=== PATIENT | male | born 1990 | race Two or more races ===

== ENCOUNTER 2024-01-31 12:02 | Inpatient (IN) | payer MEDICAID, SELFPAY ==
[2024-01-31 12:02] VITALS: PULSE 78; RESP 16; O2SAT 98
[2024-01-31 12:05] VITALS: BP 116/83; PULSE 99; RESP 23; TEMP 36.9
--- NOTE | 2024-01-31 15:02 | PC.NURSE ---
Admitted a 33 y/o male, mechanically ventilated from Tele via bed under the care of Dr Velasquez. Alert and responsive. Denies any pain or discomfort. Noted to have scattered redness /rashes to back, shoulder blades and lower back, c/o itching. Resident admitted with diagnosis of Pneumonia and will be on Augmentin and Doxycycline po. As per from the Tele nurse, resident completed the Oseltamivir for the Influenza. Seen by Dr Velasquez today, made aware of the admission and orders, with order received to discontinue the melatonin. Kept comfortably in bed. Call light within reach.
--- NOTE | 2024-01-31 15:08 | PC.SS ---
Resident admitted to subacute care on ventilator with trach in place, he eats by mouth. Resident does not have muslim preference and does not wish to have spiritual care visits from payment analyst. Resident mother Olive Galdamez, at bedside and is his decision maker. Resident has clear speech able to make needs known, he is alert and oriented. Resident was seen by Food Tester Dr. Padmaja Ureña with no recommendations, he will be seen by professor of communication and writing and DDS. He is not a registered voter or has any background. Resident mother will do his laundry, resident refuses to have his inventory labeled, this SSD informed him all items should be labeled in the event they are misplaced. He declined, no items will be labeled and family will remain responsible for all items. Resident is FULL CODE, with full treatment, he will remain in current care for unknown length of time.
--- NOTE | 2024-01-31 15:15 | PC.SS ---
This SSD completed admission packet with resident MARILEE Galdamez at resident bedside. No POA in place service has been offered, resident said he will think about it. This SSD will follow up with resident regarding POA service.
--- NOTE | 2024-01-31 15:42 | PC.IP ---
IP note: At 1400 placed TST to RUE and resident tolerated well. Discussed with him and offered after completion of antibiotic therapy, the current Influenza vaccine and also at an appropriate time receive the Pneumococcal vaccine. Resident was receptive to the idea of the vaccines and I will follow up after antibiotic therapy is complete and no indication of fever or infection are present.
[2024-01-31 16:00] VITALS: BP 109/77; PULSE 89; RESP 26; TEMP 36.8; O2SAT 98
--- NOTE | 2024-01-31 16:29 | PC.SS ---
Resident seen by Spanish Lecturer Dr. Ureña for annual optometry consultation. Resident tolerated treatment well, no new orders or recommendations, resident will continue current care.
[2024-01-31 18:26] VITALS: PULSE 81; PULSE 89; RESP 28; O2SAT 99
--- NOTE | 2024-01-31 20:05 | PD.SAHP ---
Physical exam Physical Exam Vital signs: Temp Pulse Resp BP Pulse Ox O2 Del Method FiO2 98.9 F 110 H 14 116/81 99 Mechanical Ventilation 30 02/01/24 17:13 02/01/24 17:13 02/01/24 17:13 02/01/24 17:13 02/01/24 17:13 02/01/24 17:13 02/01/24 12:40 Narrative: awake , alert, VSS Constitutional Constitutional: no acute distress and cooperative Comments: VSS HEENT Exam Head: Present normocephalic and atraumatic Eye: Present EOMI and PERRL ENT: Present mucous membranes moist, external ear normal and TM's clear bilaterally Neck Exam Neck: Present supple Chest/Breast/Axilla Exam Comments: NAD Respiratory Exam Respiratory: Present chest non-tender, lungs clear, normal breath sounds and patient mechanically ventilated Cardiovascular Exam Cardiovascular: Present RRR, S1 and S2 Abdominal Exam Abdominal: Present soft and normoactive bowel sounds Rectal Exam Comments: deferred Exam Comments: Incontinent. No anatomical deficit Extremities Exam Comments: General muscular atrophy more so of the proximal muscles of the upper and lower extremities Back/Spine/Pelvis Exam Comments: NAD Skin Exam Comments: NAD Neurological Exam Neurological: Present alert and oriented X3 Comments: Bed bound because of severe muscular atrophy as in LIMB GIRDLE MUSCULAR ATROPHY and depencent for all care but normal mentation, voice and swallowing Psychiatric Exam Comments: NAD Rehabilitation potential Diagnosis (1) Pneumonia and influenza: Status: Acute (2) Ventilator dependence: Status: Chronic (3) Limb-girdle muscular dystrophy, type 2B: Status: Chronic (4) Tracheostomy in place: Status: Chronic (5) Chronic respiratory failure with hypoxia and hypercapnia: Status: Chronic (6) G tube feedings: Status: Chronic Assessment & Plan Assessment: Pt very cooperative and adjusting to his new environment. All questions answered. Weaning of ventilator was explained. ongoing treatment for Pneumonia. Bladder training to evaluate if pt can be taken off the Avendaño catheter. Plan: treatment and ventilator settings reviewed and continued. Prognosis Prognosis: Very guarded because of the chronic and progressive nature of LGMD If patient not informed of condion, describe why: Pt is very understanding of his diagnosis and prognostic outlook Goals Full, medical, nutritional and Psychological support HPI History of Present Illness HPI: Pt is a 33 years of age with Dx of Limb Girdle muscular dystrophy reportedly type 2B now in . respiratory failure/hypoxia with Trach and Ventilator dependence; Peg tube feeding though pt able to have some PO pureed food for taste in the past, on continued treatment for pneumonia/UTI and responding well to antibiotics; Urinary retention with an indwelling Avendaño catheter being readmitted from acute care after recent discharge home
[2024-01-31] MEDS: AMOXICILLIN/POTASSIUM CLAV 1 EACH TABLET PO (20:25)
[2024-01-31] MEDS: CARBAMIDE PEROXIDE OTIC SOL 15 ML BTL 5 DROP BOTH EARS (20:27)
[2024-01-31] MEDS: FERROUS SULFATE 220 MG/5 ML ELIXIR 300 MG PO (20:28)
[2024-01-31] MEDS: DOXYCYCLINE 100 MG TABLET PO (20:28)
[2024-02-01] VITALS (8 sets, daily range): BP systolic 106–127; BP diastolic 74–84; PULSE 65–127; RESP 14–34; TEMP 36.3–37.2; O2SAT 94–99
[2024-02-01] MEDS: AMOXICILLIN/POTASSIUM CLAV 1 EACH TABLET PO ×2 (09:48→20:20)
[2024-02-01] MEDS: DOXYCYCLINE 100 MG TABLET PO ×2 (09:48→20:20)
--- NOTE | 2024-02-01 12:28 | PC.SS ---
This SSD met with resident and MARILEE Schaefer at resident bedside, went over DC planning and discussed other topics resident wanted to talk about. resident is here for LT subacute care, hes on ventilator with trach in place he requires total care. Resident will remain in current care and will have all subacute care needs shola by staff as his mother is unable to provide care for him at home due to it being a heavy care regimen for her. Resident stated he his mother tried to care for him at home but it was too much for her to handle on her own, he stated he is happy to be back and it feels like home resident is in good spirits he is seen smiling and stated he is happy and relieved to be back in facility. This SSD will continue to make contact with resident monitor for any changes in mood and behavior, and will be offered emotional support as needed. Mother will be in daily for visits.
--- NOTE | 2024-02-01 12:34 | PC.SS ---
Resident and mother Olive Galdamez stated they would like a visitor restriction for resident father Osei Galdamez. Both stated they do not want him being provided any updates or information and would not like him to be allowed in for any visits. This SSD informed EMILIO CASTILLO, charge nurse and front lobby check in and security of the restriction per request of resident and RP Olive Galdamez.
[2024-02-02] VITALS (8 sets, daily range): BP systolic 94–114; BP diastolic 68–84; PULSE 71–105; RESP 16–32; TEMP 36.3–36.8; O2SAT 95–99
[2024-02-02] MEDS: AMOXICILLIN/POTASSIUM CLAV 1 EACH TABLET PO ×2 (09:07→21:31)
[2024-02-02] MEDS: DOXYCYCLINE 100 MG TABLET PO ×2 (09:07→21:29)
[2024-02-02] MEDS: IPRATROPIUM/ALBUTEROL 3 ML AMPUL.NEB INH (18:31)
[2024-02-02] MEDS: FERROUS SULFATE 220 MG/5 ML ELIXIR 300 MG PO (21:29)
[2024-02-03] VITALS (8 sets, daily range): BP systolic 100–115; BP diastolic 67–79; PULSE 78–103; RESP 15–32; TEMP 36.2–37; O2SAT 95–99
[2024-02-03] MEDS: AMOXICILLIN/POTASSIUM CLAV 1 EACH TABLET PO ×2 (08:35→21:21)
[2024-02-03] MEDS: DOXYCYCLINE 100 MG TABLET PO ×2 (08:35→21:21)
--- NOTE | 2024-02-03 18:20 | PD.SAPROG ---
Progress Note - SubAcute DIAGNOSIS (1) Pneumonia and influenza: Status: Acute (2) Ventilator dependence: Status: Chronic (3) Limb-girdle muscular dystrophy, type 2B: Status: Chronic (4) Tracheostomy in place: Status: Chronic (5) Chronic respiratory failure with hypoxia and hypercapnia: Status: Chronic (6) G tube feedings: Status: Chronic SUBJECTIVE Fever:: none Shortness of Breath:: none Pain:: none OBJECTIVE Most recent vital signs: Last Vital Signs Temp 98.2 F 02/03/24 17:42 Pulse 92 02/03/24 17:42 Resp 27 H 02/03/24 17:42 BP 101/74 02/03/24 17:42 Pulse Ox 97 02/03/24 17:42 O2 Del Method Mechanical Ventilation 02/03/24 17:42 FiO2 30 02/03/24 12:30 Neurological:: alert Answers questions:: yes Respiratory:: rhonchi Cardiovascular: RRR Abdomen: soft and nontender Extremities:: deformities (Limb girdle muscle weakness severe due to dystrophy and pt thus bed bound) Tracheostomy:: to ventilator Feeding per:: po Complaints:: none ASSESSMENT & PLAN Assessment: Pt very cooperative and adjusting to his new environment. All questions answered. Weaning off ventilator as per protocol. Plan: treatment and ventilator settings reviewed and continued.
[2024-02-04] VITALS (9 sets, daily range): BP systolic 107–112; BP diastolic 60–81; PULSE 79–104; RESP 14–37; TEMP 36.1–37; O2SAT 97–100
[2024-02-04] MEDS: AMOXICILLIN/POTASSIUM CLAV 1 EACH TABLET PO ×2 (09:39→21:02)
[2024-02-04] MEDS: DOXYCYCLINE 100 MG TABLET PO ×2 (09:39→21:05)
--- NOTE | 2024-02-04 13:27 | PC.PT ---
PT eval completed. Patient is referred to [facility] for PROM on BUE/BLE.
[2024-02-04] MEDS: FERROUS SULFATE 220 MG/5 ML ELIXIR 300 MG PO (21:05)
[2024-02-05 00:46] VITALS: PULSE 87; RESP 24; O2SAT 98
[2024-02-05 05:18] VITALS: PULSE 76; RESP 17; O2SAT 95
[2024-02-05] MEDS: AMOXICILLIN/POTASSIUM CLAV 1 EACH TABLET PO ×2 (09:23→20:48)
[2024-02-05] MEDS: DOXYCYCLINE 100 MG TABLET PO ×2 (09:24→20:48)
[2024-02-05 12:00] VITALS: BP 130/92; PULSE 83; RESP 18; TEMP 37.2; O2SAT 100
[2024-02-05 13:00] VITALS: PULSE 79; PULSE 82; RESP 30; RESP 39; O2SAT 100; O2SAT 96
[2024-02-05] MEDS: IPRATROPIUM/ALBUTEROL 3 ML AMPUL.NEB INH (13:00)
[2024-02-05 17:59] VITALS: BP 121/75; PULSE 97; RESP 18; TEMP 36.6; O2SAT 100
[2024-02-05 18:55] VITALS: PULSE 79; RESP 36; O2SAT 97; O2SAT 98
[2024-02-06] VITALS (8 sets, daily range): BP systolic 96–102; BP diastolic 61–66; PULSE 81–97; RESP 14–35; TEMP 36.4–36.9; O2SAT 92–100
[2024-02-06] MEDS: AMOXICILLIN/POTASSIUM CLAV 1 EACH TABLET PO ×2 (09:43→21:06)
[2024-02-06] MEDS: DOXYCYCLINE 100 MG TABLET PO ×2 (09:43→21:06)
[2024-02-06] MEDS: IPRATROPIUM/ALBUTEROL 3 ML AMPUL.NEB INH (13:00)
[2024-02-06] MEDS: FERROUS SULFATE 220 MG/5 ML ELIXIR 300 MG PO (21:08)
[2024-02-07] VITALS (8 sets, daily range): BP systolic 94–110; BP diastolic 59–73; PULSE 68–96; RESP 14–34; TEMP 36.3–37.1; O2SAT 97–99
[2024-02-07] MEDS: DOXYCYCLINE 100 MG TABLET PO ×2 (09:10→20:21)
[2024-02-07] MEDS: AMOXICILLIN/POTASSIUM CLAV 1 EACH TABLET PO ×2 (09:10→20:21)
--- NOTE | 2024-02-07 18:37 | PC.NURSE ---
Scot remains on PO antibiotic therapy for PNA, tolerating it well no adverse reactions noted. Will continue to monitor.
--- NOTE | 2024-02-07 21:55 | PD.SAPROG ---
Progress Note - SubAcute DIAGNOSIS (1) Pneumonia and influenza: Status: Acute (2) Ventilator dependence: Status: Chronic (3) Limb-girdle muscular dystrophy, type 2B: Status: Chronic (4) Tracheostomy in place: Status: Chronic (5) Chronic respiratory failure with hypoxia and hypercapnia: Status: Chronic (6) G tube feedings: Status: Chronic SUBJECTIVE Fever:: none Shortness of Breath:: none Pain:: none OBJECTIVE Most recent vital signs: Last Vital Signs Temp 98.8 F 02/07/24 18:00 Pulse 96 02/07/24 18:00 Resp 34 H 02/07/24 18:00 BP 100/65 02/07/24 18:00 Pulse Ox 98 02/07/24 18:00 O2 Del Method Mechanical Ventilation 02/07/24 18:00 FiO2 30 02/07/24 11:30 Neurological:: alert Answers questions:: yes Respiratory:: rhonchi Cardiovascular: RRR Abdomen: soft and nontender Extremities:: deformities (Limb girdle muscle weakness severe due to dystrophy and pt thus bed bound) Tracheostomy:: to ventilator Feeding per:: po Complaints:: none ASSESSMENT & PLAN Assessment: Pt very cooperative and adjusting to his new environment. All questions answered. Weaning off ventilator as per protocol. Plan: treatment and ventilator settings reviewed and continued.
[2024-02-08] VITALS (9 sets, daily range): BP systolic 96–107; BP diastolic 63–74; PULSE 64–102; RESP 25–35; TEMP 36.2–36.9; O2SAT 95–99
[2024-02-08] MEDS: AMOXICILLIN/POTASSIUM CLAV 1 EACH TABLET PO ×2 (09:16→20:43)
[2024-02-08] MEDS: DOXYCYCLINE 100 MG TABLET PO ×2 (09:17→20:43)
[2024-02-08] MEDS: IPRATROPIUM/ALBUTEROL 3 ML AMPUL.NEB INH (16:11)
[2024-02-08] MEDS: FERROUS SULFATE 220 MG/5 ML ELIXIR 300 MG PO (20:43)
[2024-02-09] VITALS (8 sets, daily range): BP systolic 99–105; BP diastolic 66–77; PULSE 70–97; RESP 19–37; TEMP 36.3–36.8; O2SAT 96–99
[2024-02-09] MEDS: DOXYCYCLINE 100 MG TABLET PO (09:20)
[2024-02-09] MEDS: AMOXICILLIN/POTASSIUM CLAV 1 EACH TABLET PO (09:20)
--- NOTE | 2024-02-09 14:55 | PD.SAPROG ---
Progress Note - SubAcute DIAGNOSIS (1) Pneumonia and influenza: Status: Acute (2) Ventilator dependence: Status: Chronic (3) Limb-girdle muscular dystrophy, type 2B: Status: Chronic (4) Tracheostomy in place: Status: Chronic (5) Chronic respiratory failure with hypoxia and hypercapnia: Status: Chronic (6) G tube feedings: Status: Chronic SUBJECTIVE Fever:: none Shortness of Breath:: none Pain:: none OBJECTIVE Most recent vital signs: Last Vital Signs Temp 97.8 F 02/13/24 12:00 Pulse 68 02/13/24 13:02 Resp 17 02/13/24 07:11 BP 106/74 02/13/24 12:00 Pulse Ox 98 02/13/24 13:02 O2 Del Method Mechanical Ventilation 02/13/24 05:56 FiO2 30 02/13/24 13:02 Neurological:: alert Answers questions:: yes Respiratory:: rhonchi Cardiovascular: RRR Abdomen: soft and nontender Extremities:: deformities (Limb girdle muscle weakness severe due to dystrophy and pt thus bed bound) Tracheostomy:: to ventilator Feeding per:: po Complaints:: none ASSESSMENT & PLAN Assessment: Pt very cooperative and adjusting to his new environment. All questions answered. Weaning off ventilator as per protocol. Plan: treatment and ventilator settings reviewed and continued.
[2024-02-10] VITALS (8 sets, daily range): BP systolic 94–108; BP diastolic 63–74; PULSE 60–91; RESP 19–34; TEMP 36.3–36.7; O2SAT 97–99
--- NOTE | 2024-02-10 10:48 | PC.SS ---
Resident is in activities room via bed, he is well groomed seen eating candy and getting ready to carve a pumpkin. Resident is seen smiling and socializing with staff. Resident is adjusting well to supervisor intermediates subacute placement.
[2024-02-10] MEDS: FERROUS SULFATE 220 MG/5 ML ELIXIR 300 MG PO (20:40)
--- NOTE | 2024-02-10 22:10 | PC.NURSE ---
I Visited Scot, ask how he feels and stated he feel much better that we switch SHIPFITTER, . made aware that resident is being anxious under the care previous SHIPFITTER.
[2024-02-11] VITALS (8 sets, daily range): BP systolic 104–119; BP diastolic 60–79; PULSE 71–90; RESP 18–37; TEMP 36.4–36.6; O2SAT 96–99
[2024-02-11] MEDS: ACETAMINOPHEN 325 MG TABLET 650 MG GT (06:10)
[2024-02-11 08:45] LABS: Basophils # (Auto) 0.1 Thou/mm3 (0.0-0.2); Basophils % (Auto) 1 % (0-2.5); Eosinophils # (Auto) 0.1 Thou/mm3 (0.0-0.5); Eosinophils % (Auto) 1 % (0-10); Hematocrit 34.7 % (41.0-53.0); Hemoglobin 11.4 g/dL (13.5-16.0); Immature Granulocytes % (Auto) 0 % (0-0); Immature Granulocytes Auto 0.04 Thou/mm3 (0.00-0.00); Lymphocytes # (Auto) 1.1 Thou/mm3 (1.0-4.8); Lymphocytes % (Auto) 12 % (10-50); Mean Corpuscular HGB Conc 32.9 g/dl (31.0-37.0); Mean Corpuscular Hemoglobin 30.5 pg (25.0-35.0); Mean Corpuscular Volume 93 fL (80-100); Monocytes # (Auto) 0.5 Thou/mm3 (0.0-0.8); Monocytes % (Auto) 6 % (0-12); Neutrophils # (Auto) 7.2 Thou/mm3 (1.8-7.7); Neutrophils % (Auto) 80 % (37-80); Nucleated Red Blood Cell % 0 /100 WBC (0); Platelet Count 363 Thou/mm3 (140-440); RDW Standard Deviation 48.6 fL (35.1-43.9); Red Blood Count 3.74 Miln/mm3 (4.50-5.90); White Blood Count 9.1 Thou/mm3 (3.8-10.6)
[2024-02-11 09:03] LABS: Alanine Aminotransferase 65 U/L (10-49); Albumin/Globulin Ratio 1.5 (1.2-2.2); Alkaline Phosphatase 80 U/L (46-116); Anion Gap 5 (7-16); Aspartate Amino Transferase 41 U/L (0-34); BUN/Creatinine Ratio 40 Ratio (12-20); Bilirubin,Total 0.2 mg/dL (0.3-1.2); Blood Urea Nitrogen 8 mg/dL (9-23); Calcium 10.2 mg/dL (8.3-10.6); Calcium (Corrected) 10.2 mg/dL (8.5-10.1); Carbon Dioxide 28.3 mMol/L (20.0-31.0); Chloride 103 mMol/L (98-107); Creatinine (Component) 0.2 mg/dL (0.6-1.3); Estimated Creatinine Clearance 261.3 mL/min (>60); Globulin 2.6 gm/dL (2.3-3.5); Glucose 109 mg/dL (74-106); Osmolality,Calculated 271 (275-295); Potassium 3.8 mMol/L (3.4-5.1); Sodium 136 mMol/L (136-145); Total Protein 6.6 gm/dL (5.7-8.2); eGFR > 60 See Note
--- NOTE | 2024-02-11 16:22 | PC.SS ---
This SSD was informed by charge nurse of resident complaint regarding staff member who he no longer wants on his service. This SSD spoke with resident regarding his concenrs, resident gave detailed report on his reasoning for not wanting this staff member on his services. Resident stated yesterdays day shift charge nurse was able to remove this staff member from his services. This SSD asked resident how he felt with new staff member on his service, he stated better with a smile. Resident is alert and oriented X3. This SSD informed resident his complaint will be addressed and discussed with DON and DSD. This SSD reminded resident he will be treated with dignity and respect and if he feels uncomfortable about anything it is important he mentions it immediately. This SSD will continue to follow up with resident and monitor for changes in mood and behavior.
--- NOTE | 2024-02-11 18:37 | PC.NURSE ---
Patient is stable at this time. No concerns from patient when asked if his day was going good. The patient has been laughing and smiling during the shift. The patient's call light has been answered appropriately and timely during the shift. All needs and concerns addressed. Call light and personal phone are within reach at all times. will continue to monitor patient. no distress noted and states feeling fine today.
[2024-02-12] VITALS (8 sets, daily range): BP systolic 102–131; BP diastolic 71–75; PULSE 70–80; RESP 18–74; TEMP 36.3–36.6; O2SAT 98–99
--- NOTE | 2024-02-12 06:44 | PC.NURSE ---
Scot slept most of the night. No discomfort noted. The patient's call light has been answered appropriately and timely during the shift. All needs and concerns addressed. Call light and personal phone are within reach at all times. will continue to monitor patient.
--- NOTE | 2024-02-12 10:14 | PC.NURSE ---
Scot was smiling during the rounds, he stated he fells better now than the previous days, he also stated no worries at this time, they answer his call light in timely, and he only wants to have a private room so that he can bring his video games.
[2024-02-12] MEDS: FERROUS SULFATE 220 MG/5 ML ELIXIR 300 MG PO (21:15)
[2024-02-13] VITALS (8 sets, daily range): BP systolic 94–108; BP diastolic 61–74; PULSE 66–79; RESP 17–31; TEMP 36.1–36.6; O2SAT 98–99
--- NOTE | 2024-02-13 19:15 | PC.NURSE ---
patient on monitoring, psychosocially stable no apparent distress noted, patient interacting and smiling, shared his pictures on his phone about his collection.
[2024-02-14 01:58] VITALS: PULSE 63; RESP 14; O2SAT 98
[2024-02-14 05:48] VITALS: BP 94/58; PULSE 61; RESP 26; TEMP 36.2
[2024-02-14 07:05] VITALS: PULSE 0; PULSE 60; RESP 34; O2SAT 99
--- NOTE | 2024-02-14 07:06 | PC.NURSE ---
Psychosocial monitoring ongoing. Alert and able to make needs known. Pleasant and cooperative with care, laughing and joking with staff.
--- NOTE | 2024-02-14 09:23 | PC.IP ---
IP note: Morning visit to Scot while rounding. States he feels 'pretty good', smiling. Talked about the time change and stated he had a good weekend.
--- NOTE | 2024-02-14 11:20 | PC.SS ---
Room visit: Resident reports feeling supported by staff and continues to engage in conversation. He denies any anxiety, depression says he is is feeling good and is happy in facility. Resident remains in current care in same room with increased monitoring with support.Resident states he is good and feels happy to be here while his mother is no linger able to care for him at home. This SSD asked resident emotionally how he feels with progress of events, he says he is fine and happy with his care. This SSD informed resident ongoing support visits will continue he is encouraged to maintain open communication to be able to express his feelings. This SSD will continue to follow up offer emotional support and monitor for changes in mood and behavior.
[2024-02-14 12:00] VITALS: BP 111/72; PULSE 63; PULSE 71; RESP 33; TEMP 36.8; O2SAT 98
--- NOTE | 2024-02-14 14:30 | PD.SAPROG ---
Progress Note - SubAcute DIAGNOSIS (1) Pneumonia and influenza: Status: Acute (2) Ventilator dependence: Status: Chronic (3) Limb-girdle muscular dystrophy, type 2B: Status: Chronic (4) Tracheostomy in place: Status: Chronic (5) Chronic respiratory failure with hypoxia and hypercapnia: Status: Chronic (6) G tube feedings: Status: Chronic SUBJECTIVE Fever:: none Shortness of Breath:: none Pain:: none OBJECTIVE Most recent vital signs: Last Vital Signs Temp 99.3 F 02/18/24 18:00 Pulse 28 L 02/18/24 18:00 Resp 28 H 02/18/24 18:00 BP 96/63 02/18/24 18:00 Pulse Ox 98 02/18/24 12:40 O2 Del Method Nasal Cannula 02/18/24 12:00 FiO2 30 02/18/24 12:40 Neurological:: alert Answers questions:: yes Respiratory:: rhonchi Cardiovascular: RRR Abdomen: soft and nontender Extremities:: deformities (Limb girdle muscle weakness severe due to dystrophy and pt thus bed bound) Tracheostomy:: to ventilator Feeding per:: po Complaints:: none ASSESSMENT & PLAN Assessment: Pt very cooperative and adjusting to his new environment. All questions answered. Weaning off ventilator as per protocol. Plan: treatment and ventilator settings reviewed and continued.
[2024-02-14 18:00] VITALS: BP 133/86; PULSE 81; RESP 33; TEMP 36.6; O2SAT 97
[2024-02-14 18:48] VITALS: PULSE 66; RESP 32; O2SAT 99
[2024-02-14] MEDS: FERROUS SULFATE 220 MG/5 ML ELIXIR 300 MG PO (20:32)
[2024-02-15] VITALS (9 sets, daily range): BP systolic 96–112; BP diastolic 59–77; PULSE 60–92; RESP 16–37; TEMP 36.4–36.8; O2SAT 96–99
--- NOTE | 2024-02-15 10:32 | PC.SS ---
Resident is laying in bed with head of the bed elevated with call light properly placed with no signs of distress. Resident is in good spirits he is social and continues to enjoy room visits from staff. Resident is not showing any changes in mood and behavior he remains positive and is seen smiling and engaging. Resident stated he will be going to activities tomorrow as he enjoyed going on Halloween for the first time. Resident states he is receiving good care and is pleased with his care team. Resident stated he spoke with his mother about incident. This SSD informed resident mother will be called to follow up, he stated that would be nice This SSD called and spoke with resident mother Olive Galdamez who stated she is aware of incident and is pleased resident is good and in good spirits. No other questions or concerns from resident of Olive. This SSD will continue to follow up with resident and monitor for changes, he will continue to receive support visits.
[2024-02-16] VITALS (8 sets, daily range): BP systolic 112–136; BP diastolic 73–81; PULSE 59–85; RESP 18–37; TEMP 36.1–36.8; O2SAT 98–99
--- NOTE | 2024-02-16 14:50 | PC.SS ---
This SSD followed up with resident, he was in activities room via bed seen participating in activities. Resident is social and enjoys being around staff, resident is not showing any changes in mood and behavior. Resident said his mother came in for a visit this morning, he said he was happy to see her. Resident stated he is doing good and denies any anxiety or depression, no sings of trauma. This SSD will continue to make daily contact with resident and monitor for changes, he will have support visits.
[2024-02-16] MEDS: FERROUS SULFATE 220 MG/5 ML ELIXIR 300 MG PO (20:17)
[2024-02-17] VITALS (7 sets, daily range): BP systolic 99–110; BP diastolic 61–66; PULSE 68–92; RESP 17–34; TEMP 36.2–36.4; O2SAT 96–99
--- NOTE | 2024-02-17 16:14 | PC.SS ---
Room visit: Resident is laying in bed with head of the bed elevated with call light properly placed, He is seen smiling and engaging with staff, his mother is at bedside. Resident says he continues to have good days and nights. He said he has no complaints on the care says he is happy. resident is not showing any changes in mood and behavior. This SSD will continue to follow up with resident and offer support as needed. No questions or concerns from mother.
[2024-02-18] VITALS (8 sets, daily range): BP systolic 96–106; BP diastolic 61–70; PULSE 28–99; RESP 15–35; TEMP 36.6–37.4; O2SAT 97–99
--- NOTE | 2024-02-18 12:38 | PC.SS ---
Resident is laying in bed with head of the bed elevated with call light properly placed with no signs of distress. Resident states he is happy and is doing well, he states he is receiving good care, he is having his call light answered appropriately and enjoys the care team on his service. Resident spoke about mom said she id doing better as she has been ill. Resident continues to ask for private room, this SSD informed him currently there is no private rooms available, resident says he understands. Resident currently has no changes in mood or behavior, he continues to attend activities says he enjoys being there. This SSD will continue to make daily contact with resident and offer emotional support as he may needs.
--- NOTE | 2024-02-18 17:46 | PC.NURSE ---
Report received from resident's nurse that resident refused his dinner and stated that he loss his appetite after staffs had changed his roommate when he had a bowel movement . And resident is requesting for a single room but no single room available at this time. Explanation given to the resident. Report given to JONATHAN and sent email to SS
[2024-02-18] MEDS: FERROUS SULFATE 220 MG/5 ML ELIXIR 300 MG PO (21:04)
--- NOTE | 2024-02-18 21:54 | PC.NURSE ---
During ore charger round, resident verbalized to this nurse feeling sad about his current situation, he stated he really wants a room by himself, resident also said, I been thinking I do not want to resuscitated. Resident also mentioned if he doesn't get a room by himself by Thanksgiving he will refused Thanksgiving dinner, resident also talked about his struggles when he was younger, resident was mentioned he might want to be transferred to another facility if he doesn't get a room by himself, emotional support provided, concerns will be informed to social worker school.
[2024-02-19] VITALS (8 sets, daily range): BP systolic 95–107; BP diastolic 59–70; PULSE 64–79; RESP 15–38; TEMP 36.3–36.4; O2SAT 98–99
[2024-02-20] VITALS (9 sets, daily range): BP systolic 96–109; BP diastolic 59–73; PULSE 67–98; RESP 17–40; TEMP 36.2–36.9; O2SAT 98–99
--- NOTE | 2024-02-20 17:26 | PC.NURSE ---
Received a call from security , resident's dad and aunt are in the front lobby to visit. Resident and his mom doesn't want them to come and see him.
[2024-02-20] MEDS: FERROUS SULFATE 220 MG/5 ML ELIXIR 300 MG PO (20:20)
[2024-02-21 00:30] VITALS: PULSE 91; RESP 21; O2SAT 99
[2024-02-21 05:42] VITALS: BP 97/62; PULSE 88; RESP 28; TEMP 36.4; O2SAT 99
[2024-02-21 06:29] VITALS: PULSE 67; RESP 27; O2SAT 100
[2024-02-21 13:33] VITALS: PULSE 82; RESP 32; O2SAT 99
[2024-02-21 17:57] VITALS: BP 120/68; PULSE 92; RESP 35; TEMP 36.6; O2SAT 99
[2024-02-21 19:25] VITALS: PULSE 71; RESP 25; O2SAT 99
[2024-02-22] VITALS (9 sets, daily range): BP systolic 100–126; BP diastolic 60–81; PULSE 62–97; RESP 14–36; TEMP 36.1–36.6; O2SAT 97–99
--- NOTE | 2024-02-22 11:56 | PC.SS ---
Room visit: Resident is laying in bed with head of the bed elevated with call light properly placed with no sign of distress. Resident mother was at bedside. Resident stated he had a long weekend resident said it was not the best as he had some complaints and has asked to be moved to a private room. This SSD informed him there was no private rooms available at this time. Resident spoke about his father attempting to come see him, resident became emotional and spoke further of his troubles with his father. This SSD offered him emotional support and reassurance, resident was provided with a safe space to express himself openly and freely. Resident was able to process his feelings and was no longer tearful. This SSD stayed with resident until he said he felt better. This SSD will continue to follow up with resident and offer emotional support as he will accept.
--- NOTE | 2024-02-22 13:26 | PC.SS ---
This SSD notified via email by weekend charge nurse resident asked to be moved to private room. Resident stated if he was not moved to a private room he would consider moving to another facility and would refuse to eat thanksgiving dinner. This SSD spoke with resident about these statements, resident said he was having a bad weekend when he said this. This SSD informed him both facilities he was asking to be moved to do not have private rooms in facility, this SSD did inform him referral to other facilities will be sent if this is what he and his mother would like done. Resident stated no private room is a deal breaker. Resident stated he would wait until a private room becomes available for him in current place. This SSD spoke with resident regarding his comments he has made if he does not get a private room, resident asked if another resident can be moved from a private room to give to him, this SSD informed him we cannot move resident from rooms without consent from resident and family. Resident stated he understood. Reporting charge nurse and DON made aware of conversation with resident. This SSD will continue to follow up with resident and monitor for changes in mood and behavior related to adjusting to environment.
--- NOTE | 2024-02-22 14:55 | PC.SS ---
Ganesh came to do bedside follow up with resident regarding his complaint against a staff member. Ganesh stated resident said he is pleased with outcome of events and is doing good. Ganesh said she is pleased with action taken, Ganesh aware this SSD continues follow up visits with resident. Resident will continue to receive support visits.
[2024-02-22] MEDS: FERROUS SULFATE 220 MG/5 ML ELIXIR 300 MG PO (20:40)
--- NOTE | 2024-02-22 21:38 | PD.SAPROG ---
Progress Note - SubAcute DIAGNOSIS (1) Pneumonia and influenza: Status: Acute (2) Ventilator dependence: Status: Chronic (3) Limb-girdle muscular dystrophy, type 2B: Status: Chronic (4) Tracheostomy in place: Status: Chronic (5) Chronic respiratory failure with hypoxia and hypercapnia: Status: Chronic (6) G tube feedings: Status: Chronic SUBJECTIVE Fever:: none Shortness of Breath:: none Pain:: none OBJECTIVE Most recent vital signs: Last Vital Signs Temp 97.0 F 02/22/24 18:00 Pulse 97 02/22/24 18:00 Resp 14 02/22/24 18:00 BP 126/81 02/22/24 18:00 Pulse Ox 98 02/22/24 18:00 O2 Del Method Mechanical Ventilation 02/21/24 17:57 FiO2 30 02/22/24 12:20 Neurological:: alert Answers questions:: yes Respiratory:: rhonchi Cardiovascular: RRR Abdomen: soft and nontender Extremities:: deformities (Limb girdle muscle weakness severe due to dystrophy and pt thus bed bound) Tracheostomy:: to ventilator Feeding per:: po Complaints:: none ASSESSMENT & PLAN Assessment: Pt very cooperative and adjusting to his new environment. All questions answered. Weaning off ventilator as per protocol. Plan: treatment and ventilator settings reviewed and continued.
[2024-02-23] VITALS (9 sets, daily range): BP systolic 102–114; BP diastolic 64–74; PULSE 64–87; RESP 14–34; TEMP 36.2–36.5; O2SAT 97–100
--- NOTE | 2024-02-23 10:05 | PC.SS ---
Room visit: Resident is laying in bed he is well groomed with call light properly placed with no signs of distress. Resident enjoys room visit and enjoys engaging in conversation with staff. This SSD followed with resident, he states he is having a better day than yesterday. Today resident is seen smiling, he said he is having a good day and appreciates the visits and check ins. This SSD spoke with resident regarding yesterdays visit with Ganesh, this SSD explained to him what the purpose of the visit is. Spoke with resident of the services Ganesh provides and where to contact [facility] if needed. Resident stated she did come in and provided him with a pamphlet. Resident had no questions or concerns. Resident states he remains happy and is receiving good care and is happy with his care team. When asked if his call light is answered in a timely manner, resident said yes This SSD continues to follow up with resident and continues to monitor him for changes in mood and behavior.
--- NOTE | 2024-02-23 13:16 | PC.NURSE ---
Seen by Dr Velasquez,no new orders made
[2024-02-23] MEDS: IPRATROPIUM/ALBUTEROL 3 ML AMPUL.NEB INH (18:53)
[2024-02-24] VITALS (8 sets, daily range): BP systolic 99–108; BP diastolic 59–69; PULSE 66–86; RESP 16–39; TEMP 36.3–36.9; O2SAT 97–99
--- NOTE | 2024-02-24 16:18 | PC.SS ---
Room visit: Resident is laying in bed with head of the bed elevated with call light properly placed with no signs of distress. Resident mother Olive is at bedside, both said they are doing well. Resident is seen smiling and in good spirits. Resident stated he had a visit from [facility] said she had some questions for him, resident did not have any questions or concerns regarding the visit. Resident remains in current care and will continue to have daily room visit to monitor changes in mood and behavior.
[2024-02-24] MEDS: FERROUS SULFATE 220 MG/5 ML ELIXIR 300 MG PO (21:31)
[2024-02-25] VITALS (9 sets, daily range): BP systolic 102–114; BP diastolic 65–76; PULSE 69–96; RESP 24–34; TEMP 36.2–37.2; O2SAT 95–99
--- NOTE | 2024-02-25 16:22 | PC.SS ---
Room visit: This SSD met with resident at bedside to discuss request for private room, charge nurse stated she re eived call from resident mother requesting private room. This SSD informed resident there was not an available room at this time. Resident asked to move a patient who does not speak out of a private room, this SSD informed him that is not a practice done here and will not be done unless the room is needed for observation/isolation. Resident is upset and said he will speak to his mother about moving him to a facility where he can have a private room. This SSD will follow up with resident to monitor for changes in mood and behavior.
[2024-02-26] VITALS (8 sets, daily range): BP systolic 95–101; BP diastolic 59–69; PULSE 67–92; RESP 15–32; TEMP 36.3–36.7; O2SAT 97–988
[2024-02-26] MEDS: FERROUS SULFATE 220 MG/5 ML ELIXIR 300 MG PO (20:46)
[2024-02-27] VITALS (8 sets, daily range): BP systolic 94–115; BP diastolic 58–78; PULSE 62–84; RESP 11–31; TEMP 36.2–36.8; O2SAT 98–100
--- NOTE | 2024-02-27 12:01 | PD.SAPROG ---
Progress Note - SubAcute DIAGNOSIS (1) Ventilator dependence: Status: Chronic (2) Limb-girdle muscular dystrophy, type 2B: Status: Chronic (3) Tracheostomy in place: Status: Chronic (4) Chronic respiratory failure with hypoxia and hypercapnia: Status: Chronic (5) G tube feedings: Status: Chronic SUBJECTIVE Fever:: none Shortness of Breath:: none Pain:: none OBJECTIVE Most recent vital signs: Last Vital Signs Temp 97.7 F 02/27/24 11:50 Pulse 80 02/27/24 11:50 Resp 27 H 02/27/24 11:50 BP 101/65 02/27/24 11:50 Pulse Ox 100 02/27/24 05:46 O2 Del Method Mechanical Ventilation 02/27/24 05:46 FiO2 30 02/27/24 10:00 Neurological:: alert Answers questions:: yes Respiratory:: rhonchi Cardiovascular: RRR Abdomen: soft and nontender Extremities:: deformities (Limb girdle muscle weakness severe due to dystrophy and pt thus bed bound) Tracheostomy:: to ventilator Feeding per:: po Complaints:: none ASSESSMENT & PLAN Assessment: Pt very cooperative and adjusting to his new environment. All questions answered. Weaning off ventilator as per protocol. Plan: treatment and ventilator settings reviewed and continued.
[2024-02-28] VITALS (7 sets, daily range): BP systolic 98–108; BP diastolic 64–69; PULSE 61–83; RESP 14–34; TEMP 36.2–36.6; O2SAT 98–100
--- NOTE | 2024-02-28 13:58 | PC.SS ---
Room visit: This SSD followed up with resident, his mother was at bedside. Resident appears to be upset not willing to engage in [id number]
--- NOTE | 2024-02-28 14:04 | PC.SS ---
Room visit: This SSD followed up with resident, his mother was at bedside. Resident appears to be upset not willing to engage in conversation, this SD informed him DON would go in to speak with him to follow up on his request to move a patient out of their private room to give to him. This SSD will follow up with resident and monitor for changes in mood and behavior.
--- NOTE | 2024-02-28 16:08 | PC.SS ---
Resident seen by Bank Consultant/ Dr. Ellison for routine podiatry services. Resident tolerated treatment well with no new orders or recommendations. Resident to continue current care.
--- NOTE | 2024-02-28 16:24 | PC.SS ---
This SSD sent referral to [facility] per request of resident. He is seeking a private room in any facility, after speaking with DON he has requested referral be sent. This SSD will follow up with facility for any updates and will keep resident updated.
[2024-02-28] MEDS: FERROUS SULFATE 220 MG/5 ML ELIXIR 300 MG PO (20:08)
[2024-02-29] VITALS (8 sets, daily range): BP systolic 102–114; BP diastolic 64–72; PULSE 61–97; RESP 16–37; TEMP 36.2–36.6; O2SAT 98–99
--- NOTE | 2024-02-29 09:46 | PC.SS ---
Room visit:Resident is laying in bed watching a program on phone. He is well groomed with call light properly placed with no signs of distress. Resident said he is feeling better and is getting over his being upset over the private room. Resident said he understands and will remain patient. This SSD will continue to make daily contact with resident and will offer emotional support as he will accept.
[2024-03-01] VITALS (8 sets, daily range): BP systolic 99–106; BP diastolic 62–73; PULSE 73–87; RESP 18–35; TEMP 36.4–36.6; O2SAT 97–99
--- NOTE | 2024-03-01 11:27 | PC.SS ---
Resident seen by Dr. Moura/FLORA for oral exam. Resident tolerated treatment will with no new recommendations. Resident to continue current care and will be seen by CHRISTINS annually and PRN.
--- NOTE | 2024-03-01 17:25 | PD.SAPROG ---
Progress Note - SubAcute DIAGNOSIS (1) Ventilator dependence: Status: Chronic (2) Limb-girdle muscular dystrophy, type 2B: Status: Chronic (3) Tracheostomy in place: Status: Chronic (4) Chronic respiratory failure with hypoxia and hypercapnia: Status: Chronic (5) G tube feedings: Status: Chronic SUBJECTIVE Fever:: none Shortness of Breath:: none Pain:: none OBJECTIVE Most recent vital signs: Last Vital Signs Temp 97.9 F 03/01/24 17:19 Pulse 73 03/01/24 17:19 Resp 34 H 03/01/24 17:19 BP 99/73 03/01/24 17:19 Pulse Ox 99 03/01/24 17:19 O2 Del Method Mechanical Ventilation 03/01/24 17:19 FiO2 30 03/01/24 13:33 Neurological:: alert Answers questions:: yes Respiratory:: rhonchi Cardiovascular: RRR Abdomen: soft and nontender Extremities:: deformities (Limb girdle muscle weakness severe due to dystrophy and pt thus bed bound) Tracheostomy:: to ventilator Feeding per:: po Complaints:: none ASSESSMENT & PLAN Assessment: Pt very cooperative and adjusting to his new environment. All questions answered. Weaning off ventilator as per protocol continued. Plan: treatment and ventilator settings reviewed and continued.
[2024-03-01] MEDS: FERROUS SULFATE 220 MG/5 ML ELIXIR 300 MG PO (20:04)
[2024-03-02] VITALS (7 sets, daily range): BP systolic 101–102; BP diastolic 66–70; PULSE 70–87; RESP 17–34; TEMP 36.2–36.6; O2SAT 98–99
--- NOTE | 2024-03-02 16:28 | PC.SS ---
This SSD followed up with resident regarding his oral exam with DDS/Dr Moura. Resident tolerated exam well, he said Dr. Moura did not say much but did make recommendation for deep cleaning. This SSD will follow up with [facility] for scheduling for deep cleaning. Resident said he is doing ok, said he does feel sad at times due to him missing home. Resident then said he has made friendships in current care and when he was home he missed everyone here. Resident stated he knows he cannot be home because he gets sick and is afraid due to illness. Resident continues to have daily visits from his mother and continues to have support visits from SSD and staff. This SSD will continue to make daily contact with resident and encourage out of room activities.
[2024-03-03] VITALS (8 sets, daily range): BP systolic 99–104; BP diastolic 65–68; PULSE 68–88; RESP 22–38; TEMP 36.2–36.6; O2SAT 98–99
--- NOTE | 2024-03-03 12:16 | PC.SS ---
jejgfopfd mdgfjjgjjfjg fjjgfkjkjd gjkjdfkjg fjfkdjg jrit gjkljgjfjfjkfjkf jfkjkdfjk fjfkjkf
--- NOTE | 2024-03-03 14:37 | PC.SS ---
Room visit: Resident is laying in bed with head of the bed elevated with call light properly placed with no signs of distress. Resident is alert and oriented with clear speech able to make needs known. His mother Olive Galdamez is his decision maker. Resident remains on ventilator with trach in place, he consumes meals and medication orally. Resident will remain in current care and will have all subacute care needs met by staff. This SSD will continue to make daily contact with resident and monitor for changes in mood and behavior.
[2024-03-03] MEDS: IPRATROPIUM/ALBUTEROL 3 ML AMPUL.NEB INH (18:35)
[2024-03-03] MEDS: FERROUS SULFATE 220 MG/5 ML ELIXIR 300 MG PO (21:15)
[2024-03-04] VITALS (8 sets, daily range): BP systolic 103–113; BP diastolic 55–80; PULSE 67–80; RESP 14–38; TEMP 36.2–36.6; O2SAT 96–100
[2024-03-04] MEDS: DEX/HYPRO/GLY ARTIFICAL TEARS 225 DROP/15 ML BTL BOTH EYES (17:30)
[2024-03-05] VITALS (8 sets, daily range): BP systolic 95–125; BP diastolic 62–81; PULSE 71–88; RESP 14–35; TEMP 36.2–36.4; O2SAT 97–100
[2024-03-05] MEDS: FERROUS SULFATE 220 MG/5 ML ELIXIR 300 MG PO (20:32)
--- NOTE | 2024-03-05 21:58 | PD.SAPROG ---
Progress Note - SubAcute DIAGNOSIS (1) Ventilator dependence: Status: Chronic (2) Limb-girdle muscular dystrophy, type 2B: Status: Chronic (3) Tracheostomy in place: Status: Chronic (4) Chronic respiratory failure with hypoxia and hypercapnia: Status: Chronic (5) G tube feedings: Status: Chronic SUBJECTIVE Fever:: none Shortness of Breath:: none Pain:: none OBJECTIVE Most recent vital signs: Last Vital Signs Temp 97.6 F 03/05/24 17:26 Pulse 71 03/05/24 17:26 Resp 28 H 03/05/24 17:26 BP 105/68 03/05/24 17:26 Pulse Ox 99 03/05/24 17:26 O2 Del Method Mechanical Ventilation 03/05/24 17:26 FiO2 30 03/05/24 12:51 Neurological:: alert Answers questions:: yes Respiratory:: rhonchi Cardiovascular: RRR Abdomen: soft and nontender Extremities:: deformities (Limb girdle muscle weakness severe due to dystrophy and pt thus bed bound) Tracheostomy:: to ventilator Feeding per:: po Complaints:: none ASSESSMENT & PLAN Assessment: Pt very cooperative and adjusting to his new environment. All questions answered. Weaning off ventilator as per protocol continued. no success yet. Plan: treatment and ventilator settings reviewed and continued.
[2024-03-06] VITALS: BP 107/73; PULSE 79; RESP 30; TEMP 36.4
[2024-03-06 01:10] VITALS: PULSE 76; RESP 26; O2SAT 98
[2024-03-06 05:38] VITALS: BP 106/73; PULSE 75; RESP 29; TEMP 36.4; O2SAT 99
[2024-03-06 06:57] VITALS: PULSE 75; RESP 15; O2SAT 99
[2024-03-06 12:14] VITALS: PULSE 74; RESP 35; O2SAT 99
[2024-03-06 18:45] VITALS: PULSE 81; RESP 30; O2SAT 99
[2024-03-07] VITALS (8 sets, daily range): BP systolic 97–118; BP diastolic 66–78; PULSE 70–96; RESP 18–34; TEMP 36.1–36.6; O2SAT 98–99
[2024-03-07] MEDS: FERROUS SULFATE 220 MG/5 ML ELIXIR 300 MG PO (20:15)
[2024-03-08] VITALS (9 sets, daily range): BP systolic 106–121; BP diastolic 72–81; PULSE 69–88; RESP 17–33; TEMP 36.2–36.5; O2SAT 98–99
[2024-03-08] MEDS: MAGNESIUM HYDROXIDE 30 ML ORAL SUSP ML PO (01:56)
--- NOTE | 2024-03-08 14:39 | PC.SS ---
Resident is laying in bed with head of the bed elevated with call light properply placed, resident said he is doing well. Resident mother is at bedside in the mornings and does not stay very long. Resident appears to be in no distress. This SSD will continue to follow up with resident and provide emotional support as he will accept.
[2024-03-09] VITALS (8 sets, daily range): BP systolic 101–122; BP diastolic 68–76; PULSE 61–85; RESP 14–35; TEMP 36.3–36.6; O2SAT 97–100
[2024-03-09] MEDS: IPRATROPIUM/ALBUTEROL 3 ML AMPUL.NEB INH (01:45)
--- NOTE | 2024-03-09 06:01 | PC.NURSE ---
[facility] [place] called last night that resident's father was here to see him, currently has no visits from father per resident's request only mother and brother. Scot was notified that his dad was here to see him, asked if he wanted to visit, Scot agreed to see his dad for a short time, no issues noted. Scot stated that he told his dad to message him prior to him coming to visit, call light is within reach.
[2024-03-09] MEDS: DEX/HYPRO/GLY ARTIFICAL TEARS 225 DROP/15 ML BTL BOTH EYES (16:45)
--- NOTE | 2024-03-09 16:51 | PC.NURSE ---
Resident refusing lotion to his feet, ordered BID, RN aware
[2024-03-09] MEDS: FERROUS SULFATE 220 MG/5 ML ELIXIR 300 MG PO (20:31)
--- NOTE | 2024-03-09 21:13 | PD.SAPROG ---
Progress Note - SubAcute DIAGNOSIS (1) Ventilator dependence: Status: Chronic (2) Limb-girdle muscular dystrophy, type 2B: Status: Chronic (3) Tracheostomy in place: Status: Chronic (4) Chronic respiratory failure with hypoxia and hypercapnia: Status: Chronic (5) G tube feedings: Status: Chronic SUBJECTIVE Fever:: none Shortness of Breath:: none Pain:: none OBJECTIVE Most recent vital signs: Last Vital Signs Temp 97.9 F 03/09/24 17:47 Pulse 80 03/09/24 17:47 Resp 14 03/09/24 17:47 BP 120/76 03/09/24 17:47 Pulse Ox 99 03/09/24 17:47 O2 Del Method Mechanical Ventilation 03/09/24 17:47 FiO2 30 03/09/24 12:04 Neurological:: alert Answers questions:: yes Respiratory:: rhonchi Cardiovascular: RRR Abdomen: soft and nontender Extremities:: deformities (Limb girdle muscle weakness severe due to dystrophy and pt thus bed bound) Tracheostomy:: to ventilator Feeding per:: po Complaints:: none ASSESSMENT & PLAN Assessment: Pt very cooperative. Weaning off ventilator as per protocol continued. no success yet. No complaints. PO intake fair. Weight monitoring done. Plan: treatment and ventilator settings reviewed and continued.
[2024-03-10] VITALS (8 sets, daily range): BP systolic 103–117; BP diastolic 67–75; PULSE 69–84; RESP 17–33; TEMP 36.2–36.6; O2SAT 98–99
[2024-03-11 05:44] VITALS: BP 109/73; PULSE 78; RESP 20; TEMP 36.1; O2SAT 98
[2024-03-11 07:05] VITALS: PULSE 74; RESP 22; O2SAT 99
[2024-03-11 12:00] VITALS: BP 101/67; PULSE 76; RESP 31; TEMP 36.2
[2024-03-11 12:15] VITALS: PULSE 79; RESP 32; O2SAT 99
[2024-03-11 17:54] VITALS: BP 107/73; PULSE 94; RESP 32; TEMP 36.6; O2SAT 99
--- NOTE | 2024-03-11 19:58 | PD.SAPROG ---
Progress Note - SubAcute DIAGNOSIS (1) Ventilator dependence: Status: Chronic (2) Limb-girdle muscular dystrophy, type 2B: Status: Chronic (3) Tracheostomy in place: Status: Chronic (4) Chronic respiratory failure with hypoxia and hypercapnia: Status: Chronic (5) G tube feedings: Status: Chronic SUBJECTIVE Fever:: none Shortness of Breath:: none Pain:: none OBJECTIVE Most recent vital signs: Last Vital Signs Temp 97.9 F 03/11/24 17:54 Pulse 94 03/11/24 17:54 Resp 32 H 03/11/24 17:54 BP 107/73 03/11/24 17:54 Pulse Ox 99 03/11/24 17:54 O2 Del Method Mechanical Ventilation 03/11/24 05:44 FiO2 30 03/11/24 12:15 Neurological:: alert Answers questions:: yes Respiratory:: rhonchi Cardiovascular: RRR Abdomen: soft and nontender Extremities:: deformities (Limb girdle muscle weakness severe due to dystrophy and pt thus bed bound) Tracheostomy:: to ventilator Feeding per:: po Complaints:: none ASSESSMENT & PLAN Assessment: Pt very cooperative. Weaning off ventilator as per protocol continued. no success yet. No complaints. PO intake fair. Weight monitoring done. no pain issues. Plan: treatment and ventilator settings reviewed and continued.
[2024-03-11] MEDS: FERROUS SULFATE 220 MG/5 ML ELIXIR 300 MG PO (20:39)
[2024-03-11 20:55] VITALS: PULSE 84; RESP 29; O2SAT 99
[2024-03-12] VITALS (9 sets, daily range): BP systolic 98–111; BP diastolic 62–70; PULSE 71–91; RESP 16–31; TEMP 36.2–36.6; O2SAT 98–99
[2024-03-12 07:53] LABS: Basophils % (Auto) 1 % (0-2.5); Eosinophils # (Auto) 0.2 Thou/mm3 (0.0-0.5); Eosinophils % (Auto) 3 % (0-10); Hematocrit 38.2 % (41.0-53.0); Hemoglobin 12.4 g/dL (13.5-16.0); Immature Granulocytes % (Auto) 0 % (0-0); Immature Granulocytes Auto 0.02 Thou/mm3 (0.00-0.00); Lymphocytes # (Auto) 1.9 Thou/mm3 (1.0-4.8); Lymphocytes % (Auto) 29 % (10-50); Mean Corpuscular HGB Conc 32.5 g/dl (31.0-37.0); Mean Corpuscular Hemoglobin 29.7 pg (25.0-35.0); Mean Corpuscular Volume 91 fL (80-100); Monocytes # (Auto) 0.6 Thou/mm3 (0.0-0.8); Monocytes % (Auto) 10 % (0-12); Neutrophils # (Auto) 3.7 Thou/mm3 (1.8-7.7); Neutrophils % (Auto) 57 % (37-80); Nucleated Red Blood Cell % 0 /100 WBC (0); Platelet Count 277 Thou/mm3 (140-440); RDW Standard Deviation 55.8 fL (35.1-43.9); Red Blood Count 4.18 Miln/mm3 (4.50-5.90); White Blood Count 6.5 Thou/mm3 (3.8-10.6)
[2024-03-12 08:27] LABS: Alanine Aminotransferase 50 U/L (10-49); Albumin, Serum 4.5 gm/dL (3.5-5.0); Albumin/Globulin Ratio 1.9 (1.2-2.2); Alkaline Phosphatase 91 U/L (46-116); Anion Gap 7 (7-16); Aspartate Amino Transferase 25 U/L (0-34); BUN/Creatinine Ratio 45 Ratio (12-20); Bilirubin,Total 0.4 mg/dL (0.3-1.2); Blood Urea Nitrogen 9 mg/dL (9-23); Calcium 10.4 mg/dL (8.3-10.6); Calcium (Corrected) 10.4 mg/dL (8.5-10.1); Chloride 103 mMol/L (98-107); Creatinine (Component) < 0.2 mg/dL (0.6-1.3); Estimated Creatinine Clearance 277.8 mL/min (>60); Globulin 2.4 gm/dL (2.3-3.5); Glucose 84 mg/dL (74-106); Osmolality,Calculated 271 (275-295); Potassium 4.4 mMol/L (3.4-5.1); Sodium 137 mMol/L (136-145); Total Protein 6.9 gm/dL (5.7-8.2); eGFR > 60 See Note
[2024-03-13 00:50] VITALS: PULSE 85; RESP 26; O2SAT 97
--- NOTE | 2024-03-13 01:08 | PC.NURSE ---
During care rounds resident was noted with BM stuck throughout his buttocks hair. CEMENTER MACHINE was noted to be cleaning using wet wash cloths when resident stated you're being too rough. CEMENTER MACHINE apologized and explained that she was not trying to be rough explaining that he had BM stuck in hairs. Resident stated well I don't believe that. CEMENTER MACHINE reassured resident that she was only trying to ensure he was clean with no BM left and reported to this nurse and charge nurse.
[2024-03-13] MEDS: ACETAMINOPHEN 325 MG TABLET 650 MG GT (01:33)
[2024-03-13 05:58] VITALS: BP 101/66; PULSE 66; RESP 20; TEMP 36.2; O2SAT 99
[2024-03-13 06:39] VITALS: PULSE 82; RESP 26; O2SAT 98; O2SAT 99
[2024-03-13 12:00] VITALS: BP 100/69; PULSE 84; RESP 31; TEMP 36.3
[2024-03-13 12:06] VITALS: PULSE 80; RESP 31; O2SAT 99
[2024-03-13 17:13] VITALS: BP 93/66; PULSE 85; RESP 19; TEMP 36.3; O2SAT 98
[2024-03-13] MEDS: FERROUS SULFATE 220 MG/5 ML ELIXIR 300 MG PO (20:46)
[2024-03-14] VITALS: BP 121/83; PULSE 86; RESP 29; TEMP 36.6
--- NOTE | 2024-03-14 04:53 | PC.RT ---
ventilator and circuit change at 04:30 Roberto Rt assisted pt tolerated well.
[2024-03-14 05:59] VITALS: BP 118/76; PULSE 84; RESP 26; TEMP 36.4; O2SAT 98
[2024-03-14 07:04] VITALS: PULSE 82; RESP 18; RESP 32; O2SAT 98
[2024-03-14] MEDS: ACETAMINOPHEN 325 MG TABLET 650 MG GT (08:28)
[2024-03-14 12:23] VITALS: PULSE 70; RESP 32; O2SAT 100
[2024-03-15] VITALS: BP 100/67; PULSE 71; RESP 36; TEMP 36.2
[2024-03-15 07:03] VITALS: PULSE 89; RESP 18; O2SAT 98
[2024-03-15 11:34] VITALS: BP 132/73; PULSE 70; RESP 38; TEMP 36.3
[2024-03-15 13:26] VITALS: PULSE 75; RESP 35; O2SAT 99
--- NOTE | 2024-03-15 14:30 | PD.SAPROG ---
Progress Note - SubAcute DIAGNOSIS (1) Ventilator dependence: Status: Chronic (2) Limb-girdle muscular dystrophy, type 2B: Status: Chronic (3) Tracheostomy in place: Status: Chronic (4) Chronic respiratory failure with hypoxia and hypercapnia: Status: Chronic (5) G tube feedings: Status: Chronic SUBJECTIVE Fever:: none Shortness of Breath:: none Pain:: none OBJECTIVE Most recent vital signs: Last Vital Signs Temp 97.9 F 03/17/24 17:59 Pulse 70 03/17/24 17:59 Resp 28 H 03/17/24 17:59 BP 123/84 03/17/24 17:59 Pulse Ox 99 03/17/24 17:59 O2 Del Method Mechanical Ventilation 03/17/24 17:59 FiO2 30 03/17/24 12:58 Neurological:: alert Answers questions:: yes Respiratory:: rhonchi Cardiovascular: RRR Abdomen: soft and nontender Extremities:: deformities (Limb girdle muscle weakness severe due to dystrophy and pt thus bed bound) Tracheostomy:: to ventilator Feeding per:: po Complaints:: none ASSESSMENT & PLAN Assessment: Pt very cooperative. Weaning off ventilator as per protocol continued. no success yet. No complaints. PO intake fair. Weight monitoring done. no pain issues. Plan: treatment and ventilator settings reviewed and continued.
[2024-03-15 16:51] VITALS: BP 105/70; PULSE 68; RESP 36; TEMP 36.4; O2SAT 98
[2024-03-15 20:05] VITALS: PULSE 89; PULSE 91; RESP 18; O2SAT 98
[2024-03-15] MEDS: FERROUS SULFATE 220 MG/5 ML ELIXIR 300 MG PO (20:42)
[2024-03-16] VITALS: BP 131/89; PULSE 74; RESP 16; TEMP 36.7
[2024-03-16 06:00] VITALS: BP 102/70; PULSE 69; RESP 18; TEMP 36.3; O2SAT 99
[2024-03-16 06:36] VITALS: PULSE 87; RESP 18; RESP 28; O2SAT 98
--- NOTE | 2024-03-16 07:07 | PC.NURSE ---
Addendum entered by Cocnepcion eParl LVN 03/16/24 07:11: charge nurse was notified about patient statement. Original Note: ACADEMIC REGISTRAR notified me that patient had requested the charge nurse or RT for trach suctioning because he stated that I suck and I do not do it right.
[2024-03-16 11:46] VITALS: BP 101/70; PULSE 81; RESP 32; TEMP 36.2
[2024-03-16 17:03] VITALS: BP 109/73; PULSE 73; RESP 33; TEMP 36.4; O2SAT 98
[2024-03-16 18:35] VITALS: PULSE 74; RESP 23; O2SAT 97
--- NOTE | 2024-03-16 21:58 | PC.NURSE ---
Per SPEECH THERAPY TEACHER, SPEECH THERAPY TEACHER asked resident if he was ok, resident stated, Notting is okay, fuck. resident then preceded to ask SPEECH THERAPY TEACHER to reposition him, resident was repositioned, emotional support provided to resident, call light with in reach and HOB elevated.
[2024-03-16] MEDS: MAGNESIUM HYDROXIDE 30 ML ORAL SUSP ML PO (23:08)
[2024-03-17] VITALS (9 sets, daily range): BP systolic 105–131; BP diastolic 68–85; PULSE 69–97; RESP 23–36; TEMP 36.2–36.7; O2SAT 95–100
--- NOTE | 2024-03-17 10:41 | PC.SS ---
Room visit: Resident is laying in bed with head of the bed elevated with call light properly placed with no signs of distress. Resident mother is at bedside, resident said he was tired and did not get much sleep due to him thinking of his visit with his father and his conversation with his brother. Resident stated he accepted a visit from his father and said he felt his father guilted him. He stated he told his brother Tod about this visit and it upset his brother and ruined the visit. Resident said took his frustration out on his mother and made her cry. Resident said he feels better when he talks about his family issues, but he was not feeling like talking this morning as he was trying to get back to sleep for a while. This SSD will follow up with resident at a later time and monitor for changes in mod and behavior and will offer emotional support.
[2024-03-17] MEDS: MAG HYDROX/ALUMINUM HYD/SIMETH 355 ML BTL 30 ML PO (13:07)
[2024-03-17] MEDS: BISACODYL 10 MG SUPP.RECT PR (15:26)
--- NOTE | 2024-03-17 16:24 | PC.SS ---
Room visit: Resident is awake and seen watching program on phone. Resident said he feels better and did sleep some while his mother was here. Resident will continue to be monitored for changes in mood and behavior. This SSD will continue to offer emotional support.
--- NOTE | 2024-03-17 18:31 | PC.NURSE ---
Resident has been command and control systems integrator light excessive times today more than usual. Requesting to be repositioned frequently throughout the shift. All needs met accordingly. Call light within reach.
[2024-03-17] MEDS: FERROUS SULFATE 220 MG/5 ML ELIXIR 300 MG PO (20:27)
[2024-03-17] MEDS: DEX/HYPRO/GLY ARTIFICAL TEARS 225 DROP/15 ML BTL BOTH EYES (23:47)
[2024-03-18] VITALS (7 sets, daily range): BP systolic 99–120; BP diastolic 62–81; PULSE 64–79; RESP 15–35; TEMP 36.1–36.4; O2SAT 97–99
[2024-03-18] MEDS: ACETAMINOPHEN 325 MG TABLET 650 MG GT ×2 (00:17→07:07)
[2024-03-19] VITALS (8 sets, daily range): BP systolic 105–127; BP diastolic 65–84; PULSE 73–91; RESP 22–43; TEMP 36.3–36.5; O2SAT 96–99
--- NOTE | 2024-03-19 18:36 | PD.SAPROG ---
Progress Note - SubAcute DIAGNOSIS (1) Ventilator dependence: Status: Chronic (2) Limb-girdle muscular dystrophy, type 2B: Status: Chronic (3) Tracheostomy in place: Status: Chronic (4) Chronic respiratory failure with hypoxia and hypercapnia: Status: Chronic (5) G tube feedings: Status: Chronic SUBJECTIVE Fever:: none Shortness of Breath:: none Pain:: none OBJECTIVE Most recent vital signs: Last Vital Signs Temp 97.7 F 03/19/24 18:00 Pulse 80 03/19/24 18:00 Resp 36 H 03/19/24 18:00 BP 119/77 03/19/24 18:00 Pulse Ox 99 03/19/24 18:00 O2 Del Method Mechanical Ventilation 03/19/24 18:00 FiO2 30 03/19/24 13:34 Neurological:: alert Answers questions:: yes Respiratory:: rhonchi Cardiovascular: RRR Abdomen: soft and nontender Extremities:: deformities (Limb girdle muscle weakness severe due to dystrophy and pt thus bed bound) Tracheostomy:: to ventilator Feeding per:: po Complaints:: none ASSESSMENT & PLAN Assessment: Pt very cooperative. Weaning off ventilator as per protocol continued. no success yet. No complaints. PO intake fair. Weight monitoring done. no pain issues. Pt comfortable and content Plan: treatment and ventilator settings reviewed and continued.
[2024-03-19] MEDS: FERROUS SULFATE 220 MG/5 ML ELIXIR 300 MG PO (20:29)
[2024-03-20] VITALS (8 sets, daily range): BP systolic 104–116; BP diastolic 71–79; PULSE 73–87; RESP 15–39; TEMP 36.3–36.6; O2SAT 97–100
--- NOTE | 2024-03-20 01:16 | PC.NURSE ---
Resident noted with frequent use of call light tonight with each call requesting to be wiped for BM and repositioned, when informed of no noted BM, resident insist on wiping just in case . Resident stating I feel like I poop every time, like I feel it there. Resident noted with daily BM's small to medium in size, soft and formed. BS active x4, abdomen RSNT. New order to restart Miralax in am as he had previously been receiving, however was noted to consistently refuse. resident aware of new order.
--- NOTE | 2024-03-20 15:47 | PC.SS ---
Resident mother has brought in resident play station and 1 remote controller from home, white console with white controller. This SSD labeled the game console and controller and has added it to inventory. Resident has asked to leave game console in activity room for him to use when in there.
--- NOTE | 2024-03-20 16:10 | PC.SS ---
Resident seen in activities room playing game console, resident appears to be enjoying his time in activities room. Resident went via bed, he is well groomed and in good spirits. This SSD continues to meet with [facility] and offer support.
[2024-03-21] VITALS (8 sets, daily range): BP systolic 110–112; BP diastolic 73–80; PULSE 74–91; RESP 16–38; TEMP 36.2–36.5; O2SAT 98–99
--- NOTE | 2024-03-21 12:16 | PC.SS ---
Room visit: During room visit, resident mother Zeynep was at bedside. Resident is in good spirits engaging in conversation and seen smiling. Resident said he will be attending activities today and would like to attend once in the morning and once in the afternoon. This SSD informed dental insurance coordinator. Resident had a request, he asked if his cousin can come in to facility and give him a tattoo on his L) hand. He stated his cousin is a exhibit artist and would like to tattoo a memorial of his late sister. This SSD informed him this question would be delivered to [facility]ON[facility] and for their response. This SSD informed resident there would be a follow up with him regarding his request.
[2024-03-21] MEDS: polyethylene glycoL PKT 17 GM POWD.PACK PO (15:26)
[2024-03-21] MEDS: FERROUS SULFATE 220 MG/5 ML ELIXIR 300 MG PO (20:58)
[2024-03-22] VITALS (8 sets, daily range): BP systolic 109–133; BP diastolic 74–88; PULSE 77–102; RESP 14–37; TEMP 36.4–36.7; O2SAT 96–100
[2024-03-23] VITALS (8 sets, daily range): BP systolic 94–109; BP diastolic 63–72; PULSE 75–96; RESP 26–38; TEMP 36.2–36.6; O2SAT 96–100
--- NOTE | 2024-03-23 06:40 | PC.NURSE ---
RESIDENT EXPRESSED HIS THOUGHTS OF WANTING TO HARM SELF IF HE WAS ABLE TO AT TIMES. RESIDENT DOES NOT HAVE A PLAN. RESIDENT STATES THINGS ARE OUT OF HIS CONTROL, HAVE NOT BEEN SLEEPING WELL, AND FEEL A LOT THINGS IS GOING ON. RESIDENT REASSURED STAFF IS HERE FOR SUPPORT. SAFE ENVIRONMENT PROVIDED AND CONTINUE TO MONITOR.
--- NOTE | 2024-03-23 14:53 | PC.SS ---
This SSD informed by second shift supervisor RN resident made comments about feeling hopeless. This SSD went to resident bedside and spent some time talking with resident about his feelings of despair. Resident stated he is not getting enough sleep says he stays up at night thinking and cannot shut off his thoughts he also stated he does not like to be alone and currently feels lonely at times. It has been challenging for him to accept his illness, he states he wishes he could be off ventilator. Resident said he has been feeling sad for a while but was advised by his mother not to talk about it. Resident said he feels weak minded for having these feelings. This SSD assured him he is not weak minded and it was ok to express his feeling freely and openly. Resident said he would not harm himself but sometimes feels down due to home like environment and family issues that he cannot let go. Resident stated he wishes he can go home but fears he will get sick and end up in hospital again. Resident currently participates in out of room activities, his mother brought in his game console from home which he enjoys playing. Resident said when he is in activities playing his game he feels better because he is having fun not thinking about his worries. This SSD will continue to make daily contact with resident and offer emotional support and will continue to monitor for changes in mood and behavior. Resident says he prays but does not wish to have electronics maintenance technician come in for spiritual care visits.
--- NOTE | 2024-03-23 20:16 | PD.SAPROG ---
Progress Note - SubAcute DIAGNOSIS (1) Ventilator dependence: Status: Chronic (2) Limb-girdle muscular dystrophy, type 2B: Status: Chronic (3) Tracheostomy in place: Status: Chronic (4) Chronic respiratory failure with hypoxia and hypercapnia: Status: Chronic (5) G tube feedings: Status: Chronic SUBJECTIVE Fever:: none Shortness of Breath:: none Pain:: none OBJECTIVE Most recent vital signs: Last Vital Signs Temp 98 F 03/23/24 17:42 Pulse 82 03/23/24 17:42 Resp 38 H 03/23/24 17:42 BP 109/72 03/23/24 17:42 Pulse Ox 99 03/23/24 17:42 O2 Del Method Mechanical Ventilation 03/23/24 17:42 FiO2 30 03/23/24 13:09 Neurological:: alert Answers questions:: yes Respiratory:: rhonchi Cardiovascular: RRR Abdomen: soft and nontender Extremities:: deformities (Limb girdle muscle weakness severe due to dystrophy and pt thus bed bound) Tracheostomy:: to ventilator Feeding per:: po Complaints:: none ASSESSMENT & PLAN Assessment: Pt very cooperative. Weaning off ventilator as per protocol continued. no success yet. No complaints. PO intake fair. Weight monitoring done. no pain issues. Pt comfortable and content. Remains active Plan: treatment and ventilator settings reviewed and continued.
[2024-03-23] MEDS: FERROUS SULFATE 220 MG/5 ML ELIXIR 300 MG PO (20:57)
[2024-03-23] MEDS: MAGNESIUM HYDROXIDE 30 ML ORAL SUSP ML PO (20:58)
[2024-03-24] VITALS (9 sets, daily range): BP systolic 104–123; BP diastolic 64–85; PULSE 68–98; RESP 14–40; TEMP 36.3–36.7; O2SAT 49–976
--- NOTE | 2024-03-24 13:45 | PC.SS ---
This SSD followed up with resident, he is seen laying in bed said he is waiting to go to activities. Resident said he is having a good day and said he feels a lot better from yesterdays conversation. Resident said he felt good talking about his worries and letting it out. Resident will continue to receive daily room visits and will be monitored for changes in mood and behavior.
--- NOTE | 2024-03-24 18:28 | PC.NURSE ---
At 0930 When FLAVOR ROOM WORKER entered room to answer call light Scot requested he wanted to go to activities this morning. FLAVOR ROOM WORKER informed him he was scheduled to attend activities in the afternoon ([phone]) and they already have other residents scheduled for morning activities ([phone]). Scot became upset and stated. Don't lie to me. You just don't want me to go. I'm going to talk to Luz (social worker clinical). FLAVOR ROOM WORKER reported to this script writer and nurse went to speak with Luz regarding incident. Nurse also went to speak with yard coordinator Adamaris and informed her. She stated It's ok I have room he can attend. When this nurse went to inform Scot he can attend morning activities he stated I don't want to go anymore. I'm going to stay in my room and wait for the afternoon When FLAVOR ROOM WORKER and nurse went to change and reposition other residents and returned to Scot's room he stated I changed my mind and want to go to activities this morning but need to be changed and repositioned . Scot was assisted to activities via bed with ventilator without any issues. Charge nurse was informed of incident. No further issues throughout this shift.
[2024-03-25] VITALS (8 sets, daily range): BP systolic 89–115; BP diastolic 65–82; PULSE 69–91; RESP 14–36; TEMP 36.3–37.1; O2SAT 97–99
[2024-03-25] MEDS: FERROUS SULFATE 220 MG/5 ML ELIXIR 300 MG PO (20:35)
[2024-03-26] VITALS (7 sets, daily range): BP systolic 110–117; BP diastolic 75–76; PULSE 68–89; RESP 14–39; TEMP 36.4–37.2; O2SAT 98–100
[2024-03-27] VITALS (8 sets, daily range): BP systolic 100–111; BP diastolic 63–76; PULSE 66–88; RESP 20–39; TEMP 36.2–37.1; O2SAT 99–100
[2024-03-27] MEDS: MAGNESIUM HYDROXIDE 30 ML ORAL SUSP ML PO (13:35)
[2024-03-27] MEDS: FERROUS SULFATE 220 MG/5 ML ELIXIR 300 MG PO (21:03)
--- NOTE | 2024-03-27 21:26 | PD.SAPROG ---
Progress Note - SubAcute DIAGNOSIS (1) Ventilator dependence: Status: Chronic (2) Limb-girdle muscular dystrophy, type 2B: Status: Chronic (3) Tracheostomy in place: Status: Chronic (4) Chronic respiratory failure with hypoxia and hypercapnia: Status: Chronic (5) G tube feedings: Status: Chronic SUBJECTIVE Fever:: none Shortness of Breath:: none Pain:: none OBJECTIVE Most recent vital signs: Last Vital Signs Temp 98.0 F 03/27/24 17:34 Pulse 66 03/27/24 17:34 Resp 26 H 03/27/24 17:34 BP 100/66 03/27/24 17:34 Pulse Ox 100 03/27/24 17:34 O2 Del Method Mechanical Ventilation 03/27/24 17:34 FiO2 30 03/27/24 13:15 Neurological:: alert Answers questions:: yes Respiratory:: rhonchi Cardiovascular: RRR Abdomen: soft and nontender Extremities:: deformities (Limb girdle muscle weakness severe due to dystrophy and pt thus bed bound) Tracheostomy:: to ventilator Feeding per:: po Complaints:: none ASSESSMENT & PLAN Assessment: Pt very cooperative. Weaning off ventilator as per protocol continued. no success yet. No complaints. PO intake fair. Weight monitoring done. no pain issues. Pt comfortable and content. Remains active Plan: treatment and ventilator settings reviewed and continued.
[2024-03-28] VITALS (8 sets, daily range): BP systolic 100–107; BP diastolic 66–69; PULSE 61–98; RESP 14–40; TEMP 36.1–36.7; O2SAT 99–100; BMI 13.8
[2024-03-28] MEDS: polyethylene glycoL PKT 17 GM POWD.PACK PO (08:03)
--- NOTE | 2024-03-28 16:04 | PC.SS ---
resident is seen in activities room via bed playing video games. Resident said he is happy and enjoys going to activities daily and stays longer. Staff mentioned resident said he has something to look forward to. Resident is seen smiling and social, this SSD will continue to make daily contact with resident and monitor for changes in mood and behavior.
[2024-03-28] MEDS: ACETAMINOPHEN 325 MG TABLET 650 MG GT (20:45)
[2024-03-29] VITALS (7 sets, daily range): BP systolic 101–109; BP diastolic 66–69; PULSE 62–86; RESP 14–38; TEMP 36.1–36.6; O2SAT 99–100
--- NOTE | 2024-03-29 06:16 | PC.NURSE ---
Patient refused. Informed Charge Nurse PAULETTE Iglesias.
--- NOTE | 2024-03-29 07:07 | PC.NURSE ---
patient stated he did not want do vitals and refused, due to not being changed promptly, patient stated that he was not positioned right away when call light was pushed. Patient stated, you need better time management, you must not be used to people advocating for themselves and talking. When called for repositioning, I told patient he is a two person and I will inform my nurse or TELECOMMUNICATION EQUIPMENT REPAIRER, patient asked if I could do it myself, I told him No. The TELECOMMUNICATION EQUIPMENT REPAIRER stepped out of the room to get partner TELECOMMUNICATION EQUIPMENT REPAIRER to change patient. TELECOMMUNICATION EQUIPMENT REPAIRER Made APPLICATION PROCESSOR, and Charge Nurse aware.
--- NOTE | 2024-03-29 13:42 | PC.SS ---
Resident stated he would like to attend activities at night when he cannot sleep. DON made aware of this by night charge nurse, JONATHAN stated resident can go to activities at night and can be monitored by staff sitting in the xiong near activity room. resident mother at bedside during conversation with resident. He is in good spirits, he is attending activities, eating meals there and is seen socializing with staff.
--- NOTE | 2024-03-29 15:03 | PC.NURSE ---
Patient refused 0900 miralax. Asked a couple times if patient still wanted to take Miralax, but still refuses. Educated patient about being constipated. Patient had small firm BM's during shift. Kept patient comfortable at all times. Call light within reach.
[2024-03-29] MEDS: ACETAMINOPHEN 325 MG TABLET 650 MG GT (20:56)
[2024-03-29] MEDS: FERROUS SULFATE 220 MG/5 ML ELIXIR 300 MG PO (20:56)
[2024-03-30] VITALS (7 sets, daily range): BP systolic 103–118; BP diastolic 61–79; PULSE 71–79; RESP 14–34; TEMP 36.2–37.1; O2SAT 98–99
--- NOTE | 2024-03-30 05:13 | PC.NURSE ---
patient had zero output, informed BROADCAST SYSTEMS ENGINEER and Charge Nurse
--- NOTE | 2024-03-30 06:00 | PC.NURSE ---
RESIDENT HAS NOT VOIDED THROUGH THE SHIFT. RESIDENT ALERT, ORIENTED. WHEN INFORMED HE HAS NOT VOIDED AT ALL TONIGH, HE STATED HE DOES NOT FEEL LIKE IT. OFFERED BLADDER SCAN BUT REFUSED AT THIS TIME. PAULETTE SUN AND ROSELYN VIVAR AT BEDSIDE.
[2024-03-30] MEDS: polyethylene glycoL PKT 17 GM POWD.PACK PO (08:47)
[2024-03-30] MEDS: MELATONIN 3 MG TABLET GT (21:30)
[2024-03-30] MEDS: ACETAMINOPHEN 325 MG TABLET 650 MG GT (21:30)
--- NOTE | 2024-03-30 22:00 | PC.NURSE ---
Resident declined 2100 activities at this time
[2024-03-31] VITALS (8 sets, daily range): BP systolic 94–115; BP diastolic 61–78; PULSE 68–82; RESP 14–34; TEMP 36.3–36.6; O2SAT 97–100
--- NOTE | 2024-03-31 15:02 | PC.SS ---
Room visit: Resident mother is his decision maker, resident has clear speech able to make needs known. Resident is laying in bed with head of the bed elevated with call light properly placed with no signs of distress. Resident remains on vent with trach in place. Resident has no changes in care or condition he will remain in current care as he is unable to return home due to heavy and complicated care regimen. All subacute care needs to be met in facility by staff.
--- NOTE | 2024-03-31 15:07 | PC.SS ---
Resident is laying in bed in good spirits he said his father will be here this afternoon for a visit. He said he feels 50/50 about the visit, this SSD offered him emotional support and offered suggestions to make the visit more enjoyable and less uncomfortable for both. Resident was grateful for suggestions and said thank you for the advice Resident said he was going to activities today and said he enjoys attending.
[2024-03-31] MEDS: IBUPROFEN 100 MG/5 ML ORAL.SUSP 400 MG PO (20:30)
--- NOTE | 2024-03-31 21:00 | PC.NURSE ---
Resident did not want to go to activities tonight. Resident stated he is tired tonight. Offered resident to let staff know if he changes his mind.
--- NOTE | 2024-03-31 21:20 | PC.NURSE ---
Resident declined 2100 activities at this time
[2024-03-31] MEDS: FERROUS SULFATE 220 MG/5 ML ELIXIR 300 MG PO (21:22)
[2024-03-31] MEDS: MELATONIN 3 MG TABLET GT (21:24)
--- NOTE | 2024-03-31 21:31 | PD.SAPROG ---
Progress Note - SubAcute DIAGNOSIS (1) Ventilator dependence: Status: Chronic (2) Limb-girdle muscular dystrophy, type 2B: Status: Chronic (3) Tracheostomy in place: Status: Chronic (4) Chronic respiratory failure with hypoxia and hypercapnia: Status: Chronic (5) G tube feedings: Status: Chronic SUBJECTIVE Fever:: none Shortness of Breath:: none Pain:: none OBJECTIVE Most recent vital signs: Last Vital Signs Temp 97.8 F 03/31/24 17:13 Pulse 82 03/31/24 18:48 Resp 34 H 03/31/24 18:48 BP 115/71 03/31/24 17:13 Pulse Ox 97 03/31/24 18:48 O2 Del Method Mechanical Ventilation 03/31/24 12:00 FiO2 30 03/31/24 18:48 Neurological:: alert Answers questions:: yes Respiratory:: rhonchi Cardiovascular: RRR Abdomen: soft and nontender Extremities:: deformities (Limb girdle muscle weakness severe due to dystrophy and pt thus bed bound) Tracheostomy:: to ventilator Feeding per:: po Complaints:: none ASSESSMENT & PLAN Assessment: Pt very cooperative. Weaning off ventilator as per protocol continued. no success yet. No complaints. PO intake fair. Weight monitoring done. no pain issues. Pt comfortable and content. Remains active. VSS Plan: treatment and ventilator settings reviewed and continued.
[2024-04-01] VITALS (8 sets, daily range): BP systolic 99–124; BP diastolic 66–77; PULSE 57–81; RESP 26–34; TEMP 36.1–36.8; O2SAT 95–100
--- NOTE | 2024-04-01 21:21 | PC.NURSE ---
Resident comfortable at this time, declined 2100 activities
[2024-04-01] MEDS: MELATONIN 3 MG TABLET GT (21:30)
[2024-04-01] MEDS: ACETAMINOPHEN 325 MG TABLET 650 MG GT (21:33)
[2024-04-02] VITALS (8 sets, daily range): BP systolic 104–138; BP diastolic 63–95; PULSE 66–98; RESP 14–34; TEMP 36.2–36.8; O2SAT 98–99
[2024-04-02] MEDS: MAGNESIUM HYDROXIDE 30 ML ORAL SUSP ML PO (08:45)
[2024-04-02] MEDS: ACETAMINOPHEN 325 MG TABLET 650 MG GT ×2 (11:00→19:20)
[2024-04-02] MEDS: SODIUM PHOSPHATE,MONO-DIBASIC 133 ML ENEMA PR (17:00)
--- NOTE | 2024-04-02 18:57 | PC.NURSE ---
1610-Resident c/o lower abdominal pain, stated I feel like I have to pee but can't. Adaptive Physical Education Specialist assessed resident and noted abdomen was firm and distended. Bladder scan performed and 600ml urine was visualized. In & out catheter was attempted x2 and unsuccessful. Warm towel and blanket placed on lower abdomen to stimulate bladder. Resident also stated he felt like he needed to have a bowel movement but could not and requested an Enema. Enema was administered with positive results. At 1745 RN from ED at bedside and attempted to insert 16F garcia catheter and was unsuccessful. Per powertrain control systems engineer, ED staff will return to reattempt insertion of Coude garcia catheter. At 1830 2nd bladder scan performed and 707ml of urine was visualized. Resident awake with family at bedside, call light within reach, no s/s of distress noted. RN notified. Endorsed to oncoming shift.
[2024-04-02] MEDS: FERROUS SULFATE 220 MG/5 ML ELIXIR 300 MG PO (20:31)
--- NOTE | 2024-04-02 20:58 | PC.NURSE ---
Received in report that resident has had difficulty urinating during the day, multiple attempts to insert garcia catheter by nurses here and ER nurse. At approximately 2000 ER nurse Yancy here to insert Coude catheter with difficulty assisted by staff. After multiple attempts Coude catheter was inserted with small blood clots and 600 ml of urine returned. Notified Dr Velasquez with new order to continue garcia for 3 days r/t possible swelling from trauma of inserting catheter and monitor Intake and Output, new order for Ibuprofen for pain and swelling and consult Urologist Dr Montanez for difficulty urinating. Mother is at bedside and patient informed, call light is within reach.
[2024-04-03] VITALS (8 sets, daily range): BP systolic 95–107; BP diastolic 54–70; PULSE 75–85; RESP 21–35; TEMP 36.3–36.4; O2SAT 97–100
[2024-04-03] MEDS: IBUPROFEN 100 MG/5 ML ORAL.SUSP 400 MG PO ×2 (03:00→13:07)
[2024-04-03] MEDS: polyethylene glycoL PKT 17 GM POWD.PACK PO (08:32)
--- NOTE | 2024-04-03 13:07 | PC.SS ---
This SSD received call from resident MARILEE Galdamez, resident mother. She asked to have POA established, this SSD informed her this is a service that can be provided at resident bedside by this SSD. This SSD informed Olive POA is not the same as conservatorship and informed her the difference between the two. This SSD will call diana to ask for appointment for POA. Olive aware of process. This SSD will update Olive with appointment date from [facility].
--- NOTE | 2024-04-03 13:11 | PC.SS ---
Room visit: Resident was laying in bed appeared tired. Resident said he had a bad afternoon on Wednesday said he was uncomfortable and in pain. Resident said he went to activities once yesterday and said he was not doing so well. Resident said he was going to try to get some rest, this SSD agreed to follow up with him later in the day.
--- NOTE | 2024-04-03 16:21 | PC.SS ---
This SSD went to follow up with resident, he was sound asleep. This SSD will try again tomorrow.
[2024-04-03] MEDS: ACETAMINOPHEN 325 MG TABLET 650 MG GT (17:26)
[2024-04-03] MEDS: DEX/HYPRO/GLY ARTIFICAL TEARS 225 DROP/15 ML BTL BOTH EYES (20:15)
[2024-04-03] MEDS: MELATONIN 3 MG TABLET GT (20:18)
[2024-04-04] VITALS (7 sets, daily range): BP systolic 96–122; BP diastolic 61–87; PULSE 71–91; RESP 14–39; TEMP 36.3–36.7; O2SAT 93–99
--- NOTE | 2024-04-04 04:28 | PC.NURSE ---
Was called into room by CNAs, coude catheter was custodial out, attempted to push catheter in further, patient stated it hurt, attempted to irrigate garcia, sterile water leaking out, garcia was removed due to not being in place. Small amount of blood noted with removal to urethral opening. Resident was able to void x1 after garcia removed. Resident states he has some pain when attempting to urinate and feels sore. Bladder scan done with no urine found in the bladder. Another bladder scan done with 67 ml of urine noted. Explained to resident importance of notifying staff if inability to urinate or painful urination, resident stated he understood, call light is within reach.
--- NOTE | 2024-04-04 06:27 | PC.NURSE ---
2049-LICENSED ACUPUNCTURIST summoned this nurse and charge nurse to resident room. upon walking into room, Avendaño cath noted to be dislodged, 100mL yellow urine noted in bag, abd. non-distended, bladder scan noted 0 mL, no s/s of distress at this time, HOB elevated, call light within reach. 0300-resident urinated a small amount of yellow urine in brief, bladder scan performed and noted 76mL of urine, abd. continues to be non-distended, no complained of discomfort. 0535-Resident voided a small amount of yellow urine in brief, bladder scan performed and noted at 106mL of urine, no s/s of distress, abd. non-distended, water encourage trough out the night, resident only had 240mL of fluids, resident in room sleeping with eyes closed, call light within reach, pending consult with urologist.
[2024-04-04] MEDS: polyethylene glycoL PKT 17 GM POWD.PACK PO (08:39)
[2024-04-04] MEDS: IBUPROFEN 100 MG/5 ML ORAL.SUSP 400 MG PO ×2 (08:42→20:26)
--- NOTE | 2024-04-04 11:43 | PD.SAPROG ---
Progress Note - SubAcute DIAGNOSIS (1) Ventilator dependence: Status: Chronic (2) Limb-girdle muscular dystrophy, type 2B: Status: Chronic (3) Tracheostomy in place: Status: Chronic (4) Chronic respiratory failure with hypoxia and hypercapnia: Status: Chronic (5) G tube feedings: Status: Chronic SUBJECTIVE Fever:: none Shortness of Breath:: none Pain:: none OBJECTIVE Most recent vital signs: Last Vital Signs Temp 97.7 F 04/04/24 06:00 Pulse 74 04/04/24 06:38 Resp 14 04/04/24 06:38 BP 104/65 04/04/24 06:00 Pulse Ox 93 L 04/04/24 06:38 O2 Del Method Mechanical Ventilation 04/04/24 06:00 FiO2 30 04/04/24 06:38 Neurological:: alert Answers questions:: yes Respiratory:: rhonchi Cardiovascular: RRR Abdomen: soft and nontender Extremities:: deformities (Limb girdle muscle weakness severe due to dystrophy and pt thus bed bound) Tracheostomy:: to ventilator Feeding per:: po Complaints:: none ASSESSMENT & PLAN Assessment: Pt very cooperative. Weaning off ventilator as per protocol continued. no success yet. No complaints. PO intake fair. Weight monitoring done. no pain issues. Pt comfortable and content. Remains active. Pt had urinary retention confirmed with Ultra sound a few days ago and had a catheter placed successfully and bladder training initiated. VSS Plan: treatment and ventilator settings reviewed and continued.
--- NOTE | 2024-04-04 13:22 | PC.NURSE ---
Spoke with resident on morning rounds regarding incidence of reduced urine output. Encouraged to increase fluid intake and report any symptoms of discomfort or abdominal pain to caregivers. Spoke with Vanessa LEDEZMA and CURED MEATS SUPERVISOR's doing rounds, Bri about concern regarding urinary status and agreed to monitor with increased vital signs to at least every four hours for temp and HR. Resident did agree to axillary and/or scanned temp. Refuses rectal temps.
--- NOTE | 2024-04-04 13:43 | PC.NURSE ---
Resident took entire contents of box cranberry juice; states he 'likes cranberry . Informed Vanessa of the oral fluid intake.
[2024-04-04] MEDS: SODIUM PHOSPHATE,MONO-DIBASIC 133 ML ENEMA PR (16:50)
[2024-04-04] MEDS: ACETAMINOPHEN 325 MG TABLET 650 MG GT (17:39)
[2024-04-04 22:54] LABS: COVID-19 Antigen (In-House) Negative (Negative); Influenza A Ag Negative; Influenza B Ag Negative
[2024-04-04 22:57] LABS: Basophils % (Auto) 0 % (0-2.5); Eosinophils % (Auto) 0 % (0-10); Hemoglobin 13.3 g/dL (13.5-16.0); Immature Granulocytes % (Auto) 0 % (0-0); Immature Granulocytes Auto 0.04 Thou/mm3 (0.00-0.00); Lymphocytes # (Auto) 0.4 Thou/mm3 (1.0-4.8); Lymphocytes % (Auto) 4 % (10-50); Mean Corpuscular HGB Conc 34.1 g/dl (31.0-37.0); Mean Corpuscular Hemoglobin 30.9 pg (25.0-35.0); Mean Corpuscular Volume 91 fL (80-100); Monocytes # (Auto) 0.4 Thou/mm3 (0.0-0.8); Monocytes % (Auto) 4 % (0-12); Neutrophils # (Auto) 9.6 Thou/mm3 (1.8-7.7); Neutrophils % (Auto) 92 % (37-80); Nucleated Red Blood Cell % 0 /100 WBC (0); Platelet Count 233 Thou/mm3 (140-440); Red Blood Count 4.31 Miln/mm3 (4.50-5.90); White Blood Count 10.5 Thou/mm3 (3.8-10.6)
[2024-04-04 23:07] LABS: Procalcitonin 0.39 ng/ml (0.0-0.49)
[2024-04-04] MEDS: CIPROFLOXACIN HCL 500 MG TABLET PO (23:45)
[2024-04-05] VITALS (7 sets, daily range): BP systolic 99–107; BP diastolic 64–73; PULSE 74–109; RESP 15–39; TEMP 36.4–37.3; O2SAT 96–99
--- NOTE | 2024-04-05 01:19 | PC.NURSE ---
Resident having elevated temps, states he doesn't feel good, body is achy, c/o feeling cold. Notified Dr Velasquez with new order to start temp protocol due to issues of urinary retention and difficulty with catheter insertion. Covid, Flu and blood obtained, attempted to but unable to collect sputum at this time. Resident states he was unable to void at this time and due to difficulty with previous catheter insertion and soreness, condom catheter with leg bag was placed for urine sample. Notified Dr Velasquez of lab results, new order to start Cipro 500mg PGT BID x 5 days until C/S comes back.
[2024-04-05 01:22] LABS: Collection Type, Urine Clean Catch
[2024-04-05 02:13] LABS: Bacteria,Urine 4+; Bilirubin,Urine 1+ (Negative); Blood,Urine 1+ (Negative); Budding Yeast,Urine Present; Calcium Oxalate Crystals,Urine 4+; Clarity,Urine Turbid (Clear/Hazy); Color,Urine Drk-Yellow (Lt Yel-Yel); Glucose, Urine Negative (Negative); Ketones,Urine 1+ (Negative); Leukocyte Esterase,Urine Positive (Negative); Nitrite,Urine Negative (Negative); PH,Urine 5.5 (5.0-7.0); Protein,Urine Trace (Neg - Trace); RBC,Urine 103 /hpf (0-3); Specific Gravity,Urine 1.026 (1.001-1.035); Squamous Epithelial Cell,Urine 5 /hpf (0-5); WBC,Urine 158 /hpf (0-5)
[2024-04-05] MEDS: CIPROFLOXACIN HCL 500 MG TABLET PO ×2 (08:36→20:25)
[2024-04-05] MEDS: IBUPROFEN 100 MG/5 ML ORAL.SUSP 400 MG PO (20:20)
[2024-04-05] MEDS: MELATONIN 3 MG TABLET GT (20:25)
--- NOTE | 2024-04-05 21:38 | PC.NURSE ---
made aware of resident request for IBU,previous order for IBU was only for 3 day, new order received for an additional 2 days for IBU 400mg via PO [id number] prn for pain, resident in room resting, call light within reach, no s/s of distress at this time.
[2024-04-06] VITALS: BP 90/59; PULSE 74; RESP 32; TEMP 36.6
[2024-04-06 01:15] VITALS: RESP 14
[2024-04-06 05:45] VITALS: PULSE 80; RESP 23; O2SAT 99
[2024-04-06 06:00] VITALS: BP 92/51; PULSE 73; RESP 23; TEMP 36.2; O2SAT 96
[2024-04-06] MEDS: polyethylene glycoL PKT 17 GM POWD.PACK PO (08:54)
[2024-04-06] MEDS: CIPROFLOXACIN HCL 500 MG TABLET PO ×2 (08:54→20:24)
[2024-04-06 17:14] VITALS: PULSE 78; RESP 25; O2SAT 98
[2024-04-06 19:15] VITALS: PULSE 83; RESP 30; O2SAT 98
[2024-04-06] MEDS: MELATONIN 3 MG TABLET GT (20:20)
[2024-04-06] MEDS: FERROUS SULFATE 220 MG/5 ML ELIXIR 300 MG PO (20:23)
[2024-04-07] VITALS: BP 100/64; PULSE 73; RESP 29; TEMP 36.8
[2024-04-07 01:20] VITALS: PULSE 79; RESP 36; O2SAT 99
[2024-04-07 06:00] VITALS: BP 101/68; PULSE 65; RESP 27; TEMP 36.9; O2SAT 99
[2024-04-07 06:10] VITALS: PULSE 64; RESP 17; O2SAT 96
[2024-04-07] MEDS: polyethylene glycoL PKT 17 GM POWD.PACK PO (08:38)
[2024-04-07] MEDS: CIPROFLOXACIN HCL 500 MG TABLET PO ×2 (08:38→20:54)
[2024-04-07 12:32] VITALS: PULSE 77; RESP 35; O2SAT 100
--- NOTE | 2024-04-07 15:35 | PC.SS ---
Room Visit: Resident remains in current care with no changes in care or condition. Remains on vent with trach in place and GT for medication and nutrition. Resident is alert and oriented able to make needs known, resident is represented by his mother. Resident will remain in current care and will continue to have all subacute care needs met by staff. No changes in mood and behavior.
--- NOTE | 2024-04-07 15:43 | PC.SS ---
This SSD spoke with resident and mother at bedside. Resident said he is feeling better and said he will start going out to activities as he has not been going. Resident is well groomed and looks to be in good spirits. No questions or concerns from resident. Mother asked if his personal w/chair from home can be stored in facility, this SSD asked if he would be using it, mother said no he does not like it. This SSD informed her we would not be able to store w/chair as we do not have a storage room. Resident prefers to stay in bed at all times.
--- NOTE | 2024-04-07 16:37 | PC.NURSE ---
Resident continues to receive ABX Ciprofloxacin 500 mg Bid PO for Klebsilla Pneumoniae in urine culture/ UTI. Vital signs within normal parameters. No adverse reactions notice from ABX. Will continue to monitor. Call light within reach.
[2024-04-07 18:21] VITALS: PULSE 84; RESP 28; RESP 29; O2SAT 100
[2024-04-07] MEDS: MELATONIN 3 MG TABLET GT (20:55)
[2024-04-08] VITALS (8 sets, daily range): BP systolic 96–110; BP diastolic 60–73; PULSE 66–86; RESP 14–35; TEMP 36.6–37; O2SAT 99–100
[2024-04-08] MEDS: ACETAMINOPHEN 325 MG TABLET 650 MG GT (01:27)
[2024-04-08] MEDS: polyethylene glycoL PKT 17 GM POWD.PACK PO (09:26)
[2024-04-08] MEDS: CIPROFLOXACIN HCL 500 MG TABLET PO ×2 (09:26→20:54)
[2024-04-08] MEDS: MAGNESIUM HYDROXIDE 30 ML ORAL SUSP ML PO (12:00)
--- NOTE | 2024-04-08 18:45 | PD.SAPROG ---
Progress Note - SubAcute DIAGNOSIS (1) Ventilator dependence: Status: Chronic (2) Limb-girdle muscular dystrophy, type 2B: Status: Chronic (3) Tracheostomy in place: Status: Chronic (4) Chronic respiratory failure with hypoxia and hypercapnia: Status: Chronic (5) G tube feedings: Status: Chronic SUBJECTIVE Fever:: none Shortness of Breath:: none Pain:: none OBJECTIVE Most recent vital signs: Last Vital Signs Temp 98.5 F 04/10/24 06:00 Pulse 73 04/10/24 16:30 Resp 36 H 04/10/24 16:30 BP 109/74 04/10/24 06:00 Pulse Ox 100 04/10/24 16:30 O2 Del Method Blow-by 04/10/24 06:00 FiO2 30 04/10/24 16:30 Neurological:: alert Answers questions:: yes Respiratory:: rhonchi Cardiovascular: RRR Abdomen: soft and nontender Extremities:: deformities (Limb girdle muscle weakness severe due to dystrophy and pt thus bed bound) Tracheostomy:: to ventilator Feeding per:: po Complaints:: none ASSESSMENT & PLAN Assessment: Pt very cooperative. Weaning off ventilator as per protocol continued. no success yet. No complaints. PO intake fair. Weight monitoring done. no pain issues. Pt comfortable and content. Remains active. Pt had urinary retention confirmed with Ultra sound a few days ago and had a catheter placed successfully and bladder training initiated. VSS Plan: treatment and ventilator settings reviewed and continued.
[2024-04-08] MEDS: MELATONIN 3 MG TABLET GT (20:57)
[2024-04-09] VITALS (9 sets, daily range): BP systolic 100–125; BP diastolic 65–86; PULSE 67–94; RESP 24–35; TEMP 36.4–37.1; O2SAT 97–99
[2024-04-09] MEDS: CIPROFLOXACIN HCL 500 MG TABLET PO ×2 (08:32→21:21)
[2024-04-09] MEDS: SODIUM PHOSPHATE,MONO-DIBASIC 133 ML ENEMA PR (13:33)
[2024-04-09] MEDS: ACETAMINOPHEN 325 MG TABLET 650 MG GT ×2 (15:52→23:50)
[2024-04-09] MEDS: MELATONIN 3 MG TABLET GT (21:23)
[2024-04-10] VITALS: BP 127/87; PULSE 75; RESP 38; TEMP 36.3
[2024-04-10 00:10] VITALS: PULSE 75; RESP 23; O2SAT 98
--- NOTE | 2024-04-10 03:10 | PC.NURSE ---
Patient was asked if bladder scanned can be done due to not voided since 1999. Patient refused. He stated that he does not want to be moved due to him being in pain. He also thought he had voided after 1999 but reminded him he has not, that he only had small BMs. Patient was made aware of the risk of not voiding and refusing bladder scan. I also mentioned the benefits of getting the bladder scan done. He still refused. Said he just wanted to be left alone and do not want to move. Charge nurse was notified of patient refusal. Will continue to monitor any changes.
--- NOTE | 2024-04-10 03:35 | PC.NURSE ---
Per SKIDDER LEVER OPERATOR and TALENT PROGRAM MANAGER resident has not voided since 1939, SKIDDER LEVER OPERATOR offered to do a bladder scan but resident refused, at 333-resident called to be reposition, this nurse answered the call light with TALENT PROGRAM MANAGER, this nurse asked resident if he was having a difficulty urinating and if this nurse can check his abd. resident said, Can I just be reposition, I am just trying to sleep, honestly some of you guys are just funked annoying. This nurse then stated, I'm sorry, I am just trying to do my job. resident was repositioned and at 337 resident called again stating he peed, resident was changed, call light within reach, fluids offer throughout the night.
[2024-04-10 06:00] VITALS: BP 109/74; PULSE 68; RESP 34; TEMP 36.9; O2SAT 100
[2024-04-10 07:33] VITALS: PULSE 77; RESP 26; RESP 29; O2SAT 97
[2024-04-10] MEDS: CIPROFLOXACIN HCL 500 MG TABLET PO ×2 (09:55→20:48)
[2024-04-10 12:18] VITALS: PULSE 84; RESP 20; O2SAT 98
[2024-04-10] MEDS: ACETAMINOPHEN 325 MG TABLET 650 MG GT (13:15)
--- NOTE | 2024-04-10 14:38 | PC.SS ---
DDS here for full mouth x-rays, resident refused to be seen. Resident will continue to be offered dental exams.
[2024-04-10 16:30] VITALS: PULSE 73; RESP 36; O2SAT 100
--- NOTE | 2024-04-10 17:20 | PC.NURSE ---
Resident c/o abdominal discomfort. He also c/o having difficulty having a bowel movement. Assessed bowel sounds active all 4 quadrants. resident also not drinking or eating adequately at time. encouraged to increased fluid intake resident refuses to increase his fluids. Notified MD order for Lactulose 30mg BID x 2 days. Resident agreed to take this med. Will continue to monitor.
[2024-04-10] MEDS: LACTULOSE 10 GM/15 ML SOLUTION 20 GM GT ×2 (17:55→20:49)
[2024-04-10] MEDS: FERROUS SULFATE 220 MG/5 ML ELIXIR 300 MG PO (20:48)
[2024-04-11] VITALS (8 sets, daily range): BP systolic 105–112; BP diastolic 64–68; PULSE 68–78; RESP 17–35; TEMP 36.1–36.8; O2SAT 98–100
[2024-04-11] MEDS: LACTULOSE 10 GM/15 ML SOLUTION 20 GM GT (09:17)
[2024-04-11] MEDS: CIPROFLOXACIN HCL 500 MG TABLET PO ×2 (09:17→20:21)
--- NOTE | 2024-04-11 16:48 | PD.SAPROG ---
Progress Note - SubAcute DIAGNOSIS (1) Ventilator dependence: Status: Chronic (2) Limb-girdle muscular dystrophy, type 2B: Status: Chronic (3) Tracheostomy in place: Status: Chronic (4) Chronic respiratory failure with hypoxia and hypercapnia: Status: Chronic (5) G tube feedings: Status: Chronic SUBJECTIVE Fever:: none Shortness of Breath:: none Pain:: none OBJECTIVE Most recent vital signs: Last Vital Signs Temp 97.8 F 04/11/24 11:43 Pulse 71 04/11/24 13:31 Resp 17 04/11/24 11:43 BP 108/68 04/11/24 11:43 Pulse Ox 98 04/11/24 13:31 O2 Del Method Blow-by 04/11/24 06:00 FiO2 30 04/11/24 13:31 Neurological:: alert Answers questions:: yes Respiratory:: rhonchi Cardiovascular: RRR Abdomen: soft and nontender Extremities:: deformities (Limb girdle muscle weakness severe due to dystrophy and pt thus bed bound) Tracheostomy:: to ventilator Feeding per:: po Complaints:: none ASSESSMENT & PLAN Assessment: Pt very cooperative. Weaning off ventilator as per protocol continued. no success yet. No complaints. PO intake fair. Weight monitoring done. no pain issues. Pt comfortable and content. Remains active. Pt had urinary retention confirmed with Ultra sound a few days ago and had a catheter placed successfully and bladder training initiated. VSS Plan: treatment and ventilator settings reviewed and continued.
[2024-04-12] VITALS (8 sets, daily range): BP systolic 91–135; BP diastolic 23–92; PULSE 67–93; RESP 18–34; TEMP 36.1–36.9; O2SAT 98–100
--- NOTE | 2024-04-12 05:46 | PC.NURSE ---
Last dose of antibiotics given for UTI. No delayed adverse reaction noted. Voiding via brief with no hematuria, no c/o dysuria and no fould odor noted. Fluids encouraged and taken well.
[2024-04-12 07:47] LABS: Basophils % (Auto) 1 % (0-2.5); Eosinophils # (Auto) 0.2 Thou/mm3 (0.0-0.5); Eosinophils % (Auto) 4 % (0-10); Hematocrit 36.1 % (41.0-53.0); Immature Granulocytes % (Auto) 1 % (0-0); Immature Granulocytes Auto 0.03 Thou/mm3 (0.00-0.00); Lymphocytes # (Auto) 2.1 Thou/mm3 (1.0-4.8); Lymphocytes % (Auto) 36 % (10-50); Mean Corpuscular HGB Conc 33.2 g/dl (31.0-37.0); Mean Corpuscular Hemoglobin 30.5 pg (25.0-35.0); Mean Corpuscular Volume 92 fL (80-100); Monocytes # (Auto) 0.6 Thou/mm3 (0.0-0.8); Monocytes % (Auto) 10 % (0-12); Neutrophils # (Auto) 2.9 Thou/mm3 (1.8-7.7); Neutrophils % (Auto) 49 % (37-80); Nucleated Red Blood Cell % 0 /100 WBC (0); Platelet Count 277 Thou/mm3 (140-440); RDW Standard Deviation 52.8 fL (35.1-43.9); Red Blood Count 3.94 Miln/mm3 (4.50-5.90)
[2024-04-12 08:25] LABS: Alanine Aminotransferase 16 U/L (10-49); Albumin, Serum 4.3 gm/dL (3.5-5.0); Albumin/Globulin Ratio 1.7 (1.2-2.2); Alkaline Phosphatase 75 U/L (46-116); Anion Gap 9 (7-16); Aspartate Amino Transferase 13 U/L (0-34); BUN/Creatinine Ratio 45 Ratio (12-20); Bilirubin,Total 0.4 mg/dL (0.3-1.2); Blood Urea Nitrogen 9 mg/dL (9-23); Calcium 10.3 mg/dL (8.3-10.6); Calcium (Corrected) 10.3 mg/dL (8.5-10.1); Carbon Dioxide 26.8 mMol/L (20.0-31.0); Chloride 103 mMol/L (98-107); Creatinine (Component) 0.2 mg/dL (0.6-1.3); Estimated Creatinine Clearance 287.1 mL/min (>60); Globulin 2.5 gm/dL (2.3-3.5); Glucose 86 mg/dL (74-106); Osmolality,Calculated 275 (275-295); Sodium 139 mMol/L (136-145); Total Protein 6.8 gm/dL (5.7-8.2); eGFR > 60 See Note
[2024-04-12] MEDS: DEX/HYPRO/GLY ARTIFICAL TEARS 225 DROP/15 ML BTL BOTH EYES (15:33)
[2024-04-12] MEDS: FERROUS SULFATE 220 MG/5 ML ELIXIR 300 MG PO (21:02)
[2024-04-13] VITALS (8 sets, daily range): BP systolic 92–110; BP diastolic 57–75; PULSE 69–796; RESP 14–35; TEMP 36.3–36.6; O2SAT 97–99
[2024-04-13] MEDS: ACETAMINOPHEN 325 MG TABLET 650 MG GT (02:45)
--- NOTE | 2024-04-13 12:24 | PC.NURSE ---
Addendum entered by Georgia Francisco RN 04/13/24 12:28: Called DR Montanez's office to canceling consultation. Left voice mail with detail. Original Note: Assessed resident regarding urinary retention or difficulty with urination. Resident denied any of this symptoms, denied any discomfort. Resident completed course of antibiotic therapy for UTI. Resident voiding adequately about 6-7 tiume in 24hour. Notified MD Velasquez. Order to cancel consult with Dr. Montanez (urologist). Will continue to monitor resident for changes.
--- NOTE | 2024-04-13 12:45 | PC.NURSE ---
Reviewed medication melatonin with MD. Order to give med every other day x7days then discontinue. Will carry out new order.
[2024-04-13] MEDS: MELATONIN 3 MG TABLET PO (21:06)
[2024-04-14] VITALS: BP 101/69; PULSE 80; RESP 35; TEMP 36.3
[2024-04-14 00:55] VITALS: PULSE 75; RESP 21; O2SAT 98
[2024-04-14 06:00] VITALS: BP 104/68; PULSE 66; RESP 19; TEMP 36.1; O2SAT 97
[2024-04-14 06:50] VITALS: PULSE 81; RESP 19; O2SAT 97
[2024-04-14 13:33] VITALS: PULSE 87; RESP 18; O2SAT 96
[2024-04-14 18:50] VITALS: PULSE 78; RESP 29; O2SAT 97
[2024-04-14] MEDS: FERROUS SULFATE 220 MG/5 ML ELIXIR 300 MG PO (21:23)
[2024-04-15] VITALS (8 sets, daily range): BP systolic 98–146; BP diastolic 59–81; PULSE 60–78; RESP 14–41; TEMP 36.3–37; O2SAT 96–100
--- NOTE | 2024-04-15 19:46 | PD.SAPROG ---
Progress Note - SubAcute DIAGNOSIS (1) Ventilator dependence: Status: Chronic (2) Limb-girdle muscular dystrophy, type 2B: Status: Chronic (3) Tracheostomy in place: Status: Chronic (4) Chronic respiratory failure with hypoxia and hypercapnia: Status: Chronic (5) G tube feedings: Status: Chronic SUBJECTIVE Fever:: none Shortness of Breath:: none Pain:: none OBJECTIVE Most recent vital signs: Last Vital Signs Temp 98.6 F 04/15/24 18:00 Pulse 68 04/15/24 18:00 Resp 34 H 04/15/24 18:00 BP 117/68 04/15/24 18:00 Pulse Ox 100 04/15/24 18:00 O2 Del Method Mechanical Ventilation 04/15/24 06:00 FiO2 30 04/15/24 16:36 Neurological:: alert Answers questions:: yes Respiratory:: rhonchi Cardiovascular: RRR Abdomen: soft and nontender Extremities:: deformities (Limb girdle muscle weakness severe due to dystrophy and pt thus bed bound) Tracheostomy:: to ventilator Feeding per:: po Complaints:: none ASSESSMENT & PLAN Assessment: Pt very cooperative. Weaning off ventilator as per protocol continued. no success yet. No complaints. PO intake fair. Weight monitoring done. no pain issues. Pt comfortable and content. Remains active. Pt had urinary retention confirmed with Ultra sound a few days ago and had a catheter placed successfully and bladder training initiated and subsequently DC'd. VSS Plan: treatment and ventilator settings reviewed and continued.
[2024-04-15] MEDS: MELATONIN 3 MG TABLET PO (21:07)
[2024-04-16] VITALS (8 sets, daily range): BP systolic 100–107; BP diastolic 65–71; PULSE 69–80; RESP 15–39; TEMP 36.8–37.1; O2SAT 98–100
[2024-04-16] MEDS: FERROUS SULFATE 220 MG/5 ML ELIXIR 300 MG PO (20:59)
[2024-04-17] VITALS (8 sets, daily range): BP systolic 99–118; BP diastolic 55–72; PULSE 60–84; RESP 20–35; TEMP 36.4–36.7; O2SAT 97–100
[2024-04-17] MEDS: MELATONIN 3 MG TABLET PO (20:50)
[2024-04-18] VITALS (8 sets, daily range): BP systolic 92–108; BP diastolic 60–71; PULSE 53–94; RESP 18–38; TEMP 36.1–36.5; O2SAT 96–100
--- NOTE | 2024-04-18 11:16 | PC.SS ---
Room visit: Resident mother is at bedside, residnet is laying in bed said he is tired this morning and is going back to sleep. Resident said he has not been going to activities and said he would try to go another time. Resident is not showing any changes in mood and behavior.
[2024-04-18] MEDS: FERROUS SULFATE 220 MG/5 ML ELIXIR 300 MG PO (20:54)
[2024-04-19] VITALS (7 sets, daily range): BP systolic 95–126; BP diastolic 55–81; PULSE 62–81; RESP 18–37; TEMP 36.3–36.6; O2SAT 97–99
[2024-04-19] MEDS: DEX/HYPRO/GLY ARTIFICAL TEARS 225 DROP/15 ML BTL BOTH EYES (19:26)
--- NOTE | 2024-04-19 20:46 | PD.SAPROG ---
Progress Note - SubAcute DIAGNOSIS (1) Ventilator dependence: Status: Chronic (2) Limb-girdle muscular dystrophy, type 2B: Status: Chronic (3) Tracheostomy in place: Status: Chronic (4) Chronic respiratory failure with hypoxia and hypercapnia: Status: Chronic (5) G tube feedings: Status: Chronic SUBJECTIVE Fever:: none Shortness of Breath:: none Pain:: none OBJECTIVE Most recent vital signs: Last Vital Signs Temp 97.8 F 04/19/24 18:00 Pulse 78 04/19/24 18:00 Resp 19 04/19/24 18:00 BP 108/70 04/19/24 18:00 Pulse Ox 99 04/19/24 12:33 O2 Del Method Mechanical Ventilation 04/19/24 06:00 FiO2 30 04/19/24 12:33 Neurological:: alert Answers questions:: yes Respiratory:: rhonchi Cardiovascular: RRR Abdomen: soft and nontender Extremities:: deformities (Limb girdle muscle weakness severe due to dystrophy and pt thus bed bound) Tracheostomy:: to ventilator Feeding per:: po Complaints:: none ASSESSMENT & PLAN Assessment: Pt very cooperative. Weaning off ventilator as per protocol continued. no success yet. No complaints. PO intake fair. Weight monitoring done. no pain issues. Pt comfortable and content. Remains active. Pt had urinary retention confirmed with Ultra sound a few days ago and had a catheter placed successfully and bladder training initiated and subsequently DC'd. VSS. Tolerating feeding. Plan: treatment and ventilator settings reviewed and continued.
[2024-04-19] MEDS: MELATONIN 3 MG TABLET PO (21:03)
[2024-04-20] VITALS (8 sets, daily range): BP systolic 100–115; BP diastolic 59–74; PULSE 69–92; RESP 14–39; TEMP 36.3–36.9; O2SAT 96–100
[2024-04-20] MEDS: FERROUS SULFATE 220 MG/5 ML ELIXIR 300 MG PO (21:27)
[2024-04-21] VITALS (8 sets, daily range): BP systolic 96–114; BP diastolic 57–76; PULSE 65–78; RESP 18–36; TEMP 36.1–36.7; O2SAT 98–100
--- NOTE | 2024-04-21 12:30 | PC.SS ---
Room visit: Resident is laying in bed with head of the bed elevated with call light properly placed with no signs of distress and in good spirits. Resident is alert and oriented with clear speech able to make needs known. His mother Zeynep is his decision maker, as he decides with his mother. Resident has no changes in care or condition he remains on vent with trach in place. He will remain in current care and will have all subacute care needs met by staff. This SSD will continue to make daily contact with resident and monitor for changes in mood and behavior.
[2024-04-21] MEDS: MELATONIN 3 MG TABLET PO (21:21)
[2024-04-22] VITALS (8 sets, daily range): BP systolic 99–112; BP diastolic 63–74; PULSE 56–74; RESP 16–39; TEMP 36.6–37.1; O2SAT 98–99
[2024-04-22] MEDS: FERROUS SULFATE 220 MG/5 ML ELIXIR 300 MG PO (21:20)
[2024-04-23] VITALS (7 sets, daily range): BP systolic 101–118; BP diastolic 67–85; PULSE 63–91; RESP 17–38; TEMP 36.5–36.9; O2SAT 97–100
--- NOTE | 2024-04-23 09:49 | PD.SAPROG ---
Progress Note - SubAcute DIAGNOSIS (1) Ventilator dependence: Status: Chronic (2) Limb-girdle muscular dystrophy, type 2B: Status: Chronic (3) Tracheostomy in place: Status: Chronic (4) Chronic respiratory failure with hypoxia and hypercapnia: Status: Chronic (5) G tube feedings: Status: Chronic SUBJECTIVE Fever:: none Shortness of Breath:: none Pain:: none OBJECTIVE Most recent vital signs: Last Vital Signs Temp 98.1 F 04/23/24 06:00 Pulse 72 04/23/24 07:40 Resp 17 04/23/24 07:40 BP 104/68 04/23/24 06:00 Pulse Ox 98 04/23/24 07:40 O2 Del Method Mechanical Ventilation 04/23/24 06:00 FiO2 30 04/23/24 09:16 Neurological:: alert Answers questions:: yes Respiratory:: rhonchi Cardiovascular: RRR Abdomen: soft and nontender Extremities:: deformities (Limb girdle muscle weakness severe due to dystrophy and pt thus bed bound) Tracheostomy:: to ventilator Feeding per:: po Complaints:: none ASSESSMENT & PLAN Assessment: Pt very cooperative. Weaning off ventilator as per protocol continued. no success yet. No complaints. PO intake fair. Weight monitoring done. no pain issues. Pt comfortable and content. Remains active. Pt had urinary retention confirmed with Ultra sound a few days ago and had a catheter placed successfully and bladder training initiated and subsequently DC'd. VSS. Tolerating feeding. Plan: treatment and ventilator settings reviewed and continued.
[2024-04-23] MEDS: MELATONIN 3 MG TABLET PO (20:53)
[2024-04-24] VITALS (8 sets, daily range): BP systolic 92–136; BP diastolic 56–76; PULSE 62–89; RESP 14–38; TEMP 36.3–37; O2SAT 98–99
[2024-04-24] MEDS: FERROUS SULFATE 220 MG/5 ML ELIXIR 300 MG PO (20:30)
[2024-04-25] VITALS (8 sets, daily range): BP systolic 97–111; BP diastolic 60–76; PULSE 65–78; RESP 14–36; TEMP 36.8–37; O2SAT 97–99
[2024-04-25] MEDS: MELATONIN 3 MG TABLET PO (20:26)
[2024-04-26] VITALS (8 sets, daily range): BP systolic 98–117; BP diastolic 59–71; PULSE 62–80; RESP 14–37; TEMP 36.6–36.8; O2SAT 98–100
--- NOTE | 2024-04-26 14:34 | PC.SS ---
This SSD spoke with resident and RP/Mother Olive Galdamez at bedside. Followed up with both regarding advance directive. Olive and resident had been offered this service by SSD at admission but both said they were interested but would need to talk more about before having it done. This SSD provided information regarding advance directive and the process of having it established. Both Olive and Scot agreed to have advance directive complete. This SSD called diana informed them of the service resident and RP would like done. Ombudsman will be present tomorrow to meet with resident before advance directive is complete. Resident and Olive made aware of tomorrows bedside appointment. This SSD made DON aware of service taking place tomorrow.
[2024-04-26] MEDS: FERROUS SULFATE 220 MG/5 ML ELIXIR 300 MG PO (21:12)
[2024-04-27] VITALS (8 sets, daily range): BP systolic 99–118; BP diastolic 63–84; PULSE 54–72; RESP 14–41; TEMP 36.2–36.8; O2SAT 97–99
--- NOTE | 2024-04-27 19:57 | PD.SAPROG ---
Progress Note - SubAcute DIAGNOSIS (1) Ventilator dependence: Status: Chronic (2) Limb-girdle muscular dystrophy, type 2B: Status: Chronic (3) Tracheostomy in place: Status: Chronic (4) Chronic respiratory failure with hypoxia and hypercapnia: Status: Chronic (5) G tube feedings: Status: Chronic SUBJECTIVE Fever:: none Shortness of Breath:: none Pain:: none OBJECTIVE Most recent vital signs: Last Vital Signs Temp 97.5 F 04/27/24 17:56 Pulse 54 L 04/27/24 17:56 Resp 14 04/27/24 17:56 BP 106/71 04/27/24 17:56 Pulse Ox 97 04/27/24 12:55 O2 Del Method Mechanical Ventilation 04/27/24 06:00 FiO2 30 04/27/24 12:55 Neurological:: alert Answers questions:: yes Respiratory:: rhonchi Cardiovascular: RRR Abdomen: soft and nontender Extremities:: deformities (Limb girdle muscle weakness severe due to dystrophy and pt thus bed bound) Tracheostomy:: to ventilator Feeding per:: po Complaints:: none ASSESSMENT & PLAN Assessment: Pt very cooperative. Weaning off ventilator as per protocol continued. no success yet. No complaints. PO intake fair. Weight monitoring done. no pain issues. Pt comfortable and content. Remains active. Pt had urinary retention confirmed with Ultra sound a few days ago and had a catheter placed successfully and bladder training initiated and subsequently DC'd. VSS. Tolerating feeding. Will continue to wean him off the Ventilator as tolerated. Plan: treatment and ventilator settings reviewed and continued.
[2024-04-27] MEDS: ACETAMINOPHEN 325 MG TABLET 650 MG GT (21:20)
[2024-04-28] VITALS (8 sets, daily range): BP systolic 98–103; BP diastolic 57–65; PULSE 61–78; RESP 14–34; TEMP 36.3–36.6; O2SAT 97–99
[2024-04-28] MEDS: FERROUS SULFATE 220 MG/5 ML ELIXIR 300 MG PO (21:21)
[2024-04-29] VITALS (7 sets, daily range): BP systolic 100–110; BP diastolic 56–71; PULSE 66–84; RESP 16–31; TEMP 36.4–36.7; O2SAT 98–99
--- NOTE | 2024-04-29 21:00 | PC.NURSE ---
Resident requested melatonin, no order at this time. RN called MD for request, MD denied.
[2024-04-29] MEDS: ACETAMINOPHEN 325 MG TABLET 650 MG GT (21:15)
[2024-04-30] VITALS (7 sets, daily range): BP systolic 103–116; BP diastolic 68–73; PULSE 65–77; RESP 16–32; TEMP 35.9–36.8; O2SAT 98–100
[2024-04-30] MEDS: FERROUS SULFATE 220 MG/5 ML ELIXIR 300 MG PO (20:36)
[2024-05-01] VITALS (8 sets, daily range): BP systolic 108–113; BP diastolic 66–73; PULSE 63–76; RESP 16–33; TEMP 36.4–37.1; O2SAT 98–100
[2024-05-01] MEDS: CARBAMIDE PEROXIDE OTIC SOL 15 ML BTL 5 DROP BOTH EARS ×2 (08:10→20:21)
--- NOTE | 2024-05-01 22:21 | PD.SAPROG ---
Progress Note - SubAcute DIAGNOSIS (1) Ventilator dependence: Status: Chronic (2) Limb-girdle muscular dystrophy, type 2B: Status: Chronic (3) Tracheostomy in place: Status: Chronic (4) Chronic respiratory failure with hypoxia and hypercapnia: Status: Chronic (5) G tube feedings: Status: Chronic SUBJECTIVE Fever:: none Shortness of Breath:: none Pain:: none OBJECTIVE Most recent vital signs: Last Vital Signs Temp 98.0 F 05/01/24 16:57 Pulse 70 05/01/24 16:57 Resp 33 H 05/01/24 16:57 BP 113/71 05/01/24 16:57 Pulse Ox 100 05/01/24 16:57 O2 Del Method Mechanical Ventilation 05/01/24 16:57 FiO2 30 05/01/24 16:57 Neurological:: alert Answers questions:: yes Respiratory:: rhonchi Cardiovascular: RRR Abdomen: soft and nontender Extremities:: deformities (Limb girdle muscle weakness severe due to dystrophy and pt thus bed bound) Tracheostomy:: to ventilator Feeding per:: po Complaints:: none ASSESSMENT & PLAN Assessment: Pt very cooperative. Weaning off ventilator as per protocol continued. no success yet. No complaints. PO intake fair. Weight monitoring done. no pain issues. Pt comfortable and content. Remains active. Pt had urinary retention confirmed with Ultra sound a few days ago and had a catheter placed successfully and bladder training initiated and subsequently DC'd. VSS. Tolerating feeding. Will continue to wean him off the Ventilator as tolerated. Plan: treatment and ventilator settings reviewed and continued.
[2024-05-02] VITALS (8 sets, daily range): BP systolic 95–105; BP diastolic 60–68; PULSE 63–81; RESP 16–32; TEMP 36.6–36.8; O2SAT 98–100
[2024-05-02] MEDS: FERROUS SULFATE 220 MG/5 ML ELIXIR 300 MG PO (21:29)
[2024-05-03] VITALS (8 sets, daily range): BP systolic 91–105; BP diastolic 58–68; PULSE 59–98; RESP 14–33; TEMP 36.1–36.9; O2SAT 97–100
[2024-05-03] MEDS: ACETAMINOPHEN 325 MG TABLET 650 MG GT (13:26)
[2024-05-04] VITALS (8 sets, daily range): BP systolic 95–117; BP diastolic 60–82; PULSE 65–87; RESP 16–32; TEMP 36.2–36.4; O2SAT 97–100; BMI 14.5
--- NOTE | 2024-05-04 09:32 | PC.SS ---
This SSD spoke with resident, he states he is having trouble sleeping and says he wakes up in the middle of the night and stays awake. Resident said he was taking Melatonin and is no longer taking it, he said he wishes to take it again to help him sleep as it did before. This SSD notified charge nurse.
[2024-05-04] MEDS: ACETAMINOPHEN 325 MG TABLET 650 MG GT (16:10)
--- NOTE | 2024-05-04 17:02 | PC.NURSE ---
Resident c/o can't sleep at night /awake most of the night. Order received from Dr Velasquez to give Melatonin 3 mg PRN
[2024-05-04] MEDS: IPRATROPIUM/ALBUTEROL 3 ML AMPUL.NEB INH (19:34)
[2024-05-04] MEDS: FERROUS SULFATE 220 MG/5 ML ELIXIR 300 MG PO (21:28)
[2024-05-04] MEDS: MELATONIN 3 MG TABLET PO (21:35)
[2024-05-05] VITALS (8 sets, daily range): BP systolic 96–108; BP diastolic 58–73; PULSE 66–83; RESP 17–30; TEMP 36.2–37.1; O2SAT 96–100; BMI 14.5
--- NOTE | 2024-05-05 17:28 | PC.NURSE ---
Seen by Dr kendrick, no new orders made
--- NOTE | 2024-05-05 22:04 | PD.SAPROG ---
Progress Note - SubAcute DIAGNOSIS (1) Ventilator dependence: Status: Chronic (2) Limb-girdle muscular dystrophy, type 2B: Status: Chronic (3) Tracheostomy in place: Status: Chronic (4) Chronic respiratory failure with hypoxia and hypercapnia: Status: Chronic (5) G tube feedings: Status: Chronic SUBJECTIVE Fever:: none Shortness of Breath:: none Pain:: none OBJECTIVE Most recent vital signs: Last Vital Signs Temp 98.2 F 05/05/24 17:06 Pulse 83 05/05/24 17:06 Resp 21 H 05/05/24 17:06 BP 102/66 05/05/24 17:06 Pulse Ox 100 05/05/24 17:06 O2 Del Method Mechanical Ventilation 05/05/24 17:06 FiO2 30 05/05/24 17:06 Neurological:: alert Answers questions:: yes Respiratory:: rhonchi Cardiovascular: RRR Abdomen: soft and nontender Extremities:: deformities (Limb girdle muscle weakness severe due to dystrophy and pt thus bed bound) Tracheostomy:: to ventilator Feeding per:: po Complaints:: none ASSESSMENT & PLAN Assessment: Pt very cooperative. Weaning off ventilator as per protocol continued. no success yet. No complaints. PO intake fair. Weight monitoring done. no pain issues. Pt comfortable and content. Remains active. Pt had urinary retention confirmed with Ultra sound a few days ago and had a catheter placed successfully and bladder training initiated and subsequently DC'd. VSS. Tolerating feeding. Will continue to wean him off the Ventilator as tolerated. Pt started on prn Melatonin for mild insomnia Plan: treatment and ventilator settings reviewed and continued.
[2024-05-06] VITALS (8 sets, daily range): BP systolic 100–110; BP diastolic 64–72; PULSE 67–92; RESP 19–33; TEMP 36.6–36.8; O2SAT 98–100
[2024-05-06] MEDS: FERROUS SULFATE 220 MG/5 ML ELIXIR 300 MG PO (20:53)
[2024-05-07] VITALS (7 sets, daily range): BP systolic 104–111; BP diastolic 65–71; PULSE 69–88; RESP 17–34; TEMP 36.1–36.6; O2SAT 96–100
[2024-05-07] MEDS: MELATONIN 3 MG TABLET PO (22:45)
[2024-05-08] VITALS (8 sets, daily range): BP systolic 99–112; BP diastolic 59–74; PULSE 52–83; RESP 14–27; TEMP 36.2–36.6; O2SAT 97–99
[2024-05-08] MEDS: FERROUS SULFATE 220 MG/5 ML ELIXIR 300 MG PO (21:13)
[2024-05-08] MEDS: MELATONIN 3 MG TABLET PO (21:30)
[2024-05-09] VITALS: BP 111/68; PULSE 73; RESP 28; TEMP 36.2
[2024-05-09 06:40] VITALS: PULSE 63; RESP 21; O2SAT 96
[2024-05-09 12:00] VITALS: BP 101/64; PULSE 84; RESP 29; TEMP 36.9
[2024-05-09 12:33] VITALS: PULSE 73; RESP 22; O2SAT 97
[2024-05-09 18:00] VITALS: BP 99/66; PULSE 76; RESP 26; TEMP 36.8; O2SAT 99
[2024-05-09] MEDS: MELATONIN 3 MG TABLET PO (19:56)
[2024-05-09 20:00] VITALS: PULSE 81; RESP 17; RESP 321; O2SAT 98
--- NOTE | 2024-05-09 20:52 | PD.SAPROG ---
Progress Note - SubAcute DIAGNOSIS (1) Ventilator dependence: Status: Chronic (2) Limb-girdle muscular dystrophy, type 2B: Status: Chronic (3) Tracheostomy in place: Status: Chronic (4) Chronic respiratory failure with hypoxia and hypercapnia: Status: Chronic (5) G tube feedings: Status: Chronic SUBJECTIVE Fever:: none Shortness of Breath:: none Pain:: none OBJECTIVE Most recent vital signs: Last Vital Signs Temp 98.3 F 05/09/24 18:00 Pulse 76 05/09/24 18:00 Resp 26 H 05/09/24 18:00 BP 99/66 05/09/24 18:00 Pulse Ox 99 05/09/24 18:00 O2 Del Method Mechanical Ventilation 05/09/24 18:00 FiO2 30 05/09/24 14:30 Neurological:: alert Answers questions:: yes Respiratory:: rhonchi Cardiovascular: RRR Abdomen: soft and nontender Extremities:: deformities (Limb girdle muscle weakness severe due to dystrophy and pt thus bed bound) Tracheostomy:: to ventilator Feeding per:: po Complaints:: none ASSESSMENT & PLAN Assessment: Pt very cooperative. Weaning off ventilator as per protocol continued. no success yet. No complaints. PO intake fair. Weight monitoring done. no pain issues. Pt comfortable and content. Remains active. Pt had urinary retention confirmed with Ultra sound a few days ago and had a catheter placed successfully and bladder training initiated and subsequently DC'd. VSS. Tolerating feeding. Will continue to wean him off the Ventilator as tolerated. Pt started on prn Melatonin for mild insomnia Plan: treatment and ventilator settings reviewed and continued.
[2024-05-10] VITALS: BP 111/76; PULSE 83; RESP 32; TEMP 36.4
[2024-05-10 00:25] VITALS: PULSE 64; RESP 19; O2SAT 98
[2024-05-10 06:00] VITALS: BP 115/76; PULSE 80; RESP 31; TEMP 36.4; O2SAT 100
[2024-05-10 06:59] VITALS: PULSE 78; RESP 14; O2SAT 97
[2024-05-10 12:32] VITALS: PULSE 69; RESP 16; O2SAT 98
[2024-05-10 19:15] VITALS: PULSE 96; RESP 28; O2SAT 99
[2024-05-10] MEDS: FERROUS SULFATE 220 MG/5 ML ELIXIR 300 MG PO (21:04)
[2024-05-11] VITALS (7 sets, daily range): BP systolic 97–104; BP diastolic 65–68; PULSE 62–77; RESP 12–31; TEMP 36.2–36.5; O2SAT 98–99
[2024-05-12] VITALS (8 sets, daily range): BP systolic 97–113; BP diastolic 57–70; PULSE 65–89; RESP 14–35; TEMP 36.2–37.2; O2SAT 98–99
--- NOTE | 2024-05-12 15:59 | PC.IP ---
Resident has continued to refuse Pneumonia and Influenza vaccines. Will continue to revisit this subject, unless resident is not receptive to possibility of vaccine administration at future date. Is aware of his ability to be vulnerable to respiratory viruses and infections.
--- NOTE | 2024-05-12 17:03 | PD.SAPROG ---
Progress Note - SubAcute DIAGNOSIS (1) Ventilator dependence: Status: Chronic (2) Limb-girdle muscular dystrophy, type 2B: Status: Chronic (3) Tracheostomy in place: Status: Chronic (4) Chronic respiratory failure with hypoxia and hypercapnia: Status: Chronic (5) G tube feedings: Status: Chronic SUBJECTIVE Fever:: none Shortness of Breath:: none Pain:: none OBJECTIVE Most recent vital signs: Last Vital Signs Temp 98.9 F 05/12/24 12:00 Pulse 89 05/12/24 13:05 Resp 27 H 05/12/24 12:00 BP 97/57 L 05/12/24 12:00 Pulse Ox 98 05/12/24 13:05 O2 Del Method Mechanical Ventilation 05/11/24 06:00 FiO2 30 05/12/24 13:05 Neurological:: alert Answers questions:: yes Respiratory:: rhonchi Cardiovascular: RRR Abdomen: soft and nontender Extremities:: deformities (Limb girdle muscle weakness severe due to dystrophy and pt thus bed bound) Tracheostomy:: to ventilator Feeding per:: po Complaints:: none ASSESSMENT & PLAN Assessment: Pt very cooperative. Weaning off ventilator as per protocol continued. no success yet. No complaints. PO intake fair. Weight monitoring done. no pain issues. Pt comfortable and content. Remains active. Pt had urinary retention confirmed with Ultra sound a few days ago and had a catheter placed successfully and bladder training initiated and subsequently DC'd. VSS. Tolerating feeding. Will continue to wean him off the Ventilator as tolerated. Pt started on prn Melatonin for mild insomnia Plan: treatment and ventilator settings reviewed and continued.
[2024-05-12] MEDS: IPRATROPIUM/ALBUTEROL 3 ML AMPUL.NEB INH (18:21)
[2024-05-12] MEDS: FERROUS SULFATE 220 MG/5 ML ELIXIR 300 MG PO (20:25)
[2024-05-13] VITALS (8 sets, daily range): BP systolic 102–104; BP diastolic 68–70; PULSE 71–90; RESP 16–32; TEMP 36.7; O2SAT 98–99
[2024-05-13 07:55] LABS: Basophils % (Auto) 1 % (0-2.5); Eosinophils # (Auto) 0.2 Thou/mm3 (0.0-0.5); Eosinophils % (Auto) 3 % (0-10); Hematocrit 36.2 % (41.0-53.0); Hemoglobin 11.8 g/dL (13.5-16.0); Immature Granulocytes % (Auto) 0 % (0-0); Immature Granulocytes Auto 0.01 Thou/mm3 (0.00-0.00); Lymphocytes # (Auto) 1.8 Thou/mm3 (1.0-4.8); Lymphocytes % (Auto) 28 % (10-50); Mean Corpuscular HGB Conc 32.6 g/dl (31.0-37.0); Mean Corpuscular Hemoglobin 30.8 pg (25.0-35.0); Mean Corpuscular Volume 95 fL (80-100); Monocytes # (Auto) 0.6 Thou/mm3 (0.0-0.8); Monocytes % (Auto) 10 % (0-12); Neutrophils # (Auto) 3.7 Thou/mm3 (1.8-7.7); Neutrophils % (Auto) 58 % (37-80); Nucleated Red Blood Cell % 0 /100 WBC (0); Platelet Count 191 Thou/mm3 (140-440); Red Blood Count 3.83 Miln/mm3 (4.50-5.90); White Blood Count 6.3 Thou/mm3 (3.8-10.6)
[2024-05-13 08:53] LABS: Alanine Aminotransferase 42 U/L (10-49); Albumin, Serum 4.3 gm/dL (3.5-5.0); Albumin/Globulin Ratio 1.6 (1.2-2.2); Alkaline Phosphatase 87 U/L (46-116); Anion Gap 8 (7-16); Aspartate Amino Transferase 31 U/L (0-34); BUN/Creatinine Ratio 60 Ratio (12-20); Bilirubin,Total 0.4 mg/dL (0.3-1.2); Blood Urea Nitrogen 12 mg/dL (9-23); Calcium 10.1 mg/dL (8.3-10.6); Calcium (Corrected) 10.1 mg/dL (8.5-10.1); Carbon Dioxide 29.1 mMol/L (20.0-31.0); Chloride 104 mMol/L (98-107); Creatinine (Component) < 0.2 mg/dL (0.6-1.3); Estimated Creatinine Clearance 298.3 mL/min (>60); Globulin 2.7 gm/dL (2.3-3.5); Glucose 79 mg/dL (74-106); Osmolality,Calculated 279 (275-295); Potassium 4.7 mMol/L (3.4-5.1); Sodium 141 mMol/L (136-145); eGFR > 60 See Note
[2024-05-13] MEDS: MELATONIN 3 MG TABLET PO (20:33)
[2024-05-14] VITALS (7 sets, daily range): BP systolic 96–100; BP diastolic 57–66; PULSE 67–86; RESP 21–33; TEMP 36.4–36.9; O2SAT 97–99
[2024-05-14] MEDS: FERROUS SULFATE 220 MG/5 ML ELIXIR 300 MG PO (20:54)
[2024-05-14] MEDS: MELATONIN 3 MG TABLET PO (23:56)
[2024-05-15] VITALS: BP 96/66; PULSE 83; RESP 31; TEMP 36.3
[2024-05-15 00:33] VITALS: PULSE 87; RESP 22; O2SAT 98
[2024-05-15 05:42] VITALS: BP 100/72; PULSE 77; RESP 28; TEMP 36.1; O2SAT 99
[2024-05-15 07:03] VITALS: PULSE 75; RESP 33; O2SAT 99
[2024-05-15 12:18] VITALS: PULSE 80; RESP 31; O2SAT 99
[2024-05-15 20:25] VITALS: PULSE 80; RESP 34; O2SAT 99
[2024-05-16] VITALS (8 sets, daily range): BP systolic 100–114; BP diastolic 63–77; PULSE 61–88; RESP 18–312; TEMP 36.6–37.1; O2SAT 98–99
--- NOTE | 2024-05-16 14:00 | PD.SAPROG ---
Progress Note - SubAcute DIAGNOSIS (1) Ventilator dependence: Status: Chronic (2) Limb-girdle muscular dystrophy, type 2B: Status: Chronic (3) Tracheostomy in place: Status: Chronic (4) Chronic respiratory failure with hypoxia and hypercapnia: Status: Chronic (5) G tube feedings: Status: Chronic SUBJECTIVE Fever:: none Shortness of Breath:: none Pain:: none OBJECTIVE Most recent vital signs: Last Vital Signs Temp 97.8 F 05/19/24 05:53 Pulse 65 05/19/24 07:53 Resp 25 H 05/19/24 07:53 BP 104/68 05/19/24 05:53 Pulse Ox 99 05/19/24 07:53 O2 Del Method Mechanical Ventilation 05/19/24 05:53 FiO2 30 05/19/24 07:53 Neurological:: alert Answers questions:: yes Respiratory:: rhonchi Cardiovascular: RRR Abdomen: soft and nontender Extremities:: deformities (Limb girdle muscle weakness severe due to dystrophy and pt thus bed bound) Tracheostomy:: to ventilator Feeding per:: po Complaints:: none ASSESSMENT & PLAN Assessment: Pt very cooperative. Weaning off ventilator as per protocol continued. no success yet. No complaints. PO intake fair. Weight monitoring done. no pain issues. Pt comfortable and content. Remains active. Pt had urinary retention confirmed with Ultra sound a few days ago and had a catheter placed successfully and bladder training initiated and subsequently DC'd. VSS. Tolerating feeding. Will continue to wean him off the Ventilator as tolerated. Pt started on prn Melatonin for mild insomnia. working well. Plan: treatment and ventilator settings reviewed and continued.
[2024-05-16] MEDS: FERROUS SULFATE 220 MG/5 ML ELIXIR 300 MG PO (20:53)
[2024-05-16] MEDS: MELATONIN 3 MG TABLET PO (22:00)
[2024-05-17] VITALS (7 sets, daily range): BP systolic 105–112; BP diastolic 68–74; PULSE 68–86; RESP 14–33; TEMP 35.9–36.5; O2SAT 98–99
--- NOTE | 2024-05-17 11:50 | PC.SS ---
Room visit: Resident is laying in bed with head of the bed elevated with call light properly placed with no signs of distress. Resident has no changes in care or condition, remains on vent with trach in place and continues to consume his meals and meds by mouth. Resident is alert and oriented able to make needs known with clear speech, his mother Olive is his decision maker. Resident will remain in current care and will continue to have all subacute care needs met by staff. This SSD will continue to make daily contact with resident and ratna offer support as he will accept. Currently resident is not willing to engage with this SSD as he continues to say he is tired and going to sleep. SSD to continue to make contact.
[2024-05-18] VITALS (8 sets, daily range): BP systolic 101–131; BP diastolic 62–85; PULSE 73–98; RESP 14–27; TEMP 36.3–36.7; O2SAT 97–99
[2024-05-18] MEDS: IPRATROPIUM/ALBUTEROL 3 ML AMPUL.NEB INH (11:10)
[2024-05-18] MEDS: FERROUS SULFATE 220 MG/5 ML ELIXIR 300 MG PO (20:10)
[2024-05-19 01:05] VITALS: PULSE 74; RESP 25; O2SAT 99
[2024-05-19 05:53] VITALS: BP 104/68; PULSE 73; RESP 19; TEMP 36.6; O2SAT 99
[2024-05-19 07:53] VITALS: PULSE 65; RESP 25; O2SAT 99
[2024-05-19 14:06] VITALS: PULSE 71; RESP 25; O2SAT 99
[2024-05-19 19:55] VITALS: PULSE 84; RESP 27; O2SAT 98; O2SAT 99
[2024-05-20] VITALS (8 sets, daily range): BP systolic 92–120; BP diastolic 64–79; PULSE 61–82; RESP 14–28; TEMP 36–36.6; O2SAT 97–100
[2024-05-20] MEDS: MELATONIN 3 MG TABLET PO (00:24)
[2024-05-20] MEDS: ACETAMINOPHEN 325 MG TABLET 650 MG PO (10:29)
[2024-05-20] MEDS: FERROUS SULFATE 220 MG/5 ML ELIXIR 300 MG PO (20:10)
--- NOTE | 2024-05-20 21:03 | PD.SAPROG ---
Progress Note - SubAcute DIAGNOSIS (1) Ventilator dependence: Status: Chronic (2) Limb-girdle muscular dystrophy, type 2B: Status: Chronic (3) Tracheostomy in place: Status: Chronic (4) Chronic respiratory failure with hypoxia and hypercapnia: Status: Chronic (5) G tube feedings: Status: Chronic SUBJECTIVE Fever:: none Shortness of Breath:: none Pain:: none OBJECTIVE Most recent vital signs: Last Vital Signs Temp 97.9 F 05/20/24 18:00 Pulse 81 05/20/24 18:00 Resp 19 05/20/24 18:00 BP 109/75 05/20/24 18:00 Pulse Ox 99 05/20/24 18:00 O2 Del Method Mechanical Ventilation 05/20/24 18:00 FiO2 40 05/20/24 12:14 Neurological:: alert Answers questions:: yes Respiratory:: rhonchi Cardiovascular: RRR Abdomen: soft and nontender Extremities:: deformities (Limb girdle muscle weakness severe due to dystrophy and pt thus bed bound) Tracheostomy:: to ventilator Feeding per:: po Complaints:: none ASSESSMENT & PLAN Assessment: Pt very cooperative. Weaning off ventilator as per protocol continued. no success yet. No complaints. PO intake fair. Weight monitoring done. no pain issues. Pt comfortable and content. Remains active. Pt had urinary retention confirmed with Ultra sound a few days ago and had a catheter placed successfully and bladder training initiated and subsequently DC'd. VSS. Tolerating feeding. Will continue to wean him off the Ventilator as tolerated. Pt started on prn Melatonin for mild insomnia. working well. Plan: treatment and ventilator settings reviewed and continued.
[2024-05-21] VITALS (7 sets, daily range): BP systolic 97–143; BP diastolic 63–80; PULSE 61–82; RESP 20–31; TEMP 36.3–36.6; O2SAT 98–99
[2024-05-21] MEDS: MELATONIN 3 MG TABLET PO (22:20)
[2024-05-22] VITALS (8 sets, daily range): BP systolic 101–125; BP diastolic 62–87; PULSE 63–80; RESP 15–33; TEMP 36.2–36.9; O2SAT 98–99; BMI 14.3
--- NOTE | 2024-05-22 01:50 | PC.NURSE ---
VENT ALARMING FREQUENTLY FOR AIR LEAK. RESIDENT DOES NOT WANT AIR ADDED TO CUFF. RT OSITO EXPLAINED BUT CONTINUES TO REFUSE. RESIDENT STATES I JUST WANT TO BE LEFT ALONE . INFORMED RESIDENT IF VENT ALARMS, NEED TO CHECK ON HIM. HE STATES I UNDERSTAND THAT YOU NEED TO DO YOUR JOB, BUT LEAVE ME ALONE CALL LIGHT IN PLACE, CONTINUE TO MONITOR.
--- NOTE | 2024-05-22 04:11 | PC.NURSE ---
Patient pressed call light and nurse went to answer the call light. Asked patient if he needed help with anything. Patient told nurse that he would like to be repositioned. Jessica offered to reposition patient but patient asked nurse if he can get the FIELD [employer] OPERATIONS SPECIALIST to reposition him. Nurse endorsed to FIELD [employer]PER[employer] SPECIALIST patient's request. FI[employer] OPERATIONS SPECIALIST made aware.
[2024-05-22] MEDS: FERROUS SULFATE 220 MG/5 ML ELIXIR 300 MG PO (21:31)
[2024-05-23 01:02] VITALS: PULSE 68; RESP 20; O2SAT 98
[2024-05-23 06:00] VITALS: BP 97/63; PULSE 70; RESP 21; TEMP 36.2; O2SAT 98
[2024-05-23 06:45] VITALS: PULSE 82; PULSE 85; RESP 18; O2SAT 99
[2024-05-23] MEDS: ACETAMINOPHEN 325 MG TABLET 650 MG PO ×2 (09:42→21:03)
[2024-05-23 12:34] VITALS: PULSE 89; RESP 27; O2SAT 98
[2024-05-23 20:16] VITALS: PULSE 73; RESP 24; O2SAT 99
[2024-05-24] VITALS (7 sets, daily range): BP systolic 112–123; BP diastolic 74–82; PULSE 75–80; RESP 15–29; TEMP 35.9–36.7; O2SAT 98–100
--- NOTE | 2024-05-24 14:05 | PD.SAPROG ---
Progress Note - SubAcute DIAGNOSIS (1) Ventilator dependence: Status: Chronic (2) Limb-girdle muscular dystrophy, type 2B: Status: Chronic (3) Tracheostomy in place: Status: Chronic (4) Chronic respiratory failure with hypoxia and hypercapnia: Status: Chronic (5) G tube feedings: Status: Chronic SUBJECTIVE Fever:: none Shortness of Breath:: none Pain:: none OBJECTIVE Most recent vital signs: Last Vital Signs Temp 98 F 05/27/24 06:00 Pulse 68 05/27/24 06:00 Resp 20 05/27/24 06:00 BP 107/73 05/27/24 06:00 Pulse Ox 100 05/27/24 06:00 O2 Del Method Mechanical Ventilation 05/25/24 17:33 FiO2 40 05/27/24 01:51 Neurological:: alert Answers questions:: yes Respiratory:: rhonchi Cardiovascular: RRR Abdomen: soft and nontender Extremities:: deformities (Limb girdle muscle weakness severe due to dystrophy and pt thus bed bound) Tracheostomy:: to ventilator Feeding per:: po Complaints:: none ASSESSMENT & PLAN Assessment: Pt very cooperative. Weaning off ventilator as per protocol continued. no success yet. No complaints. PO intake fair. Weight monitoring done. no pain issues. Pt comfortable and content. Remains active. Pt had urinary retention confirmed with Ultra sound a few days ago and had a catheter placed successfully and bladder training initiated and subsequently DC'd. VSS. Tolerating feeding. Will continue to wean him off the Ventilator as tolerated. Pt started on prn Melatonin for mild insomnia. working well. Plan: treatment and ventilator settings reviewed and continued.
[2024-05-24] MEDS: FERROUS SULFATE 220 MG/5 ML ELIXIR 300 MG PO (20:38)
[2024-05-24] MEDS: MELATONIN 3 MG TABLET PO (20:40)
[2024-05-24] MEDS: ACETAMINOPHEN 325 MG TABLET 650 MG PO (23:25)
[2024-05-25] VITALS (8 sets, daily range): BP systolic 102–121; BP diastolic 67–79; PULSE 52–87; RESP 15–30; TEMP 36–36.6; O2SAT 96–100
[2024-05-25] MEDS: ACETAMINOPHEN 325 MG TABLET 650 MG PO ×2 (11:34→23:06)
[2024-05-26] VITALS: BP 122/73; PULSE 83; RESP 15; TEMP 36.3
[2024-05-26 00:48] VITALS: PULSE 74; RESP 31; O2SAT 99
[2024-05-26 05:19] VITALS: BP 103/63; PULSE 76; RESP 12; TEMP 36.3; O2SAT 99
[2024-05-26 09:15] VITALS: PULSE 64; RESP 19; O2SAT 98
--- NOTE | 2024-05-26 13:02 | PC.SS ---
Room visit: Resident is laying in bed with head of the bed elevated with call light properly placed with no signs of distress. Resident has no changes in care or condition, he remains on vent with trach in place and GT for medication and nutrition. He is total care alert and oriented able to make needs known, his mother Olive is his decision maker. Resident will remain in current care and will continue to have all subacute care needs met by staff. This SSD will continue to monitor for changes in mood and behavior.
--- NOTE | 2024-05-26 13:07 | PC.SS ---
This SSD was informed by night charge nurse resident was complaining and was questioning who called RT about his air cuff. Resident was questioning nurse asking her if a certain PHOTOGRAPHIC REPRODUCTION TECHNICIAN was the one who called RT. Resident was told no and his LIC. Nurse was who called RT. Resident was unhappy and did not want RT to come and address the air cuff. Resident behaviors of him being critical of staff continue, resident is redirected and educated on the importance of informing RT of any issues. This SSD followed up with resident regarding this issue, resident did not have anything to say about it and was quiet during room visit. This SSD will continue to make daily room visits and monitor resident for changes in mood and behavior.
[2024-05-26 13:09] VITALS: PULSE 68; RESP 31; O2SAT 99
[2024-05-26] MEDS: FERROUS SULFATE 220 MG/5 ML ELIXIR 300 MG PO (20:25)
[2024-05-27] VITALS (8 sets, daily range): BP systolic 107–118; BP diastolic 61–79; PULSE 60–90; RESP 19–30; TEMP 36.4–36.8; O2SAT 99–100
[2024-05-28] VITALS: BP 117/61; PULSE 76; RESP 28; TEMP 36.1
[2024-05-28 00:26] VITALS: PULSE 72; RESP 18; O2SAT 99
[2024-05-28 06:00] VITALS: BP 152/88; PULSE 78; RESP 19; TEMP 35.8; O2SAT 96
[2024-05-28 07:16] VITALS: PULSE 74; RESP 20; O2SAT 99
--- NOTE | 2024-05-28 11:02 | PD.SAPROG ---
Progress Note - SubAcute DIAGNOSIS (1) Ventilator dependence: Status: Chronic (2) Limb-girdle muscular dystrophy, type 2B: Status: Chronic (3) Tracheostomy in place: Status: Chronic (4) Chronic respiratory failure with hypoxia and hypercapnia: Status: Chronic (5) G tube feedings: Status: Chronic SUBJECTIVE Fever:: none Shortness of Breath:: none Pain:: none OBJECTIVE Most recent vital signs: Last Vital Signs Temp 96.5 F L 05/28/24 06:00 Pulse 74 05/28/24 07:16 Resp 20 05/28/24 07:16 BP 152/88 H 05/28/24 06:00 Pulse Ox 99 05/28/24 07:16 O2 Del Method Mechanical Ventilation 05/28/24 06:00 FiO2 40 05/28/24 09:44 Neurological:: alert Answers questions:: yes Respiratory:: rhonchi Cardiovascular: RRR Abdomen: soft and nontender Extremities:: deformities (Limb girdle muscle weakness severe due to dystrophy and pt thus bed bound) Tracheostomy:: to ventilator Feeding per:: po Complaints:: none ASSESSMENT & PLAN Assessment: Pt very cooperative. Weaning off ventilator as per protocol continued. no success yet. No complaints. PO intake fair. Weight monitoring done. no pain issues. Pt comfortable and content. Remains active. Pt had urinary retention confirmed with Ultra sound a few days ago and had a catheter placed successfully and bladder training initiated and subsequently DC'd. VSS. Tolerating feeding. Will continue to wean him off the Ventilator as tolerated. Pt started on prn Melatonin for mild insomnia. working well. Plan: treatment and ventilator settings reviewed and continued.
[2024-05-28 12:19] VITALS: PULSE 72; RESP 22; O2SAT 99
[2024-05-28 18:55] VITALS: PULSE 77; RESP 26; O2SAT 100; O2SAT 99
[2024-05-28] MEDS: IPRATROPIUM/ALBUTEROL 3 ML AMPUL.NEB INH (18:55)
[2024-05-29] VITALS: BP 105/72; PULSE 84; RESP 26; TEMP 36.9
[2024-05-29 01:06] VITALS: PULSE 74; RESP 22; O2SAT 99
[2024-05-29 05:41] VITALS: BP 95/59; PULSE 64; RESP 20; TEMP 36.2; O2SAT 99
[2024-05-29 07:56] VITALS: PULSE 78; RESP 20; O2SAT 98; O2SAT 99
[2024-05-29 12:05] VITALS: PULSE 74; RESP 22; O2SAT 98
--- NOTE | 2024-05-29 14:54 | PC.NURSE ---
Resident on Miralax daily and he's been refusing it. Currently on Ferrous sulfate liquid, refused last night as per report due to its taste. Dr Velasquez made aware with order received to d/c miralax due to resident's refusal and to change the iron to tablet.
[2024-05-29 19:04] VITALS: PULSE 81; RESP 27; O2SAT 99
[2024-05-30] VITALS (8 sets, daily range): BP systolic 97–121; BP diastolic 61–77; PULSE 68–82; RESP 20–29; TEMP 36.2–36.6; O2SAT 96–99
--- NOTE | 2024-05-30 15:09 | PC.SS ---
This SSD spoke with resident at bedside, resident was observed to be angry and emotional. This SSD approached him calmly and asked if he wanted to talk about what was bothering him. Resident expressed feelings of frustration and sadness due to health, trach status, family problems and current room situation. This SSD actively listened to resident feelings and concerns, provided reassurance. Resident became emotional and was reminded by this SSD its ok to feel upset and we are all here to support him. Discussed different strategies on coping with concerns he feels he cannot help. After conversation resident seemed to feel somewhat better and thanked this SSD for taking the time to listen and sort through his feelings. This SSD agreed to share his concerns with DON and follow back up with resident to monitor his emotional state and ensure he feels supported.
[2024-05-30] MEDS: NON-FORMULARY *SEE COMMENTS* 1 EA EA 325 EA PO (21:00)
[2024-05-31] VITALS (8 sets, daily range): BP systolic 94–110; BP diastolic 61–74; PULSE 67–91; RESP 19–30; TEMP 36.3–36.6; O2SAT 99–100
--- NOTE | 2024-05-31 11:33 | PC.SS ---
Resident is laying in bed with head of the bed elevated with call light properly placed with no sign of distress. Resident stated he was able to get to sleep easier last night said he is trying not to take prescribed sleep aid. This SSD reminded him if he needs it he should inform his nurse. Resident said he is getting ready to watch movie on phone and probably take nap. Resident appears to be in good spirits with no changes in mood and behavior.
[2024-06-01] VITALS (8 sets, daily range): BP systolic 101–118; BP diastolic 65–77; PULSE 70–87; RESP 17–30; TEMP 36.6–36.9; O2SAT 98–100
--- NOTE | 2024-06-01 00:51 | PC.NURSE ---
resident refused treatment to trach area and bilateral buttock. explained risk and benefits. will endorse to next shift.
--- NOTE | 2024-06-01 13:46 | PC.SS ---
This SSD informed by night charge nurse resident had issues going on with vent alarm during weight shifter. lic nurse went in to check on nurse at which time resident was agitated with nurse over vent alarms and not being able to use his voice. This SSD informed resident has had several encounters with staff and has used abusive language towards staff. DON made aware of this. This SSD and day shift charge nurse went in to speak with resident at bedside, where he spoke of his experience. Resident denies using abusive language towards other staff and only admit to using it with last nights Lic. Nurse. this SSD and day shift charge nurse ensured him the nursing team is here to provide the best care possible and we encouraged the importance of maintain a respectful environment. Resident concerns with the ventilator during sleep hours were validated. Emotional support available to resident as he will accept and need. This SSD has agreed to make communication board for resident to use during the time he is asleep and cannot use his voice. As resident states it is very frustrating for him not to be able to use his voice and have his lips read. This SSD will continue to make contact with resident and will offer support as he will accept.
--- NOTE | 2024-06-01 16:19 | PD.SAPROG ---
Progress Note - SubAcute DIAGNOSIS (1) Ventilator dependence: Status: Chronic (2) Limb-girdle muscular dystrophy, type 2B: Status: Chronic (3) Tracheostomy in place: Status: Chronic (4) Chronic respiratory failure with hypoxia and hypercapnia: Status: Chronic (5) G tube feedings: Status: Chronic SUBJECTIVE Fever:: none Shortness of Breath:: none Pain:: none OBJECTIVE Most recent vital signs: Last Vital Signs Temp 98.4 F 06/01/24 00:00 Pulse 79 06/01/24 12:10 Resp 17 06/01/24 07:05 BP 108/68 06/01/24 00:00 Pulse Ox 99 06/01/24 12:10 O2 Del Method Mechanical Ventilation 05/31/24 06:00 FiO2 40 06/01/24 12:10 Neurological:: alert Answers questions:: yes Respiratory:: rhonchi Cardiovascular: RRR Abdomen: soft and nontender Extremities:: deformities (Limb girdle muscle weakness severe due to dystrophy and pt thus bed bound) Tracheostomy:: to ventilator Feeding per:: po Complaints:: none ASSESSMENT & PLAN Assessment: Pt very cooperative. Weaning off ventilator as per protocol continued. no success yet. No complaints. PO intake fair. Weight monitoring done. no pain issues. Pt comfortable and content. Remains active. Pt had urinary retention confirmed with Ultra sound a few days ago and had a catheter placed successfully and bladder training initiated and subsequently DC'd. VSS. Tolerating feeding. Will continue to wean him off the Ventilator as tolerated. Pt started on prn Melatonin for mild insomnia. working well. no new issues . Family updated from time to time Plan: treatment and ventilator settings reviewed and continued.
[2024-06-01] MEDS: NON-FORMULARY *SEE COMMENTS* 1 EA EA 325 EA PO (20:51)
[2024-06-01] MEDS: MELATONIN 3 MG TABLET PO (21:32)
[2024-06-02] VITALS (9 sets, daily range): BP systolic 99–123; BP diastolic 66–73; PULSE 70–88; RESP 20–28; TEMP 36.1–36.3; O2SAT 98–99
--- NOTE | 2024-06-02 15:08 | PC.SS ---
Room visit: Resident is laying in bed with head of the bed elevated with call light properly placed with no signs of distress. Resident is alert and oriented with clear speech, his decision maker is his mother. Resident has no changes in care or condition he remains on vent with trach in place. Resident will remain in current care and will have all subacute care needs met by staff. Resident has no changes in mood and behavior, this SSD will continue to make daily contact with resident and offer support.
[2024-06-02] MEDS: MELATONIN 3 MG TABLET PO (22:01)
[2024-06-03] VITALS (10 sets, daily range): BP systolic 101–110; BP diastolic 64–74; PULSE 67–82; RESP 20–28; TEMP 36.2–36.9; O2SAT 97–99
[2024-06-03] MEDS: NON-FORMULARY *SEE COMMENTS* 1 EA EA 325 EA PO (20:56)
[2024-06-03] MEDS: MELATONIN 3 MG TABLET PO (20:59)
[2024-06-04] VITALS (7 sets, daily range): BP systolic 93–128; BP diastolic 60–79; PULSE 72–86; RESP 19–28; TEMP 35.9–36.9; O2SAT 98–99
--- NOTE | 2024-06-04 19:07 | PC.NURSE ---
Spoke to resident about preventive treatment to bony prominences. Stated Allevyns were irritating, uncomfortable and itchy at times. Explained that he had a right to refuse them , but they were to protect from skin breakdown and if breakdown occurred, Allevyns would be reinstated. Spoke to Charge Jelena who agreed with plan.
[2024-06-04] MEDS: ACETAMINOPHEN 325 MG TABLET 650 MG PO (23:00)
[2024-06-05] VITALS (7 sets, daily range): BP systolic 103–110; BP diastolic 70–73; PULSE 69–83; RESP 15–24; TEMP 36.7–36.8; O2SAT 98–100
--- NOTE | 2024-06-05 13:43 | PC.SS ---
Resident seen by physical meteorologist Dr. Ellison for routine toe nail trim. No new orders or recommendations to continue current care.
--- NOTE | 2024-06-05 15:38 | PC.SS ---
Room visit: Resident is laying in bed with head of the bed elevated with call light properly placed with no signs of distress. Resident said his father came in for a visit, said he fell asleep during the visit. Resident said he is feeling well and has no concerns. Resident mood seems adequate with no concerns. This SSD will continue to make contact with resident and offer support as he needs.
[2024-06-05] MEDS: NON-FORMULARY *SEE COMMENTS* 1 EA EA 325 EA PO (20:28)
--- NOTE | 2024-06-05 21:07 | PD.SAPROG ---
Progress Note - SubAcute DIAGNOSIS (1) Ventilator dependence: Status: Chronic (2) Limb-girdle muscular dystrophy, type 2B: Status: Chronic (3) Tracheostomy in place: Status: Chronic (4) Chronic respiratory failure with hypoxia and hypercapnia: Status: Chronic (5) G tube feedings: Status: Chronic SUBJECTIVE Fever:: none Shortness of Breath:: none Pain:: none OBJECTIVE Most recent vital signs: Last Vital Signs Temp 98.2 F 06/05/24 18:00 Pulse 73 06/05/24 19:40 Resp 20 06/05/24 19:40 BP 109/73 06/05/24 18:00 Pulse Ox 99 06/05/24 19:40 O2 Del Method Mechanical Ventilation 06/05/24 18:00 FiO2 40 06/05/24 19:40 Neurological:: alert Answers questions:: yes Respiratory:: rhonchi Cardiovascular: RRR Abdomen: soft and nontender Extremities:: deformities (Limb girdle muscle weakness severe due to dystrophy and pt thus bed bound) Tracheostomy:: to ventilator Feeding per:: po Complaints:: none ASSESSMENT & PLAN Assessment: Pt very cooperative. Weaning off ventilator as per protocol continued. no success yet. No complaints. PO intake fair. Weight monitoring done. no pain issues. Pt comfortable and content. Remains active. Pt had urinary retention confirmed with Ultra sound a few days ago and had a catheter placed successfully and bladder training initiated and subsequently DC'd. VSS. Tolerating feeding. Will continue to wean him off the Ventilator as tolerated. Pt started on prn Melatonin for mild insomnia. working well. Pt spiked fever and w/u shows leucocytosis and hence started on IV Rocephin. Difficult access hence started in foot as per attending RN. Plan: treatment and ventilator settings reviewed and continued.
--- NOTE | 2024-06-05 22:48 | PC.NURSE ---
Resident stated it hurts while carefully providing trach care. Asked resident where's the pain at but won't verbalized where's the pain at. Offered pain pill after trach care but resident refused.
[2024-06-06] VITALS (8 sets, daily range): BP systolic 96–115; BP diastolic 66–73; PULSE 70–78; RESP 14–31; TEMP 36.1–37; O2SAT 98–100
--- NOTE | 2024-06-06 04:11 | PC.NURSE ---
Went to resident's room and answer his call light. C/O that his room mate's secretion is smell bad. This commercial real estate underwriter had suctioned resident's room mate and noted with small white thin secretions before resident turned on his call light.
[2024-06-07] VITALS: BP 96/62; PULSE 76; RESP 22; TEMP 36.2
[2024-06-07 01:34] VITALS: PULSE 78; RESP 18; O2SAT 99
[2024-06-07 06:00] VITALS: BP 105/74; PULSE 74; RESP 19; TEMP 36.6; O2SAT 100
[2024-06-07 06:50] VITALS: PULSE 77; RESP 16; O2SAT 99
[2024-06-07 12:27] VITALS: PULSE 73; RESP 24; O2SAT 98
[2024-06-07 18:49] VITALS: PULSE 83; RESP 30; O2SAT 100
[2024-06-08] VITALS (8 sets, daily range): BP systolic 100–144; BP diastolic 63–86; PULSE 73–81; RESP 16–29; TEMP 36.6–37; O2SAT 98–100
--- NOTE | 2024-06-08 13:53 | PC.SS ---
Resident seen by [facility] for oral x-rays, resident tolerated x-rays and was cooperative.
[2024-06-09] VITALS (7 sets, daily range): BP systolic 101–116; BP diastolic 53–71; PULSE 69–79; RESP 8–30; TEMP 36.1–36.7; O2SAT 98–100
--- NOTE | 2024-06-09 15:33 | PD.SAPROG ---
Progress Note - SubAcute DIAGNOSIS (1) Ventilator dependence: Status: Chronic (2) Limb-girdle muscular dystrophy, type 2B: Status: Chronic (3) Tracheostomy in place: Status: Chronic (4) Chronic respiratory failure with hypoxia and hypercapnia: Status: Chronic (5) G tube feedings: Status: Chronic SUBJECTIVE Fever:: none Shortness of Breath:: none Pain:: none OBJECTIVE Most recent vital signs: Last Vital Signs Temp 98.1 F 06/09/24 06:00 Pulse 75 06/09/24 07:35 Resp 26 H 06/09/24 07:35 BP 106/71 06/09/24 06:00 Pulse Ox 99 06/09/24 07:35 O2 Del Method Mechanical Ventilation 06/09/24 06:00 FiO2 40 06/09/24 07:35 Neurological:: alert Answers questions:: yes Respiratory:: rhonchi Cardiovascular: RRR Abdomen: soft and nontender Extremities:: deformities (Limb girdle muscle weakness severe due to dystrophy and pt thus bed bound) Tracheostomy:: to ventilator Feeding per:: po Complaints:: none ASSESSMENT & PLAN Assessment: Pt very cooperative. Weaning off ventilator as per protocol continued. no success yet. No complaints. PO intake fair. Weight monitoring done. no pain issues. Pt comfortable and content. Remains active. Pt had urinary retention confirmed with Ultra sound a few days ago and had a catheter placed successfully and bladder training initiated and subsequently DC'd. VSS. Tolerating feeding. Will continue to wean him off the Ventilator as tolerated. Pt started on prn Melatonin for mild insomnia. working well. Pt spiked fever and w/u shows leucocytosis and hence started on IV Rocephin. Difficult access hence started in foot as per attending RN. Good response to antibiotics, afebrile, VSS Plan: treatment and ventilator settings reviewed and continued.
--- NOTE | 2024-06-09 15:39 | PC.SS ---
Room visit: Resident is laying in bed with head of the bed elevated with call light properly placed with no signs of distress. Resident is well groomed with call light properly placed. Resident has no changes in care and condition, to remain in subacute care and will have all subacute care needs met by staff. SSD will continue to make daily contact with resident and monitor for changes in mood and behavior.
[2024-06-09] MEDS: IPRATROPIUM/ALBUTEROL 3 ML AMPUL.NEB INH (19:35)
[2024-06-09] MEDS: NON-FORMULARY *SEE COMMENTS* 1 EA EA 325 EA PO (21:55)
[2024-06-10] VITALS: BP 106/63; PULSE 79; RESP 26; TEMP 36.6
[2024-06-10 01:32] VITALS: PULSE 68; RESP 21; O2SAT 97
[2024-06-10] MEDS: ACETAMINOPHEN 325 MG TABLET 650 MG PO (03:47)
[2024-06-10 06:00] VITALS: BP 99/63; PULSE 76; RESP 21; TEMP 36.3; O2SAT 98
[2024-06-10 07:07] LABS: Basophils % (Auto) 0 % (0-2.5); Eosinophils # (Auto) 0.2 Thou/mm3 (0.0-0.5); Eosinophils % (Auto) 3 % (0-10); Hemoglobin 12.3 g/dL (13.5-16.0); Immature Granulocytes % (Auto) 1 % (0-0); Immature Granulocytes Auto 0.04 Thou/mm3 (0.00-0.00); Lymphocytes # (Auto) 2.1 Thou/mm3 (1.0-4.8); Lymphocytes % (Auto) 25 % (10-50); Mean Corpuscular HGB Conc 33.2 g/dl (31.0-37.0); Mean Corpuscular Hemoglobin 30.8 pg (25.0-35.0); Mean Corpuscular Volume 93 fL (80-100); Monocytes # (Auto) 0.8 Thou/mm3 (0.0-0.8); Monocytes % (Auto) 10 % (0-12); Neutrophils # (Auto) 5.1 Thou/mm3 (1.8-7.7); Neutrophils % (Auto) 61 % (37-80); Nucleated Red Blood Cell % 0 /100 WBC (0); Platelet Count 228 Thou/mm3 (140-440); RDW Standard Deviation 46.9 fL (35.1-43.9); Red Blood Count 3.99 Miln/mm3 (4.50-5.90); White Blood Count 8.4 Thou/mm3 (3.8-10.6)
[2024-06-10 07:25] VITALS: PULSE 68; RESP 26; O2SAT 99
[2024-06-10 07:47] LABS: Alanine Aminotransferase 24 U/L (10-49); Albumin, Serum 4.4 gm/dL (3.5-5.0); Albumin/Globulin Ratio 1.8 (1.2-2.2); Alkaline Phosphatase 95 U/L (46-116); Anion Gap 9 (7-16); Aspartate Amino Transferase 19 U/L (0-34); BUN/Creatinine Ratio 60 Ratio (12-20); Bilirubin,Total 0.3 mg/dL (0.3-1.2); Blood Urea Nitrogen 12 mg/dL (9-23); Calcium 10.3 mg/dL (8.3-10.6); Calcium (Corrected) 10.3 mg/dL (8.5-10.1); Carbon Dioxide 25.3 mMol/L (20.0-31.0); Chloride 106 mMol/L (98-107); Creatinine (Component) < 0.2 mg/dL (0.6-1.3); Estimated Creatinine Clearance 296.4 mL/min (>60); Globulin 2.5 gm/dL (2.3-3.5); Glucose 80 mg/dL (74-106); Osmolality,Calculated 278 (275-295); Potassium 4.1 mMol/L (3.4-5.1); Sodium 140 mMol/L (136-145); Total Protein 6.9 gm/dL (5.7-8.2); eGFR > 60 See Note
[2024-06-10 13:10] VITALS: PULSE 72; RESP 30; O2SAT 99
[2024-06-10 19:26] VITALS: PULSE 81; RESP 29; O2SAT 99
[2024-06-11] VITALS (8 sets, daily range): BP systolic 96–109; BP diastolic 61–71; PULSE 61–88; RESP 19–28; TEMP 36.3–36.8; O2SAT 95–100
[2024-06-11] MEDS: NON-FORMULARY *SEE COMMENTS* 1 EA EA 325 EA PO (20:23)
[2024-06-12] VITALS (8 sets, daily range): BP systolic 102–123; BP diastolic 60–77; PULSE 60–85; RESP 20–30; TEMP 36.4–36.9; O2SAT 98–100
--- NOTE | 2024-06-12 05:15 | PC.RT ---
pt requested air off cuffed, withdraw 2 ml of air from cuffed pt tolerating well.
--- NOTE | 2024-06-12 14:51 | PC.SS ---
Room visit: Resident is laying in bed with head of the bed elevated with call light properly placed with no signs of distress. Resident mother is at bedside, resident was talking movies and TV shows, enjoying conversation. Resident said he had an ok weekend and id doing well with no questions or concerns. Resident said he would like to move forward with advanced Directive. This SSD explained to resident ombudsman would need to be called to be present during advance directive. This SSD will gather 2 witnesses not affiliated with [facility] and complete advance directive per request of resident. This SSD to follow up with resident and keep him updated on appointment date.
--- NOTE | 2024-06-12 14:57 | PC.SS ---
This SSD called diana to schedule appointment for advance directive, appointment scheduled for June 15 at 1300. This SSD will advance directive completed with resident and will provide copy to resident, health care proxy and send to HIM. Resident and RP notified.
[2024-06-13] VITALS (7 sets, daily range): BP systolic 102–110; BP diastolic 63–70; PULSE 60–82; RESP 18–26; TEMP 36.4–36.6; O2SAT 98–99
[2024-06-13] MEDS: NON-FORMULARY *SEE COMMENTS* 1 EA EA 325 EA PO (21:12)
--- NOTE | 2024-06-13 22:24 | PD.SAPROG ---
Progress Note - SubAcute DIAGNOSIS (1) Ventilator dependence: Status: Chronic (2) Limb-girdle muscular dystrophy, type 2B: Status: Chronic (3) Tracheostomy in place: Status: Chronic (4) Chronic respiratory failure with hypoxia and hypercapnia: Status: Chronic (5) G tube feedings: Status: Chronic SUBJECTIVE Fever:: none Shortness of Breath:: none Pain:: none OBJECTIVE Most recent vital signs: Last Vital Signs Temp 97.6 F 06/13/24 05:20 Pulse 78 06/13/24 19:46 Resp 20 06/13/24 19:46 BP 102/70 06/13/24 05:20 Pulse Ox 98 06/13/24 19:46 O2 Del Method Mechanical Ventilation 06/12/24 17:50 FiO2 40 06/13/24 19:46 Neurological:: alert Answers questions:: yes Respiratory:: rhonchi Cardiovascular: RRR Abdomen: soft and nontender Extremities:: deformities (Limb girdle muscle weakness severe due to dystrophy and pt thus bed bound) Tracheostomy:: to ventilator Feeding per:: po Complaints:: none ASSESSMENT & PLAN Assessment: Pt very cooperative. Weaning off ventilator as per protocol continued. no success yet. No complaints. PO intake fair. Weight monitoring done. no pain issues. Pt comfortable and content. Remains active. Pt had urinary retention confirmed with Ultra sound a few days ago and had a catheter placed successfully and bladder training initiated and subsequently DC'd. VSS. Tolerating feeding. Will continue to wean him off the Ventilator as tolerated. Pt started on prn Melatonin for mild insomnia. working well. Pt spiked fever and w/u shows leucocytosis and hence started on IV Rocephin. Difficult access hence started in foot as per attending RN. Good response to antibiotics, afebrile, VSS Plan: treatment and ventilator settings reviewed and continued.
[2024-06-14] VITALS (10 sets, daily range): BP systolic 98–109; BP diastolic 62–73; PULSE 60–93; RESP 16–30; TEMP 36.5–37; O2SAT 98–100
--- NOTE | 2024-06-14 18:40 | PC.LAC ---
Around 1615 resident was put on blow by, by respiratory staff. Setting are 6L and 28%, O2 saturation been between 98-100%. [employer] Salesperson placed a O2 monitor on resident, noticed his HR was elevated to 102, asked him if he felt any discomfort or respiratory issues like shortness of breath and he denied any discomfort or shortness of breath, also vent is on standby in his room. Will continue to monitor resident closely, call light within reach.
--- NOTE | 2024-06-14 20:00 | PC.NURSE ---
RESIDENT ON BLOW-BY PLACED ON CONTINUOS PULSE OX BY RT FRANCO. NO COMPLAINTS OF DISCOMFORT. HR AT 102. 02 SAT 100%, NO DISTRESS NOTED.
[2024-06-14] MEDS: ACETAMINOPHEN 325 MG TABLET 650 MG PO (21:03)
--- NOTE | 2024-06-14 22:05 | PC.NURSE ---
RESIDENT COMPLAINED OF HEADACHE, REQUESTED TYLENOL FOR PAIN /. GIVEN TYLENOL ORDERED @ 2105. NOTED RESIDENT SLEEPING AFTER AN HOUR. NO DISTRESS NOTED, 02 SAT 100% HR 98.
[2024-06-15] VITALS (8 sets, daily range): BP systolic 105–135; BP diastolic 71–78; PULSE 79–102; RESP 16–33; TEMP 36.2–37; O2SAT 96–100
[2024-06-15] MEDS: IBUPROFEN 100 MG/5 ML ORAL.SUSP 200 MG GT (00:22)
--- NOTE | 2024-06-15 01:20 | PC.NURSE ---
RESIDENT STATES CONTINUOUS TO HAVE HEADACHE. 7/10 PAIN, THROBBING. GIVEN IBUPROFEN X1 ORDERED. NOTED RESIDENT SLEEPING WHEN RE-ASSESSED. NO DISTRESS NOTED, 02 SAT 99%, HR 99.
--- NOTE | 2024-06-15 04:20 | PC.NURSE ---
RESIDENT CALLED STATED HEADACHE IS WORST, FEELS HEART POUNDING. REQUESTED TO BE PLACED BACK ON THE VENT. O2 SAT 100%, HR 105, RR22, NO DISTRESS NOTED. JOAN RAINES PLACED VENT BACK ON RESIDENT. RESIDENT STATES HE FEELS BETTER WITH THE VENT. HR DOWN TO 87. HEADACHE IS BETTER PER RESIDENT. HE ALSO STATES, THE BLOW BY WAS MAKING HIM COLD, AND GIVING HIM BRAIN FREEZE. CONTINUE TO MONITOR.
--- NOTE | 2024-06-15 13:36 | PC.SS ---
This SSD spoke with shiftman charge nurse, she stated resident had a rough night during the time he was on blow by. This SSD asked charge nurse when was he put on blow by and who initiated this process as this SSD was not aware of resident plan to come off of vent. Charge nurse stated resident requested to be weaned off vent yesterday at 1630. Resident did not sleep well through the night and was up in class special education teacher light around the clock as he was feeling anxious. (See RT and nurses notes for further information) This SSD met with resident at bedside with mother present, discussed the plan and goals for resident to be weaned off ventilator. Resident stated I want to be off of everything this SSD asked him what does he hope to accomplish after, resident stated he would like to return home. This SSD asked mother how she felt about this plan and she nodded her head and said she feels the same. Resident stated he was tired did not sleep through the nigh as he did feel anxious. Resident states he would like to continue being weaned off and start capping trial. This SSD informed resident we would update DC plan and will establish goals for DC. This SSD to follow up with resident and monitor for changes in mood and behavior.
--- NOTE | 2024-06-15 13:48 | PC.SS ---
Resident was scheduled to complete advance directive with diana and this SSD today at 1300, resident asked to reschedule his appointment as he felt he did not get enough rest and would not be a good day to complete POA. This SSD notified azaelman via telephone and informed her this would be rescheduled for another date. This SSD will follow up with resident to reschedule for another date and time. Resident mother at bedside during this conversation.
--- NOTE | 2024-06-15 13:53 | PC.SS ---
DC plan: Resident stated to this SSD he would like to be weaned off vent and have trach removed to be able to return home with family. Resident states he will be starting capping trial soon, this SSD to follow up with resident and charge nurse for plan. Resident states when he returns home he will need a bed as he no longer has a bed at home. No DC date made available at this time, this SSD will continue to follow up with care team, resident and RP to come up with a safe DC plan. This SSD will seek appropriate orders from MD once a DC date and plan is in place.
--- NOTE | 2024-06-15 15:16 | PC.SS ---
This SSD notified by slot shift manager charge nurse and slot shift manager POT SANDER of concerns with resident displaying inappropriate behavior towards POT SANDER. This SSD advised staff to document all behaviors and speak with DON of concerns. This SSD attempted to make contact with resident regarding the concerns. Resident stated he did not get much sleep last night, when this SSD returned for a follow up visit resident was sound asleep. This SSD sent email to DON notifying her or concerns. This SSD to follow up with resident regarding concerns.
[2024-06-16] VITALS: BP 103/70; PULSE 80; RESP 13; TEMP 36.2
[2024-06-16 06:00] VITALS: BP 110/76; PULSE 61; RESP 33; TEMP 36.3; O2SAT 100
[2024-06-16 06:50] VITALS: PULSE 72; PULSE 86; RESP 18; O2SAT 100; O2SAT 99
--- NOTE | 2024-06-16 10:57 | PC.SS ---
Room visit: Resident is laying in bed with head of the bed elevated with call light properly placed with no signs of distress. Resident remains on vent with trach in place, charge nurse spoke with RT who stated they will try blow by again. Resident said he is feeling good and rested, he was getting ready to head to activities. Resident is not showing any changes in mood and behavior his mood is adequate seen smiling and engaging in conversation. Resident participates in out of room activities playing game console. This SSD will continue to follow up with resident and will assist with DC planning as appropriate.
[2024-06-16 11:35] VITALS: PULSE 76; RESP 30; O2SAT 99
[2024-06-16 17:00] VITALS: PULSE 76; PULSE 78; RESP 18; RESP 22; O2SAT 100
[2024-06-16 23:47] VITALS: BP 114/79; PULSE 86; RESP 17; TEMP 36.3; O2SAT 100
[2024-06-17 05:26] VITALS: BP 120/71; PULSE 80; RESP 17; TEMP 36.2; O2SAT 100
[2024-06-17 08:24] VITALS: PULSE 80; RESP 12; RESP 14; O2SAT 99
[2024-06-17 11:17] VITALS: BP 109/73; PULSE 90; RESP 36; TEMP 36.1; O2SAT 100
[2024-06-17 14:04] VITALS: PULSE 78; RESP 18; O2SAT 98
[2024-06-17 16:43] VITALS: BP 100/67; PULSE 85; RESP 23; TEMP 36.3
[2024-06-17 16:57] VITALS: PULSE 87; RESP 27; O2SAT 100
--- NOTE | 2024-06-17 20:46 | PD.SAPROG ---
Progress Note - SubAcute DIAGNOSIS (1) Ventilator dependence: Status: Chronic (2) Limb-girdle muscular dystrophy, type 2B: Status: Chronic (3) Tracheostomy in place: Status: Chronic (4) Chronic respiratory failure with hypoxia and hypercapnia: Status: Chronic (5) G tube feedings: Status: Chronic SUBJECTIVE Fever:: none Shortness of Breath:: none Pain:: none OBJECTIVE Most recent vital signs: Last Vital Signs Temp 97.4 F 06/17/24 16:43 Pulse 87 06/17/24 16:57 Resp 27 H 06/17/24 16:57 BP 100/67 06/17/24 16:43 Pulse Ox 100 06/17/24 16:57 O2 Del Method Mechanical Ventilation 06/17/24 11:17 O2 Flow Rate 6 06/17/24 11:17 FiO2 40 06/17/24 16:57 Neurological:: alert Answers questions:: yes Respiratory:: rhonchi Cardiovascular: RRR Abdomen: soft and nontender Extremities:: deformities (Limb girdle muscle weakness severe due to dystrophy and pt thus bed bound) Tracheostomy:: to ventilator Feeding per:: po Complaints:: none ASSESSMENT & PLAN Assessment: Pt very cooperative. Weaning off ventilator as per protocol continued. no success yet. No complaints. PO intake fair. Weight monitoring done. no pain issues. Pt comfortable and content. Remains active. Pt had urinary retention confirmed with Ultra sound a few days ago and had a catheter placed successfully and bladder training initiated and subsequently DC'd. VSS. Tolerating feeding. Will continue to wean him off the Ventilator as tolerated. Pt started on prn Melatonin for mild insomnia. working well. Pt spiked fever and w/u shows leucocytosis and hence started on IV Rocephin. Difficult access hence started in foot as per attending RN. Good response to antibiotics, afebrile, VSS Plan: treatment and ventilator settings reviewed and continued. Tried on weaning mode for a trial but did not tolerated it and wanted to be back on the Ventilator and so done . Will try again after a few days.
[2024-06-17] MEDS: NON-FORMULARY *SEE COMMENTS* 1 EA EA 325 EA PO (21:03)
[2024-06-18] VITALS (8 sets, daily range): BP systolic 100–123; BP diastolic 61–83; PULSE 66–92; RESP 20–34; TEMP 36.2–36.6; O2SAT 97–100
--- NOTE | 2024-06-18 14:34 | PC.NURSE ---
Patient was talking inappropriately (i.e. talking about his private parts to COMPUTER COMPOSITOR on duty) and being inappropriate during change and repositioning (i.e. touching hands and hips of COMPUTER COMPOSITOR on duty). Charge nurse was informed of patient's behavior during shift. No other complaints noted. Call light within reach of patient. Call lights answered in timely matter during shift. Will continue with current plan of care.
[2024-06-18] MEDS: MELATONIN 3 MG TABLET PO (22:34)
[2024-06-19] VITALS (8 sets, daily range): BP systolic 94–99; BP diastolic 63–66; PULSE 72–79; RESP 16–36; TEMP 36.2–36.9; O2SAT 99–100
[2024-06-19] MEDS: NON-FORMULARY *SEE COMMENTS* 1 EA EA 325 EA PO (21:41)
[2024-06-20] VITALS (8 sets, daily range): BP systolic 102–134; BP diastolic 60–86; PULSE 68–91; RESP 16–36; TEMP 36.1–36.6; O2SAT 99–100
--- NOTE | 2024-06-20 00:59 | PC.NURSE ---
During 1844 round patient was asking to be cleaned on his testicles three times. After cleaning his testicles multiple time as he requested he proceeded to say now rub it three times for good luck talking about his penis. Told patient that was not appropriate. During the 1999 round patient was stating his testicles were still very itchy so he needed me to clean them again several times. After changing him and throwing out his dirty wash cloths into dirty linen barrel he proceeds to tell me this is how big it gets while turning his phone and showing me a penis photograph on his cellphone.
--- NOTE | 2024-06-20 10:51 | PC.SS ---
This SSD was informed by operations supervisor 2nd shift SPAR CAP BEVELER of an incident involving resident during care. According to SPAR CAP BEVELER resident had inappropriate request and made comments while she was assisting him with hygiene. SPAR CAP BEVELER immediately informed nurse on the group and charge nurse about the incident. After speaking with SPAR CAP BEVELER she informed this SSD this was the first time experiencing this behavior, resident said she did indicate to resident she felt uncomfortable and left the room. This SSD did inform DON, DSD and IP nurse of incident and shared SPAR CAP BEVELER note via email. SSD will work with DON, and IP to meet with resident and explain the importance of maintaining respectful and appropriate interactions with all staff. Follow up to follow.
--- NOTE | 2024-06-20 15:55 | PC.NURSE ---
Our Director talk to the resident about the in appropriate behavior he showed to the staff and, resident accept those behavior and promised it wont happen again.
[2024-06-21 01:22] VITALS: PULSE 67; RESP 20; O2SAT 97
--- NOTE | 2024-06-21 05:57 | PC.NURSE ---
patient called and asked RT to put air in cuff due to vent alarm, few minutes later, patient asked RT to take air out from cuff due to being uncomforble. RT was notified right away, due to RT not being on the floor department, patient reached out to mom twice about the situation. mom called charge nurge regarding son's needs. nurse talked to mom and explained that RT was already notified. patient refused vital signs to be taken @midnight and @0600. Patient refused to be reposition @0400. patient called, LOAD PLANNER and nurse answered call light at a timely manner at approx. 0545 to be repositioned, LOAD PLANNER asked patient if he wants to be change as LOAD PLANNER noticed he was visually soiled and patient refused to be changed at this point.
--- NOTE | 2024-06-21 05:58 | PC.NURSE ---
Patient called to be repositioned, during this time patients brief was visually soiled. Asked patient if he wanted to be changed he said no . Asked if he was sure and he stated yes .
[2024-06-21 06:30] VITALS: PULSE 82; PULSE 84; RESP 23; O2SAT 99
[2024-06-21 12:00] VITALS: BP 117/77; PULSE 84; RESP 28; TEMP 37.3
[2024-06-21 12:53] VITALS: PULSE 90; RESP 25; O2SAT 99
--- NOTE | 2024-06-21 13:47 | PC.SS ---
this SSD informed by TORRES, JONATHAN, charge nurse and DSD met with resident at bedside to discuss the inappropriate behavior with staff. DSD said she felt conversation went well and resident did acknowledge his inappropriate behavior with staff. This SSD will follow up with resident and monitor his behavior.
--- NOTE | 2024-06-21 13:51 | PC.SS ---
This SSD followed up with resident his mother was at bedside. Resident appears to be upset and not willing to talk, he said he was not comfortable talking about it. Discussed resident with resident his progress with his plans to be weaned off vent and eventually being on blow by. Resident said he had a hard night and could not sleep well as he had other things on his mind. Resident then opened up about the conversation he had with DON regarding the inappropriate behavior. Resident stated he felt embarrassed and did not want to face the staff who reported the incident. Resident said it was a joke and said staff jokes with him and he felt he could continue the behavior. Resident discussed the inappropriate photo on his phone, he stated the photo is 3 years old and he took it when he was home and had more use of his hands. Resident assured this SSD he deleted the photo as it caused problems. Resident stated he feels uncomfortable he wants to move to another facility but his mother will not allow it. Resident mother said he will get passed this behavior and does not need to move but rather start over. Resident has agreed to do a check in in 1 week to re-evaluate his request to be moved to another facility. Resident stated he wishes to not have the staff that reported him on his service as he does not want to face them, he expressed feeling angry at them this SSD informed him this request would be shared with DON and TORRES and one of us would follow up with him. During conversation resident became emotional and agreed he would not have any inappropriate interactions with staff. This SSD will continue to make daily contact with resident and monitor moods and behavior.
--- NOTE | 2024-06-21 14:12 | PC.SS ---
This SSD and DSD followed up with resident regarding his request to remove certain staff form his service. DON has agreed with a temporary agreement to remove the said staff and asked resident to be notified. This SSD and DSD went to resident to notify him of his request, resident was being fed his lunch when we went in to speak with him. resident notified by DSD this would be a temporary agreement to remove the staff but at some point the staff would possibly return to his service. Resident said ok this SSD to follow up with resident to ensure he is pleased with arrangement.
--- NOTE | 2024-06-21 14:55 | PD.SAPROG ---
Progress Note - SubAcute DIAGNOSIS (1) Ventilator dependence: Status: Chronic (2) Limb-girdle muscular dystrophy, type 2B: Status: Chronic (3) Tracheostomy in place: Status: Chronic (4) Chronic respiratory failure with hypoxia and hypercapnia: Status: Chronic (5) G tube feedings: Status: Chronic SUBJECTIVE Fever:: none Shortness of Breath:: none Pain:: none OBJECTIVE Most recent vital signs: Last Vital Signs Temp 97.4 F 06/25/24 18:00 Pulse 111 H 06/25/24 18:00 Resp 28 H 06/25/24 18:00 BP 104/67 06/25/24 18:00 Pulse Ox 99 06/25/24 18:00 O2 Del Method Mechanical Ventilation 06/25/24 18:00 O2 Flow Rate 6 06/24/24 05:43 FiO2 40 06/25/24 22:00 Neurological:: alert Answers questions:: yes Respiratory:: rhonchi Cardiovascular: RRR Abdomen: soft and nontender Extremities:: deformities (Limb girdle muscle weakness severe due to dystrophy and pt thus bed bound) Tracheostomy:: to ventilator Feeding per:: po Complaints:: none ASSESSMENT & PLAN Assessment: Pt very cooperative. Weaning off ventilator as per protocol continued. no success yet. No complaints. PO intake fair. Weight monitoring done. no pain issues. Pt comfortable and content. Remains active. Pt had urinary retention confirmed with Ultra sound a few days ago and had a catheter placed successfully and bladder training initiated and subsequently DC'd. VSS. Tolerating feeding. Will continue to wean him off the Ventilator as tolerated. Pt started on prn Melatonin for mild insomnia. working well. Pt spiked fever and w/u shows leucocytosis and hence started on IV Rocephin. Difficult access hence started in foot as per attending RN. Good response to antibiotics, afebrile, VSS Plan: treatment and ventilator settings reviewed and continued. Tried on weaning mode for a trial but did not tolerated it and wanted to be back on the Ventilator and so done . Will try again after a few days.
--- NOTE | 2024-06-21 16:03 | PC.SS ---
Resident requested this SSD to speak with him, this SSD went to bedside where resident stated he feels depressed and has been feeling this way for over a month now. This SSD asked resident why this is the first mention of this, resident said he has been trying to fight his feelings and after the incident with staff and him having a hard time transitioning to coming off vent he feels the weight of the sadness coming on harder. Resident was emotional and tearful, resident said he does not want to depend on medications but feels he may need an antidepressant for a few weeks to help him. Resident said he is not sleeping well at night and does not wish to share his feeling with his mother or brother as he feels they will vacuum worker him. This SSD was at bedside until resident was no longer emotional and crying, resident agreed to revisit the topic tomorrow morning before calling MD to ask for an antidepressant. This SSD informed charge nurse and spoke with DON of other strategies for resident before medication. DON has agreed to revisit conversation tomorrow after speaking with resident. This SSD to follow up with resident and monitor for changes in mood and behavior.
[2024-06-21 18:00] VITALS: BP 117/78; PULSE 84; RESP 30; TEMP 37.1; O2SAT 98
[2024-06-21 20:04] VITALS: PULSE 67; RESP 24; O2SAT 99
[2024-06-21] MEDS: NON-FORMULARY *SEE COMMENTS* 1 EA EA 325 EA PO (21:33)
[2024-06-22] VITALS (8 sets, daily range): BP systolic 96–108; BP diastolic 56–73; PULSE 64–86; RESP 20–34; TEMP 36.4–36.8; O2SAT 98–100
--- NOTE | 2024-06-22 15:17 | PC.SS ---
This SSD followed up with resident, he was seen in activity room playing his video game. When resident returned to his room this SSD visited him there where we talked about his night and how his day was going. Resident said he slept some but kept waking up thinking. Resident says he struggles with the inability to make his brain stop and get to sleep. Resident said he believes his depression started during the holidays, being the first away from his family and home. Resident said he does not want to depend on medication but feels he needs help from medication at this time. This SSD spoke with resident about his feelings and encouraged resident to express himself openly and freely. This SSD assured resident charge nurse would be notified and would call MD. Charge nurse made aware. This SSD to follow up with resident and monitor mood and behavior.
--- NOTE | 2024-06-22 16:01 | PC.NURSE ---
Called Dr. Velasquez and informed resident was feeling depressed and having difficulty sleeping, and MD. was informed resident was taking remeron before, and . order doxepin 3mg 30mins before sleep x 7 days then re-eval., order noted and carried out.
[2024-06-22] MEDS: IPRATROPIUM/ALBUTEROL 3 ML AMPUL.NEB INH (19:25)
[2024-06-22] MEDS: MELATONIN 3 MG TABLET PO (20:51)
[2024-06-23] VITALS (8 sets, daily range): BP systolic 96–106; BP diastolic 62–74; PULSE 73–99; RESP 20–44; TEMP 36.2–37; O2SAT 97–100
--- NOTE | 2024-06-23 10:18 | PC.NURSE ---
This remote mortgage underwriter and SS went to resident's room to get consent for resident's Doxepin. Explained to resident about the said medication. Resident is aware of the new medication. He added that he mentioned to his brother and his mom about it . Resident decided/refused to take the medication and just continue his Melatonin . He also added that he felt better at this time. Called Dr Velasquez and made aware of it, order received to discontinue the Doxepin due to resident's refusal and continue the melatonin as needed.
--- NOTE | 2024-06-23 11:27 | PC.SS ---
This SSD and charge nurse went on speak with resident regarding his request to be put on medication as he states he feels depressed and has felt this way since the holidays. resident stated he had a visit from his brother yesterday. Resident said he and his brother discussed him starting medication, his brother convinced him to do without medication and try other ways to cope. Resident said he looks up to his brother and will take his advice. Charge nurse went over consent with resident for medication ordered by MD, resident declined and said after speaking with his brother he decided he no longer needed the medication. Charge nurse said she will notify MD and DC order. This SSD will continue to follow up with resident and monitor for changes in mood and behavior. Resident will be offered support by this SSD daily.
--- NOTE | 2024-06-23 14:51 | PC.SS ---
Room visit: Resident is laying in bed with head of the bed elevated with call light properly placed with no signs of distress. Resident has no changes in condition, remains on vent with trach in place and GT for medication and nutrition. Resident is able to make needs known, he is alert and oriented able to make decisions for self. Resident will remain in current care and will continue to have all subacute care needs met by staff. This SSD will make daily contact with resident and will monitor for changes in mood and behavior
[2024-06-23] MEDS: NON-FORMULARY *SEE COMMENTS* 1 EA EA 325 EA PO (20:16)
[2024-06-23] MEDS: MELATONIN 3 MG TABLET PO (20:16)
[2024-06-24] VITALS (9 sets, daily range): BP systolic 94–107; BP diastolic 57–67; PULSE 75–95; RESP 17–40; TEMP 36.1–36.8; O2SAT 99–100
--- NOTE | 2024-06-24 05:04 | PC.NURSE ---
resident was changed and reposition at 1845 when HEAD TENNIS COACH came on shift. called to reposition, HEAD TENNIS COACH answered call light in a timely manner,two staff members went in the room together, asked resident if he needed to be changed he stated no that I do not need to be changed. Resident called after 0500 to be changed.
[2024-06-24] MEDS: MELATONIN 3 MG TABLET PO (23:21)
[2024-06-24] MEDS: ACETAMINOPHEN 325 MG TABLET 650 MG PO (23:21)
[2024-06-25] VITALS (8 sets, daily range): BP systolic 102–112; BP diastolic 67–70; PULSE 80–111; RESP 21–34; TEMP 36.1–36.4; O2SAT 98–100
[2024-06-25] MEDS: NON-FORMULARY *SEE COMMENTS* 1 EA EA 325 EA PO (20:24)
[2024-06-25] MEDS: MELATONIN 3 MG TABLET PO (21:33)
--- NOTE | 2024-06-25 22:47 | PD.SAPROG ---
Progress Note - SubAcute DIAGNOSIS (1) Ventilator dependence: Status: Chronic (2) Limb-girdle muscular dystrophy, type 2B: Status: Chronic (3) Tracheostomy in place: Status: Chronic (4) Chronic respiratory failure with hypoxia and hypercapnia: Status: Chronic (5) G tube feedings: Status: Chronic SUBJECTIVE Fever:: none Shortness of Breath:: none Pain:: none OBJECTIVE Most recent vital signs: Last Vital Signs Temp 97.4 F 06/25/24 18:00 Pulse 111 H 06/25/24 18:00 Resp 28 H 06/25/24 18:00 BP 104/67 06/25/24 18:00 Pulse Ox 99 06/25/24 18:00 O2 Del Method Mechanical Ventilation 06/25/24 18:00 O2 Flow Rate 6 06/24/24 05:43 FiO2 40 06/25/24 22:00 Neurological:: alert Answers questions:: yes Respiratory:: rhonchi Cardiovascular: RRR Abdomen: soft and nontender Extremities:: deformities (Limb girdle muscle weakness severe due to dystrophy and pt thus bed bound) Tracheostomy:: to ventilator Feeding per:: po Complaints:: none ASSESSMENT & PLAN Assessment: Pt very cooperative. Weaning off ventilator as per protocol continued. no success yet. No complaints. PO intake fair. Weight monitoring done. no pain issues. Pt comfortable and content. Remains active. Pt had urinary retention confirmed with Ultra sound a few days ago and had a catheter placed successfully and bladder training initiated and subsequently DC'd. VSS. Tolerating feeding. Will continue to wean him off the Ventilator as tolerated. Pt started on prn Melatonin for mild insomnia. working well. Pt spiked fever and w/u shows leucocytosis and hence started on IV Rocephin. Difficult access hence started in foot as per attending RN. Good response to antibiotics, afebrile, VSS Plan: treatment and ventilator settings reviewed and continued. Tried on weaning mode for a trial but did not tolerate it and wanted to be back on the Ventilator and so done . fairly stable, vss
[2024-06-26] VITALS (7 sets, daily range): BP systolic 100–121; BP diastolic 70–81; PULSE 78–94; RESP 20–36; TEMP 36.7–37.1; O2SAT 97–100
[2024-06-26] MEDS: ACETAMINOPHEN 325 MG TABLET 650 MG PO (04:11)
--- NOTE | 2024-06-26 10:28 | PC.SS ---
This SSD followed up with resident. Resident is seen laying in bed with head of the bed elevated with call light properly placed with no signs of distress. Resident said he is doing ok and said his weekend was ok. Resident stated does well as long as he does not have to talk about his incident with staff. This SSD reminded to express his feeling openly and freely. Resident is reminded he can speak with SSD when needed. This SSD will continue to make daily contact with resident and monitor him for changes in mood and behavior.
[2024-06-27] VITALS (8 sets, daily range): BP systolic 94–106; BP diastolic 58–70; PULSE 79–126; RESP 19–40; TEMP 36.4–37; O2SAT 97–100
--- NOTE | 2024-06-27 13:48 | PC.SS ---
This SSD followed up with resident, he appeared more quiet today and said his morning was ok. Resident was not engaging in conversation and said he has been sleeping well. This SSD will continue to make daily contact with resident and will offer support as he will accept.
[2024-06-27] MEDS: ACETAMINOPHEN 325 MG TABLET 650 MG PO (17:31)
[2024-06-27] MEDS: NON-FORMULARY *SEE COMMENTS* 1 EA EA 325 EA PO (20:17)
[2024-06-28] VITALS (10 sets, daily range): BP systolic 97–109; BP diastolic 62–75; PULSE 70–113; RESP 28–36; TEMP 36.3–38.9; O2SAT 93–100
[2024-06-28] MEDS: ACETAMINOPHEN 325 MG TABLET 650 MG PO ×2 (04:17→17:20)
--- NOTE | 2024-06-28 13:31 | PC.SS ---
This SSD followed up with resident, he is seen laying in bed watching a program on phone. Resident said he is not feeling well said he has a sore throat. charge nurse aware. Resident stated he was in and out of sleep and hopes he will feel better soon.
[2024-06-28 18:20] LABS: Basophils % (Auto) 0 % (0-2.5); Eosinophils % (Auto) 0 % (0-10); Hematocrit 34.3 % (41.0-53.0); Hemoglobin 11.5 g/dL (13.5-16.0); Immature Granulocytes % (Auto) 0 % (0-0); Immature Granulocytes Auto 0.08 Thou/mm3 (0.00-0.00); Lymphocytes # (Auto) 1.6 Thou/mm3 (1.0-4.8); Lymphocytes % (Auto) 8 % (10-50); Mean Corpuscular HGB Conc 33.5 g/dl (31.0-37.0); Mean Corpuscular Hemoglobin 30.8 pg (25.0-35.0); Mean Corpuscular Volume 92 fL (80-100); Monocytes # (Auto) 1.5 Thou/mm3 (0.0-0.8); Monocytes % (Auto) 8 % (0-12); Neutrophils # (Auto) 15.6 Thou/mm3 (1.8-7.7); Neutrophils % (Auto) 83 % (37-80); Nucleated Red Blood Cell % 0 /100 WBC (0); Platelet Count 238 Thou/mm3 (140-440); RDW Standard Deviation 47.5 fL (35.1-43.9); Red Blood Count 3.73 Miln/mm3 (4.50-5.90); White Blood Count 18.8 Thou/mm3 (3.8-10.6)
[2024-06-28] MEDS: IPRATROPIUM/ALBUTEROL 3 ML AMPUL.NEB INH (18:25)
--- NOTE | 2024-06-28 18:29 | PC.NURSE ---
Resident had a temp. of 102, resident refused to do cooling measure, tylenol was given . made aware, order temp. protocol, order noted and carried out we will continue to monitor recheck temp. and it was 100.7.
[2024-06-28 18:45] LABS: Influenza A Ag Negative; Influenza B Ag Negative
[2024-06-28 18:45] LABS: Procalcitonin 0.16 ng/ml (0.0-0.49)
[2024-06-28 18:45] LABS: COVID-19 Antigen (In-House) Negative (Negative)
--- NOTE | 2024-06-28 19:13 | PC.NURSE ---
I told to to the resident that i will call his mom to let her know that he has a fever, and he told me he already told to his mom.
--- NOTE | 2024-06-28 19:25 | PC.NURSE ---
Resident is awake and alert, states that he does not feel well, complaining of a mild sore throat. Temperature taken, Temperature was taken, 102. was given Tylenol 650mg. reported to the Charge nurse, Fallon. will continue to monitor.
[2024-06-28 19:37] LABS: Collection Type, Urine Clean Catch; Squamous Epithelial Cell,Urine 0 /hpf (0-5); WBC,Urine 0 /hpf (0-5)
[2024-06-28 20:38] LABS: Bacteria,Urine Rare; Bilirubin,Urine Negative (Negative); Blood,Urine Negative (Negative); Clarity,Urine Clear (Clear/Hazy); Color,Urine Colorless (Lt Yel-Yel); Glucose, Urine Negative (Negative); Ketones,Urine Negative (Negative); Leukocyte Esterase,Urine Negative (Negative); Nitrite,Urine Negative (Negative); Protein,Urine Negative (Neg - Trace); RBC,Urine < 1 /hpf (0-3); Specific Gravity,Urine 1.003 (1.001-1.035); Urobilinogen,Urine Negative mg/dL (0.0-1.0)
[2024-06-28] MEDS: AZITHROMYCIN 250 MG TABLET PO (21:30)
--- NOTE | 2024-06-28 21:51 | PC.NURSE ---
DR. RIZZO MADE AWARE RESIDENT HAD FEVER, WITH COMPLAINT OF SORE THROAT. REVIEW LAB RESULTS WITH MD @2100. NEW ORDER RECEIVED FOR AZITHROMYCIN X5 DAYS, FIRST DAY 250MG EVERY 12 HOURS X2 DOSES THEN 250MG DAILY FOR FOUR DAYS. CURRENT VITALS 98.8 ORALLY, 102/67, 96, RR 28, 02 SAT 100%. RESIDENT MADE AWARE OF NEW ORDERS AND POC. HE STATES HE WILL LET HIS MOTHER KNOW OF TREATMENT ORDERED.
[2024-06-29] VITALS (9 sets, daily range): BP systolic 101–120; BP diastolic 63–80; PULSE 94–107; RESP 21–36; TEMP 36.2–39; O2SAT 94–100
--- NOTE | 2024-06-29 06:41 | PC.NURSE ---
No adverse reaction noted from Azithromycin for strep throat . Denies any pain or discomfort. Afebrile throughout the shift.
[2024-06-29] MEDS: AZITHROMYCIN 250 MG TABLET PO ×2 (09:19→21:14)
--- NOTE | 2024-06-29 10:55 | PD.SAPROG ---
Progress Note - SubAcute DIAGNOSIS (1) Ventilator dependence: Status: Chronic (2) Limb-girdle muscular dystrophy, type 2B: Status: Chronic (3) Tracheostomy in place: Status: Chronic (4) Chronic respiratory failure with hypoxia and hypercapnia: Status: Chronic (5) G tube feedings: Status: Chronic SUBJECTIVE Fever:: none Shortness of Breath:: none Pain:: none OBJECTIVE Most recent vital signs: Last Vital Signs Temp 97.1 F 06/29/24 06:00 Pulse 94 06/29/24 06:00 Resp 26 H 06/29/24 06:00 BP 120/80 06/29/24 06:00 Pulse Ox 98 06/29/24 06:00 O2 Del Method Mechanical Ventilation 06/29/24 06:00 O2 Flow Rate 6 06/24/24 05:43 FiO2 40 06/29/24 00:18 Neurological:: alert Answers questions:: yes Respiratory:: rhonchi Cardiovascular: RRR Abdomen: soft and nontender Extremities:: deformities (Limb girdle muscle weakness severe due to dystrophy and pt thus bed bound) Tracheostomy:: to ventilator Feeding per:: po Complaints:: none ASSESSMENT & PLAN Assessment: Pt very cooperative. Weaning off ventilator as per protocol continued. no success yet. No complaints. PO intake fair. Weight monitoring done. no pain issues. Pt comfortable and content. Remains active. Pt had urinary retention confirmed with Ultra sound a few days ago and had a catheter placed successfully and bladder training initiated and subsequently DC'd. VSS. Tolerating feeding. Will continue to wean him off the Ventilator as tolerated. Pt started on prn Melatonin for mild insomnia. working well. Pt spiked fever and w/u shows leucocytosis and hence started on IV Rocephin. Difficult access hence started in foot as per attending RN. Good response to antibiotics, Now afebrile, VSS Plan: treatment and ventilator settings reviewed and continued. Tried on weaning mode for a trial but did not tolerate it and wanted to be back on the Ventilator and so done . fairly stable, vss
[2024-06-29] MEDS: ACETAMINOPHEN 325 MG TABLET 650 MG PO (17:09)
[2024-06-29] MEDS: IPRATROPIUM/ALBUTEROL 3 ML AMPUL.NEB INH (18:29)
--- NOTE | 2024-06-29 19:36 | ESPR_ITS ---
Progress Note - SubAcute DIAGNOSIS (1) Ventilator dependence: Status: Chronic (2) Limb-girdle muscular dystrophy, type 2B: Status: Chronic (3) Tracheostomy in place: Status: Chronic (4) Chronic respiratory failure with hypoxia and hypercapnia: Status: Chronic (5) G tube feedings: Status: Chronic SUBJECTIVE Fever:: none Shortness of Breath:: none Pain:: none OBJECTIVE Most recent vital signs: Last Vital Signs Temp 102.2 F H 06/29/24 17:36 Pulse 107 H 06/29/24 17:36 Resp 35 H 06/29/24 17:36 BP 101/68 06/29/24 17:36 Pulse Ox 98 06/29/24 17:36 O2 Del Method Mechanical Ventilation 06/29/24 17:36 O2 Flow Rate 6 06/24/24 05:43 FiO2 40 06/29/24 13:14 Neurological:: alert Answers questions:: yes Respiratory:: rhonchi Cardiovascular: RRR Abdomen: soft and nontender Extremities:: deformities (Limb girdle muscle weakness severe due to dystrophy and pt thus bed bound) Tracheostomy:: to ventilator Feeding per:: po Complaints:: none ASSESSMENT & PLAN Assessment: Pt very cooperative. Weaning off ventilator as per protocol continued. no success yet. No complaints. PO intake fair. Weight monitoring done. no pain issues. Pt comfortable and content. Remains active. Pt had urinary retention confirmed with Ultra sound a few days ago and had a catheter placed successfully and bladder training initiated and subsequently DC'd. VSS. Tolerating feeding. Will continue to wean him off the Ventilator as tolerated. Pt started on prn [place] atonin for mild insomnia. working well. Pt spiked fever and w/u shows leucocytosis and hence started on IV Rocephin. Difficult access hence started in foot as per attending RN. Good response to antibiotics, Now afebrile, VSS Plan: treatment and ventilator settings reviewed and continued. Tried on weaning mode for a trial but did not tolerate it and wanted to be back on the Ventilator and so done . fairly stable, vss
[2024-06-29] MEDS: NON-FORMULARY *SEE COMMENTS* 1 EA EA 325 EA PO (21:14)
--- NOTE | 2024-06-29 23:09 | PC.NURSE ---
Resident continues on antibiotics due to elevated temps and c/o sore throat. No adverse reaction noted. Vital signs within normal limits at this time. Fluids encourage PO. Denies pain at this time, however resident states he just doesn't feel himself. No cough noted, vent remains in use with settings at AC 8, tidal volume 300 and 40% FiO2. Voiding with no difficulty or c/o dysuria. Call light within reach.
[2024-06-30] VITALS (8 sets, daily range): BP systolic 104–118; BP diastolic 70–78; PULSE 85–117; RESP 20–35; TEMP 36.4–37; O2SAT 97–100
--- NOTE | 2024-06-30 01:26 | PC.NURSE ---
Residents vent noted alarming, RT assessed and informed resident of need for air to be added to his cuff to ensure he is receiving enough pressure/volumes. Resident asked RT does everyone get air? RT educated resident on why air was needed and air applied to cuff. Resident later called asking for RT to remove air from his cuff. This nurse called RT and entered room with RT and PHYSICAL EDUCATION INSTRUCTOR. RT attempted to educate resident on why the air was needed with resident stating, I don't give a fuck take it out, I'm ready to already! Reassurance provided to resident, however he continued to be upset wanting to be left alone. Charge nurse notified of behavior.
--- NOTE | 2024-06-30 03:49 | PC.RT ---
PT requested air removed from cuff. PT informed air was placed in cuff due to low tidal volumes in the 50's and the risk with not getting adequate volume. PT stated he don't give a fuck and that he was ready to . air removed from cuff at PT request. DARIEN Scherer at Bedside and aware.
--- NOTE | 2024-06-30 06:07 | PC.NURSE ---
Resident noted with no void since 1999. Explained to resident that this nurse needed to assess his bladder and do a bladder scan. Resident stated no I will pee when I am ready I just want to sleep. Encouraged resident to drink more fluids with 60cc taken.
[2024-06-30] MEDS: AZITHROMYCIN 250 MG TABLET PO ×2 (08:52→20:26)
[2024-06-30] MEDS: IPRATROPIUM/ALBUTEROL 3 ML AMPUL.NEB INH (12:30)
[2024-06-30] MEDS: ACETAMINOPHEN 325 MG TABLET 650 MG PO (17:17)
[2024-07-01] VITALS (9 sets, daily range): BP systolic 102–120; BP diastolic 62–79; PULSE 77–117; RESP 30–35; TEMP 36.4–38.5; O2SAT 96–100
[2024-07-01] MEDS: IBUPROFEN 100 MG/5 ML ORAL.SUSP 200 MG GT (00:45)
--- NOTE | 2024-07-01 06:12 | XR_ITS ---
Examination: AP chest single view Technique one AP portable semiupright chest single view Exam date and time: 2024 at 0604 hours INDICATION: Chest tightness today. FINDINGS: Significant pneumonia in the right middle lobe and right lower lobe Normal heart size Left lung clear Tracheostomy tube tip 7.3 cm above daryl IMPRESSION: Significant right lung pneumonia, follow-up imaging recommended to document clearing and exclude underlying pulmonary mass in the right lower lobe
[2024-07-01] MEDS: AZITHROMYCIN 250 MG TABLET PO (10:00)
[2024-07-01 13:24] LABS: Basophils # (Auto) 0.1 Thou/mm3 (0.0-0.2); Basophils % (Auto) 0 % (0-2.5); Eosinophils # (Auto) 0.1 Thou/mm3 (0.0-0.5); Eosinophils % (Auto) 1 % (0-10); Hematocrit 35.7 % (41.0-53.0); Immature Granulocytes % (Auto) 0 % (0-0); Immature Granulocytes Auto 0.07 Thou/mm3 (0.00-0.00); Lymphocytes # (Auto) 1.3 Thou/mm3 (1.0-4.8); Lymphocytes % (Auto) 8 % (10-50); Mean Corpuscular HGB Conc 33.6 g/dl (31.0-37.0); Mean Corpuscular Hemoglobin 30.3 pg (25.0-35.0); Mean Corpuscular Volume 90 fL (80-100); Monocytes # (Auto) 1.2 Thou/mm3 (0.0-0.8); Monocytes % (Auto) 8 % (0-12); Neutrophils # (Auto) 13.3 Thou/mm3 (1.8-7.7); Neutrophils % (Auto) 83 % (37-80); Nucleated Red Blood Cell % 0 /100 WBC (0); Platelet Count 328 Thou/mm3 (140-440); RDW Standard Deviation 45.7 fL (35.1-43.9); Red Blood Count 3.96 Miln/mm3 (4.50-5.90); White Blood Count 16.1 Thou/mm3 (3.8-10.6)
--- NOTE | 2024-07-01 16:06 | PC.LAC ---
Resident with an order of Azithromycin 250 mg 1 tablet every 12 hours x 2 doses then 1 tablet daily x 4 days which will on the . When about to give the dose this morning, resident noted to have only 1 tablet left. Checked on JUN medication documentation , medicine was given every 12 hours x [address] Velasquez and made aware of it and he said to give the last tablet and discontinue the order. Talked to the resident and made aware of it. Chest xray result:significant right lung PNA. Resident noted with increased temp on 06/29/24 which is 102.2, no further fever noted after that. C/O dry mouth and dry throat due to cough as per resident. V/s taken as follows 119/78, 111, 97.8 22, 100% O2 saturation. It has been noted that resident noted with increased heart rate previously. Resident stated that he's been having dry cough which causing him to have pain on his rib cage, chest. Last CBC drawn with increased WBC of 18.[address] Velasquez this moening and made him aware of it and so with the Chest x-ray result and ordered to repeat the chest xray in 2 weeks and ordered to do cbc to follow up on the WBC. MD ordered to give the Ativan 0.5 mg every 12 hours as needed for increased heart rate x 3 days. Talked to resident and made aware about the orders of Dr Velasquez. Explained about the Ativan order and agreed, mentioned to resident that this short story writer will notify his mother about it but he said he'll be the one to tell her mom.
[2024-07-01] MEDS: ACETAMINOPHEN 325 MG TABLET 650 MG GT (16:53)
--- NOTE | 2024-07-01 16:56 | PC.NURSE ---
Resident noted with a temp of 101.3, no s/s of respiratory distress noted. WBC noted to be 16.1. V/S taken as follows: 117/79, 107, 29, 100% on mechanical ventilator. Given tylenol PRN po. Called Dr Velasquez but unable to get hold of him. Left message on his voicemail.
--- NOTE | 2024-07-01 17:15 | PC.NURSE ---
Dr Velasquez called back and gave update about resident's temp and increased WBC , with order received to transfer resident to ER for further evaluation and treatment. Resident made aware.
--- NOTE | 2024-07-01 17:59 | PC.NURSE ---
At 1735 Made phone call to Rosa (mother) to inform that Scot has been having an elevated temperature, CBC showed WBC of 16.1. Previous WBC of 18 and elevated heart rate of 107. MD aware and advised to sent Scot to ED due to Scot not responding to ABTX. ED called to inform of transfer. Rosa had no questions and said she would be going to ED this evening.
--- NOTE | 2024-07-01 18:46 | PC.NURSE ---
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 Resident remains alert, verbally responsive.No s/s of respiratory distress noted.
--- NOTE | 2024-07-08 20:06 | ESPR_ITS ---
Progress Note - SubAcute DIAGNOSIS (1) Ventilator dependence: Status: Chronic (2) Limb-girdle muscular dystrophy, type 2B: Status: Chronic (3) Tracheostomy in place: Status: Chronic (4) Chronic respiratory failure with hypoxia and hypercapnia: Status: Chronic (5) G tube feedings: Status: Chronic SUBJECTIVE Fever:: none Shortness of Breath:: none Pain:: none OBJECTIVE Most recent vital signs: Last Vital Signs Temp 101.3 F H 07/01/24 17:50 Pulse 107 H 07/01/24 17:50 Resp 35 H 07/01/24 17:50 BP 117/79 07/01/24 17:50 Pulse Ox 100 07/01/24 17:50 O2 Del Method Mechanical Ventilation 07/01/24 17:50 O2 Flow Rate 6 06/24/24 05:43 FiO2 40 07/01/24 12:34 Neurological:: alert Answers questions:: yes Respiratory:: rhonchi Cardiovascular: RRR Abdomen: soft and nontender Extremities:: deformities (Limb girdle muscle weakness severe due to dystrophy and pt thus bed bound) Tracheostomy:: to ventilator Feeding per:: po Complaints:: none ASSESSMENT & PLAN Assessment: Pt very cooperative. Weaning off ventilator as per protocol continued. no success yet. No complaints. PO intake fair. Weight monitoring done. no pain issues. Pt comfortable and content. Remains active. Pt had urinary retention confirmed with Ultra sound a few days ago and had a catheter placed successfully and bladder training initiated and subsequently DC'd. VSS. Tolerating feeding. Will continue to wean him off the Ventilator as tolerated. Pt started on prn Me latonin for mild insomnia. working well. Pt spiked fever and w/u shows leucocytosis and hence started on IV Rocephin. Difficult access hence started in foot as per attending RN. Good response to antibiotics, Now afebrile, VSS Plan: treatment and ventilator settings reviewed and continued. Tried on weaning mode for a trial but did not tolerate it and wanted to be back on the Ventilator and so done . fairly stable, vss
== END 2024-07-09 00:01 | disposition admitted as inpatient to this hospital (09) | DRG 130 ==
PROVIDERS: Admitting Provider Specialist; Visit Provider Specialist
DX: J96.12 Chronic respiratory failure with hypercapnia (principal); J96.11 Chronic respiratory failure with hypoxia; J11.00 Influenza due to unidentified influenza virus with unspecified type of pneumonia; G71.0 Muscular dystrophy; N39.0 Urinary tract infection, site not specified; Z99.11 Dependence on respirator [ventilator] status; Z93.0 Tracheostomy status; Z93.1 Gastrostomy status; Z96.0 Presence of urogenital implants; Z74.01 Bed confinement status; G47.00 Insomnia, unspecified; R50.9 Fever, unspecified; D72.829 Elevated white blood cell count, unspecified
CPT/HCPCS: 36415; 71045; 80053; 81001; 84145; 85025; 87040; 87077; 87086; 87186; 87205; 87502; 87811; 94002; 94004; 94640; 94762

== ENCOUNTER 2024-07-01 18:10 | Inpatient (IN) | payer MEDICAID, SELFPAY ==
[2024-07-01 18:12] VITALS: BP 113/77; PULSE 120; RESP 19; TEMP 37.8; O2SAT 99
[2024-07-01 18:13] VITALS: BMI 18.1
--- NOTE | 2024-07-01 18:41 | PD.EDFEVER ---
ED Fever RME/HPI General Chief Complaint: Recheck/Abnormal Lab/Rx Stated Complaint: PNEUMONIA Time Seen by Provider: 07/01/24 18:34 Arrival date/time: 07/01/24 18:10 Related Data Home Medications ?Medication ?Instructions ?Recorded ?Confirmed melatonin 3 mg tablet 3 mg PO HS 01/27/24 01/27/24 Previous Rx's ?Medication ?Instructions ?Recorded ferrous sulfate 300 mg (60 mg 300 mg (5 mL) PO Q48H #500 mL 10/08/23 iron)/5 mL oral liquid amoxicillin 875 mg-potassium 1 tab PO BID #24 tabs 01/28/24 clavulanate 125 mg tablet doxycycline hyclate 100 mg tablet 100 mg PO BID 12 days #24 tabs 01/28/24 Allergies Allergy/AdvReac Type Severity Reaction Status Date / Time No Known Allergies Allergy Unverified 09/27/23 15:37 Course Orders Category Date Time Status Bedside COVID-19 Antigen Test NOW Care 07/01/24 18:41 Active Bedside Influenza A&B Antigen Test NOW Care 07/01/24 18:[address] Screening NOW Care 07/01/24 18:45 Active EKG (ED ONLY) *Do not use* NOW Care 07/01/24 18:45 Completed Saline [Insert IV] NOW Care 07/01/24 18:42 Completed Straight [In and Out Catheter] X1 Care 07/01/24 18:[address] angio chest Stat Exams 07/01/24 18:[address] chest wo con Stat Exams 07/01/24 20:13 Ordered EKG (ED Only) Stat Exams 07/01/24 18:45 Draft XR chest 1V portable Stat Exams 07/01/24 18:44 Completed ABG [Arterial Blood Gas] Stat Lab 07/01/24 18:44 Ordered BNP [B-Type Natriuretic Peptide] Stat Lab 07/01/24 18:50 Completed Blood Culture (Lab) Stat Lab 07/01/24 19:04 Received CBC Stat Lab 07/01/24 18:50 Completed CMP [Comprehensive Metabolic Panel] Stat Lab 07/01/24 18:50 Results CRP [C-Reactive Protein] Stat Lab 07/01/24 18:50 Results D-Dimer Stat Lab 07/01/24 18:50 Completed ESR [Sed Rate (ESR)] Stat Lab 07/01/24 18:50 Completed Lactate (Lactic Acid) Stat Lab 07/01/24 18:50 Results Magnesium Stat Lab 07/01/24 18:50 Results Procalcitonin Stat Lab 07/01/24 18:50 Results RSV [Respiratory Syncytial Virus Ag] Stat Lab 07/01/24 18:46 Ordered TSH [Thyroid Stimulating Hormone] Stat Lab 07/01/24 18:50 Results Troponin I Stat Lab 07/01/24 18:50 Results UA, C/S IF [Urinalysis, C/S if Indicated] Stat Lab 07/01/24 18:46 Ordered VBG [Venous Blood Gas] Stat Lab 07/01/24 19:46 Ordered Acetaminophen Ivpb [Ofirmev Inj] Med 07/01/24 18:42 Discontinued 1,000 mg in 100 ml IV X1 Cefepime Inj [Maxipime Inj] 1 gm Med 07/01/24 18:42 Discontinued SODIUM CHLORIDE 0.9% (Popper) [Ns 0.9% (P)] 50 ml IV X1 KCL 10% Liq UDC 15 ML Med 07/01/24 20:12 Discontinued 40 meq PO X1 ONE Ketorolac Inj [Toradol Inj] Med 07/01/24 18:42 Discontinued 30 mg IVP X1 ONE Sodium Chloride 0.9% 1000 ml [Ns] 1,000 ml Med 07/01/24 18:42 Discontinued IV 999 mls/hr Vancomycin/Ns 1 gm Ivpb 200 ml Med 07/01/24 19:00 Active IV X1 Vital Signs Vital signs: Vital Signs Temperature 100.0 F 07/01/24 18:12 Pulse Rate 120 H 07/01/24 18:12 Respiratory Rate 19 07/01/24 18:12 Blood Pressure 113/77 07/01/24 18:12 Pulse Oximetry (%) 99 07/01/24 18:12 Oxygen Delivery Method Trach Collar 07/01/24 18:12 Fever Evaluation data The following diagnostics were reviewed and interpreted by me:: EKG tracing(s) (My interpretation of the EKG is: Sinus rhythm (98 bpm) with nonspecific ST-T changes. Sony Ribeiro MD) Medications / Prescriptions Medication administrations:: Medication Administration History Vancomycin/Sodium Chloride (Vancomycin/Ns 1 Gm Ivpb) 200 mls @ 120 mls/hr IV X1 ONE Stop: 07/01/24 20:39 Last Admin: 07/01/24 20:11 Dose: 120 mls/hr Documented By: CVL Discontinued Medications Acetaminophen (Ofirmev Inj) 1,000 mg in 100 mls @ 250 mls/hr IV X1 ONE Stop: 07/01/24 19:05 Last Infusion: 07/01/24 19:11 Dose: Infused Documented By: Admin: 07/01/24 18:49 Dose: 250 mls/hr Documented By: GM Sodium Chloride (Ns) 1,000 mls @ 999 mls/hr IV .Q1H1M ONE Stop: 07/01/24 19:42 Last Infusion: 07/01/24 19:37 Dose: Infused Documented By: Admin: 07/01/24 18:49 Dose: 999 mls/hr Documented By: GM Cefepime HCl 1 gm/ Sodium (Chloride) 50 mls @ 100 mls/hr IV X1 ONE Stop: 07/01/24 19:11 Last Infusion: 07/01/24 20:09 Dose: Infused Documented By: Admin: 07/01/24 19:34 Dose: 100 mls/hr Documented By: CVL Ketorolac Tromethamine (Ketorolac Inj 30 Mg/Ml Vial) 30 mg IVP X1 ONE Stop: 07/01/24 18:43 Last Admin: 07/01/24 18:50 Dose: 30 mg Documented By: GM Potassium Chloride (Potassium Chloride 10% 20 Meq/15 Ml Udc) 40 meq PO X1 ONE Stop: 07/01/24 20:13 Discharge Plan Prescriptions/Referrals Prescriptions/Med Rec: No Action ferrous sulfate 300 mg (60 mg iron)/5 mL Liquid 300 mg PO Q48H Qty: 500 0RF melatonin 3 mg tablet 3 mg PO HS amoxicillin-pot clavulanate 875-125 mg tablet 1 tab PO BID Qty: 24 0RF doxycycline hyclate 100 mg tablet 100 mg PO BID 12 Days Qty: 24 0RF Referrals: Jose Velasquez MD [Primary Care Provider] - In 1 week Patient/Caregiver Discharge Instructions Print Language: Danish
--- NOTE | 2024-07-01 18:44 | XR_ITS ---
Examination: AP chest single view TECHNIQUE: AP portable semiupright chest single view Exam date and time: July 01, 2024 1824 hours INDICATION: Shortness of breath this week. FINDINGS: Extensive opacity in the right lower lobe and right middle lobe Normal heart size Tracheostomy tube tip 5.1 cm in both daryl Intact osseous structures IMPRESSION: Extensive parenchymal disease in the right lower lobe and right middle lobe, differential would include pneumonia Consider CT chest without contrast follow-up
--- NOTE | 2024-07-01 18:45 | EKG_ITS ---
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
[2024-07-01] MEDS: ACETAMINOPHEN IVPB 1,000 MG/100 ML VIAL 250 MG IV (18:49)
[2024-07-01] MEDS: SODIUM CHLORIDE 0.9% 1000 ML 1,000 ML 999 ML IV (18:49)
[2024-07-01 18:50] VITALS: TEMP 37.8
[2024-07-01] MEDS: KETOROLAC INJ 30 MG/ML VIAL IVP (18:50)
[2024-07-01 18:58] LABS: Lactate (Lactic Acid) 2.2 mMol/L (0.4-2.0)
[2024-07-01 19:03] LABS: Basophils % (Auto) 0 % (0-2.5); Eosinophils # (Auto) 0.2 Thou/mm3 (0.0-0.5); Eosinophils % (Auto) 1 % (0-10); Hematocrit 35.5 % (41.0-53.0); Hemoglobin 12.1 g/dL (13.5-16.0); Immature Granulocytes % (Auto) 0 % (0-0); Immature Granulocytes Auto 0.06 Thou/mm3 (0.00-0.00); Lymphocytes # (Auto) 1.4 Thou/mm3 (1.0-4.8); Lymphocytes % (Auto) 9 % (10-50); Mean Corpuscular HGB Conc 34.1 g/dl (31.0-37.0); Mean Corpuscular Hemoglobin 30.3 pg (25.0-35.0); Mean Corpuscular Volume 89 fL (80-100); Monocytes # (Auto) 1.5 Thou/mm3 (0.0-0.8); Monocytes % (Auto) 10 % (0-12); Neutrophils # (Auto) 11.9 Thou/mm3 (1.8-7.7); Neutrophils % (Auto) 79 % (37-80); Nucleated Red Blood Cell % 0 /100 WBC (0); Platelet Count 366 Thou/mm3 (140-440); RDW Standard Deviation 45.1 fL (35.1-43.9)
[2024-07-01 19:12] LABS: Sed Rate (ESR) 79 mm/hr (0-15)
[2024-07-01 19:28] LABS: Alanine Aminotransferase 20 U/L (10-49); Albumin, Serum 4.4 gm/dL (3.5-5.0); Albumin/Globulin Ratio 1.5 (1.2-2.2); Alkaline Phosphatase 85 U/L (46-116); Anion Gap 8 (7-16); Aspartate Amino Transferase 24 U/L (0-34); BUN/Creatinine Ratio 25 Ratio (12-20); Bilirubin,Total 0.6 mg/dL (0.3-1.2); Blood Urea Nitrogen 5 mg/dL (9-23); Calcium 10.7 mg/dL (8.3-10.6); Calcium (Corrected) 10.7 mg/dL (8.5-10.1); Carbon Dioxide 26.9 mMol/L (20.0-31.0); Chloride 101 mMol/L (98-107); Creatinine (Component) 0.2 mg/dL (0.6-1.3); Estimated Creatinine Clearance 297.7 mL/min (>60); Glucose 138 mg/dL (74-106); Magnesium 1.8 mg/dL (1.6-2.6); Osmolality,Calculated 271 (275-295); Sodium 136 mMol/L (136-145); Thyroid Stimulating Hormone 1.31 uIU/mL (0.55-4.78); Total Protein 7.4 gm/dL (5.7-8.2); Troponin I < 0.020 ng/mL (0.0-0.045); eGFR > 60 See Note
[2024-07-01 19:30] VITALS: BP 107/75; PULSE 92; RESP 32; TEMP 37.1; O2SAT 100
[2024-07-01 19:32] VITALS: TEMP 37.1
[2024-07-01 19:34] LABS: D-Dimer 526 ng/mL (<600)
[2024-07-01] MEDS: CEFEPIME INJ 1 GM in SODIUM CHLORIDE 0.9% (Popper) 50 ML IV (19:34)
[2024-07-01 19:35] LABS: B-Type Natriuretic Peptide < 20 pg/mL (0-100)
[2024-07-01] MEDS: VANCOMYCIN/NS 1 GM IVPB 200 ML IV (20:11)
--- NOTE | 2024-07-01 20:13 | XR_ITS ---
Examination: CT chest, without intravenous contrast. Sagittal and coronal 2-D reconstructions. Exam date and time: July 01, 2024 2043 hours INDICATIONS: Shortness of breath today CTDI:vol (mGy) 9.12 DLP: (mGycm) 365 Technique: Multiple 3.0 mm axial sections of the chest to been obtained. Bone and lung density settings are obtained. Sagittal and coronal 2-D reconstructions have been obtained. Low dose protocols were performed. One or more of the following dose reduction techniques were used; automated exposure control, adjustment of the mA and/or KV according to patient size, use of iterative reconstruction technique. Findings: Tracheostomy tube tip 5 cm above daryl No thoracic aortic aneurysm dilatation Pulmonary artery segments are not enlarged Prominent pneumonia and atelectasis right lower lobe with small to moderate right pleural effusion No visualized liver or splenic lesion Suspicious for gallbladder sludge versus small stones axial image 177 No hydronephrosis IMPRESSION: Prominent pneumonia and atelectasis right lower lobe with small moderate right pleural effusion Recommend hepatobiliary sonography to assess for gallbladder sludge versus small stones
[2024-07-01 20:25] LABS: Base Excess, Venous 2 (-3-3); O2 Saturation, Venous 100 % (96-97); PCO2, Venous 39 mmHg (36-56); PO2, Venous 121 mmHg (15-58); pH, Venous 7.45 (7.33-7.66)
[2024-07-01 21:03] LABS: C-Reactive Protein 24.5 mg/dL (0.0-0.9); Procalcitonin 0.17 ng/ml (0.0-0.49)
[2024-07-01] MEDS: POTASSIUM CHLORIDE 10% 20 MEQ/15 ML UDC 40 MEQ PO (21:18)
[2024-07-01 21:56] LABS: Reflex Lactate? Y
[2024-07-01 21:58] LABS: Collection Type, Urine Clean Catch; RBC,Urine 0 /hpf (0-3); WBC,Urine 0 /hpf (0-5)
[2024-07-01 22:04] LABS: Bilirubin,Urine Negative (Negative); Blood,Urine Negative (Negative); Clarity,Urine Clear (Clear/Hazy); Color,Urine Lt-Yellow (Lt Yel-Yel); Culture Indicated,Urine Not Indicated; Glucose, Urine Negative (Negative); Ketones,Urine 1+ (Negative); Leukocyte Esterase,Urine Negative (Negative); Nitrite,Urine Negative (Negative); PH,Urine 6.5 (5.0-7.0); Protein,Urine Negative (Neg - Trace); Specific Gravity,Urine 1.016 (1.001-1.035); Squamous Epithelial Cell,Urine < 1 /hpf (0-5); Urobilinogen,Urine Negative mg/dL (0.0-1.0)
[2024-07-01 22:10] VITALS: BP 98/61; PULSE 99; RESP 20; TEMP 36.9; O2SAT 100
[2024-07-01 22:27] LABS: Lactic Acid, 3 HR 0.8 mMol/L (0.4-2.0)
--- NOTE | 2024-07-01 22:29 | XR_ITS ---
Examination: Abdomen sonogram, Limited Date and time of exam: July 01, 2024, 11:22 PM INDICATIONS: Right upper abdomen tenderness today Technique: Real-time epstein scale transabdominal sonographic images of the upper abdomen obtained. Findings: Normal gallbladder. Normal common bile duct 0.2 cm Pancreatic head 1.7 cm Liver 16.8 cm fatty infiltration Partial visualization right pleural effusion Normal hepatopedal portal venous flow Patent IVC IMPRESSION: Normal gallbladder Mild hepatomegaly with fatty liver
[2024-07-01 22:52] VITALS: BP 98/61; PULSE 97; RESP 32; O2SAT 100
[2024-07-01 23:25] LABS: Respiratory Syncytial Virus Ag Negative (Negative)
[2024-07-02] VITALS (17 sets, daily range): BP systolic 95–110; BP diastolic 62–80; PULSE 91–121; RESP 17–35; TEMP 36.7–38.4; O2SAT 96–100
--- NOTE | 2024-07-02 01:31 | ESHP_ITS ---
<Statement entered by Caroline Easton MD - 07/03/24 05:06> I reviewed above note and agree with findings and plans. I have also personally examined the patient with medicine team and went over assessment and plan with medical team including general internist and physician leader and resident physician. Documentation for date of: 07/02/24 HPI History of Present Illness History of present illness: Scot is a 33 y/o male with PMHx of limb-girdle muscular dystrophy type IIb, chronic trach, history of ESBL UTI and recurrent pneumonia comes in for an evaluation of fever, chills and chest pain. Patient reports that yesterday he has been dealing with some chest pain and fever and chills. He said he was started on antibiotic in which he does not not know what it was but he has been taking it. He says that he is from subacute. He also says that he recently got his trach tube replaced recently. He denies any recent travel. He says that his chest pain has resolved at this point. He said he got his G-tube removed about 4 months ago. Denies any shortness of breath, nausea vomiting or diarrhea, numbness, confusion. No other complaints at this time ED course: He arrived to the ED with temperature of 100, heart rate 120, blood pressure 113/77, saturating 99% on trach. He was worked up was found to have a sodium 136, potassium 3, BUN/creatinine 5 and 0.2 respectively, bicarb 27, pH VBG 7.45, pCO2 39, magnesium 1.8, calcium 10.7, white count 15, hemoglobin 12.1, platelets 366, troponin negative x 1, lactate 2.2, Pro-George unremarkable. EKG shows normal sinus rhythm, rate of 98. Chest CT shows prominent pneumonia and atelectasis in right lobe, and moderate pleural effusion. Patient was given Tylenol 1 g, cefepime 1 g, 1 L normal saline, vancomycin 1 g, Toradol 30 mg, potassium 40 mEq. Medicine was consulted patient admitted to the floors. Past medical history: As above Surgical history tracheostomy, PEG was removed about 4 months ago Allergies: No known allergies Meds: Takes Tylenol, a number of laxatives occluding senna, milk of mag and Fleet enemas, melatonin for sleep Family history: Sister of COVID-pneumonia as she had muscular dystrophy as well Social history: Lives in subacute. Has number of tattoos. No smoking, drug use or alcohol use. Review of Systems Review of Systems Narrative Review of Systems: Constitutional: Positive fever, positive chills, no fatigue, weakness, weight loss HEENT: No eye pain, vision loss, ear pain, hearing loss, dysphagia, Cardiovascular: positive chest pain, palpitations, edema, pain with walking Respiratory: No cough, shortness of breath, wheezing GI: No NVD, abdominal pain, constipation, blood in stool, loss of appetite, heartburn Extremities: No presence of pitting edema MSK: No back pain, joint pain, joint swelling Neuro: No dizziness, numbness, weakness, headaches, seizures, tremors Psych: No anxiety, depression Exam Vital Signs Temp Pulse Resp BP Pulse Ox O2 Del Method FiO2 98.9 F 98 19 95/67 97 Mechanical Ventilation 40 07/02/24 00:59 07/02/24 00:59 07/02/24 00:59 07/02/24 00:59 07/02/24 00:59 07/02/24 00:59 07/01/24 22:52 Narrative Exam General: AAOx3, NAD, pleasant and talking, appears frail, diffuse muscles nuclear atrophy, cachectic, anorexic HEENT: Moist mucous membranes, conjunctiva clear, EOMI, PERRLA, clavicles present bilaterally, Cardiovascular: S1, S2, radial pulses +2 bilat, RRR, multiple chest tattoos present Pulmonary: No cough, wheezing chronic trach, tidal volume 300, PEEP of 5, FiO2 40 GI: No tenderness to light or deep palpitation, no guarding, rigidity, rebound tenderness or distension concave abdomen Extremities: No presence of trace or pitting edema in lower extremities bilaterally, dorsalis pedis pulses +2 bilaterally, minimal musculature present in LE Neuro: AAOx3, no focal motor or sensory deficits in the UE or LE bilat, limited neuroexam Psych: Cooperative Results: Labs 07/02/24 04:13 07/02/24 04:13 Labs: Short CBC 07/01/24 Range/Units 18:50 WBC 15.0 H (3.8-10.6) Thou/mm3 Hgb 12.1 L (13.5-16.0) g/dL Hct 35.5 L (41.0-53.0) % Plt Count 366 D (140-440) Thou/mm3 BMP 07/01/24 18:50 Sodium 136 Potassium 3.0 L Chloride 101 Carbon Dioxide 26.9 BUN 5 L Creatinine 0.2 L Glucose 138 H Calcium 10.7 H Cardiac Enzymes 07/01/24 Range/Units 18:50 Troponin I < 0.020 (0.0-0.045) ng/mL Liver Function 07/01/24 Range/Units 18:50 Total Bilirubin 0.6 (0.3-1.2) mg/dL AST 24 (0-34) U/L ALT 20 (10-49) U/L Alkaline Phosphatase 85 (46-116) U/L Albumin 4.4 (3.5-5.0) gm/dL Urine 07/01/24 Range/Units 21:36 Urine Color Lt-Yellow (Lt Yel-Yel) Urine Clarity Clear (Clear/Hazy) Urine pH 6.5 (5.0-7.0) Ur Specific [place] 1.016 (1.001-1.035) Urine Protein Negative (Neg - Trace) Urine Glucose (UA) Negative (Negative) ABG Interpretation ABG results: 07/01/24 20:07 VBG pH 7.45 VBG pCO2 39 VBG pO2 121 H VBG Base Excess 2 Quality Measures Quality Measures VTE prophylaxis (Lovenox) Medications Home Medications and Allergies Home Medications ?Medication ?Instructions ?Recorded ?Confirmed ?Type melatonin 3 mg tablet 3 mg PO HS 01/27/24 01/27/24 History Allergies Allergy/AdvReac Type Severity Reaction Status Date / Time No Known Allergies Allergy Unverified 09/27/23 15:37 Visit Medications Discontinued Medications Acetaminophen (Ofirmev Inj) 1,000 mg in 100 mls @ 250 mls/hr IV X1 ONE Stop: 07/01/24 19:05 Last Infusion: 07/01/24 19:11 Dose: Infused Sodium Chloride (Ns) 1,000 mls @ 999 mls/hr IV .Q1H1M ONE Stop: 07/01/24 19:42 Last Infusion: 07/01/24 19:37 Dose: Infused Cefepime HCl 1 gm/ Sodium (Chloride) 50 mls @ 100 mls/hr IV X1 ONE Stop: 07/01/24 19:11 Last Infusion: 07/01/24 20:09 Dose: Infused Vancomycin/Sodium Chloride (Vancomycin/Ns 1 Gm Ivpb) 200 mls @ 120 mls/hr IV X1 ONE Stop: 07/01/24 20:39 Last Infusion: 07/01/24 22:29 Dose: Infused Ketorolac Tromethamine (Ketorolac Inj 30 Mg/Ml Vial) 30 mg IVP X1 ONE Stop: 07/01/24 18:43 Last Admin: 07/01/24 18:50 Dose: 30 mg Potassium Chloride (Potassium Chloride 10% 20 Meq/15 Ml Udc) 40 meq PO X1 ONE Stop: 07/01/24 20:13 Last Admin: 07/01/24 21:18 Dose: 40 meq Assessment & Plan Plan Assessment Scot is a 33 y/o male with PMHx of limb-girdle muscular dystrophy type IIb, chronic trach, history of ESBL UTI and recurrent pneumonia who is admitted for sepsis secondary to pneumonia. #Sepsis secondary to #Hospital-acquired pneumonia versus ventilator associated pneumonia #Acute on chronic hypoxic respiratory failure #Pleural effusion, right side 120 HR, WBC 15, fever of 101.3 Lactate 2.2 -> 0.8 Pro-George 0.17 qSOFA: 1 points 3 out of 4 SIRS criteria Sepsis due to 3/4 SIRS criteria Given Sepsis Bolus 1.25 L NS Urine culture negative Chronic trach Patient will need broad-spectrum antibiotics including Pseudomonas coverage, atypicals and strep pneumo Patient gets recurrent pneumonia, and is treated for recurrent hospital/ventilator associated pneumonia Chest CT shows prominent pneumonia in right lung along with atelectasis and right-sided moderate pleural effusion Plan: ? Cefepime 2g Q8H IV ? Vancomycin IV pharmacy to dose ? Azithromycin 500 mg IV now, 250 mg IV for 4 days ? Follow-up MRSA screen ? Follow-up blood cultures ? Follow-up sputum culture ? Consider thoracentesis ? Continue with current ventilator settings ? DuoNebs every 8 hours as needed #Chest pain, atypical, improving Does not change with movement or stressful situations, was not given any nitro for this Chronically musculoskeletal or could be related to GERD EKG shows normal sinus rhythm, rate of 98 Chest pain is resolved, unlikely ischemic, troponin negative #Hypercalcemia Chronic, likely related to hypercalcemia of immobilization 10.7 Plan: ? Trend with CMP #History of limb-girdle muscular dystrophy type IIb #History of chronic trach #Failure to thrive #Anorexic On ventilator VBG pH 7.45, pCO2 39 Plan: ? Bedrest ? Registered dietitian referral #Health Maintenance Disposition: Telemetry DVT prophylaxis: Lovenox GI prophylaxis: Protonix Diet: Pending swallow eval, high-calorie CODE STATUS: Full Patient seen and care discussed with my attending physician, Dr. Jemma Finn, PGY-1
[2024-07-02] MEDS: SODIUM CHLORIDE 0.9% 250 ML 250 ML 999 ML IV (02:11)
[2024-07-02] MEDS: PANTOPRAZOLE INJ 40 MG VIAL IVP (02:37)
[2024-07-02] MEDS: AZITHROMYCIN INJ 500 MG in SODIUM CHLORIDE 0.9% 250 ML 250 ML 250 MG IV (02:37)
--- NOTE | 2024-07-02 03:02 | PC.NURSE ---
repositioned pt,per pt request, to the left side. pt denied needing to use urinal at this time. pt brief was dry.
[2024-07-02 04:29] LABS: Basophils % (Auto) 0 % (0-2.5); Eosinophils # (Auto) 0.2 Thou/mm3 (0.0-0.5); Eosinophils % (Auto) 1 % (0-10); Hematocrit 32.9 % (41.0-53.0); Hemoglobin 10.9 g/dL (13.5-16.0); Immature Granulocytes % (Auto) 0 % (0-0); Immature Granulocytes Auto 0.06 Thou/mm3 (0.00-0.00); Lymphocytes # (Auto) 1.4 Thou/mm3 (1.0-4.8); Lymphocytes % (Auto) 10 % (10-50); Mean Corpuscular HGB Conc 33.1 g/dl (31.0-37.0); Mean Corpuscular Hemoglobin 30.2 pg (25.0-35.0); Mean Corpuscular Volume 91 fL (80-100); Monocytes # (Auto) 1.3 Thou/mm3 (0.0-0.8); Monocytes % (Auto) 9 % (0-12); Neutrophils # (Auto) 11.2 Thou/mm3 (1.8-7.7); Neutrophils % (Auto) 79 % (37-80); Nucleated Red Blood Cell % 0 /100 WBC (0); Platelet Count 317 Thou/mm3 (140-440); RDW Standard Deviation 46.5 fL (35.1-43.9); Red Blood Count 3.61 Miln/mm3 (4.50-5.90); White Blood Count 14.2 Thou/mm3 (3.8-10.6)
[2024-07-02 04:47] LABS: INR 1.3 (0.9-1.3); Partial Thromboplastin Time 33.1 Seconds (22.0-36.0); Prothrombin Time 13.5 Seconds (9.0-12.2)
[2024-07-02 04:52] LABS: Glucose Estimated Average 91 mg/dL (80-131); Hemoglobin A1C 4.8 % Hgb (4.8-6.0)
[2024-07-02 04:53] LABS: Alanine Aminotransferase 47 U/L (10-49); Albumin, Serum 3.9 gm/dL (3.5-5.0); Albumin/Globulin Ratio 1.4 (1.2-2.2); Alkaline Phosphatase 76 U/L (46-116); Anion Gap 6 (7-16); Aspartate Amino Transferase 38 U/L (0-34); BUN/Creatinine Ratio 30 Ratio (12-20); Bilirubin,Total 0.7 mg/dL (0.3-1.2); Blood Urea Nitrogen 6 mg/dL (9-23); Calcium 9.7 mg/dL (8.3-10.6); Calcium (Corrected) 9.8 mg/dL (8.5-10.1); Carbon Dioxide 27.3 mMol/L (20.0-31.0); Cardiac Risk Estimate 3.2 RATIO (4.0-6.7); Chloride 107 mMol/L (98-107); Cholesterol 101 mg/dL (132-200); Creatinine (Component) 0.2 mg/dL (0.6-1.3); Estimated Creatinine Clearance 297.7 mL/min (>60); Globulin 2.7 gm/dL (2.3-3.5); Glucose 114 mg/dL (74-106); HDL Cholesterol 32 mg/dL (40-60); LDL Cholesterol,Calculated 60 mg/dL (0-130); Magnesium 1.7 mg/dL (1.6-2.6); Osmolality,Calculated 278 (275-295); Phosphorous 2.3 mg/dL (2.4-5.1); Potassium 4.3 mMol/L (3.4-5.1); Sodium 140 mMol/L (136-145); Total Protein 6.6 gm/dL (5.7-8.2); Triglycerides 44 mg/dL (30-150); eGFR > 60 See Note
[2024-07-02] MEDS: CEFEPIME INJ 2 GM in SODIUM CHLORIDE 0.9% (Popper) 50 ML IV ×3 (06:46→21:19)
[2024-07-02] MEDS: ALBUTEROL/IPRATROPIUM (Duoneb) RT SOL 3 ML NEBU INH ×2 (07:05→23:47)
[2024-07-02] MEDS: ENOXAPARIN SOD INJ 40 MG/0.4 ML SYRINGE SC (09:07)
[2024-07-02] MEDS: VANCOMYCIN/NS 1 GM IVPB 200 ML IV (09:09)
--- NOTE | 2024-07-02 09:12 | ESPR_ITS ---
<Statement entered by Sudheer Julio MD - 07/02/24 18:26> Patient was seen and examined at the bedside. Patient is admitted overnight from [facility] due to vent associated PNA. Currently continuing on cefepime and vancomycin. UCx grew GNR and sputum cx grew pseudomonas. Awaiting BCx results. Regular diet was started. Labs showed stable hemoglobin. Fever was recorded therefore Tylenol was added. Continuing breathing tx and current management.Pt states he was diagnosed with muscular dystrophy at the ago of 7. Pt is complaining of right sided chest pain, worse with cough. BP is stable, Pt is tachycardic and tachypnic. significant labs inlcude wbc 14.2, Hgb 10.9 and Hct 32.9. CXR show moderate right pleural effusions and thoracenthesis is ordered for tomorrow. All labs and order were reviewed. I saw and examined the patient, and I agree with current management stated by Dr Romulo MD,PGY1. Plan of care was discussed with the attending physician and resident physician. Disclaimer: Despite multiple revisions, due to the dictation software being used, the document bellow may not be free of grammatical errors including phonetic/typographic errors. However, this does not deter from our commitment to providing health care in the patient's best interest in mind. Dr. Nori MD, PGY 2 Documentation for date of: 07/02/24 Subjective Subjective Interval history: Patient is an overnight admit from [facility]. Patient states that he has been having fever chills and cough since Wednesday and was given antibiotics which did not help with his symptoms. Patient continues to have fever of 100.7 on admission and cough, in the subacute patient's influenza and COVID was negative. pt has been a resident of [facility] for approximately 8 months because pt underwent tracheostomy. Pt states he was diagnosed with muscular dystrophy at the ago of 7. Pt is complaining of right sided chest pain, worse with cough. BP is stable, Pt is tachycardic and tachypnic. significant labs inlcude wbc 14.2, Hgb 10.9 and Hct 32.9. CXR show moderate right pleural effusions and thoracenthesis is ordered for tomorrow. Exam Vital Signs Temp Pulse Resp BP Pulse Ox O2 Del Method FiO2 99.4 F 115 H 20 110/70 97 Mechanical Ventilation 40 07/02/24 08:48 07/02/24 08:48 07/02/24 08:48 07/02/24 08:48 07/02/24 08:48 07/02/24 08:48 07/02/24 07:05 Narrative Exam GENERAL: A&Ox3 . Awake frail young man, obvious signs of muscle wasting and muscular dystrophy NEURO: no focal neurological deficits HEENT: Atraumatic, Normocephalic. mucous membranes moist. Eyes open, symmetrical, & clear, tracheostomy tube pleasant HEART: Normal Heart Sounds LUNGS: decreased breath sounds bilaterally ABDOMEN: soft, non-distended, non-tender, bowel sounds heard, no guarding or rebound tenderness SKIN: No Rash or ecchymoses EXTREMITIES: No edema, tenderness, contracted thing LE Objective Labs 07/03/24 05:23 07/03/24 05:23 Labs: Laboratory Results - last 24 hr 07/01/24 07/01/24 07/01/24 18:50 20:07 21:36 WBC 15.0 H RBC 4.00 L Hgb 12.1 L Hct 35.5 L MCV 89 MCH 30.3 MCHC 34.1 RDW Std Deviation 45.1 H Plt Count 366 D Neut % (Auto) 79 Lymph % (Auto) 9 L [place] % (Auto) 10 Eos % (Auto) 1 Baso % (Auto) 0 Neut # (Auto) 11.9 H Lymph # (Auto) 1.4 [place] # (Auto) 1.5 H Eos # (Auto) 0.2 Baso # (Auto) 0.0 Immature Gran # (Auto) 0.06 H Absolute Nucleated RBC 0.00 Immature Gran % 0 Nucleated RBC % 0 ESR 79 H PT INR APTT D-Dimer 526 VBG pH 7.45 VBG pCO2 39 VBG pO2 121 H VBG O2 Sat (Obdulia) 100 H VBG Base Excess 2 Sodium 136 Potassium 3.0 L Chloride 101 Carbon Dioxide 26.9 Anion Gap 8 BUN 5 L Creatinine 0.2 L Estim Creat Clear Calc 297.7 eGFR > 60 BUN/Creatinine Ratio 25 H Glucose [address] Glu mg/dL Hemoglobin A1c Calculated Osmolality 271 L Lactic Acid 2.2 H 0.8 Calcium 10.7 H Corrected Calcium 10.7 H Phosphorus Magnesium 1.8 Total Bilirubin 0.6 AST 24 ALT 20 Alkaline Phosphatase 85 Troponin I < 0.020 C-Reactive Prot, Quant 24.5 H B-Natriuretic Peptide < 20 Total Protein 7.4 Albumin 4.4 Globulin 3.0 Albumin/Globulin Ratio 1.5 Triglycerides Cholesterol LDL Cholesterol, Calc HDL Cholesterol Cholesterol/HDL Ratio Procalcitonin 0.17 TSH 1.31 Ur Collection Type Clean Catch Urine Color Lt-Yellow Urine Clarity Clear Urine pH 6.5 Ur Specific [place] 1.016 Urine Protein Negative Urine Glucose (UA) Negative Urine Ketones 1+ A Urine Blood Negative Urine Nitrite Negative Urine Bilirubin Negative Urine Urobilinogen (Auto) Negative Ur Leukocyte Esterase Negative Urine RBC 0 Urine WBC 0 Ur Squamous Epith Cells < 1 Urine Bacteria None Ur Culture Indicated? Not Indicated RSV Rapid 07/01/24 07/02/24 22:30 04:13 WBC 14.2 H RBC 3.61 L Hgb 10.9 L Hct 32.9 L MCV 91 MCH 30.2 MCHC 33.1 RDW Std Deviation 46.5 H Plt Count 317 D Neut % (Auto) 79 Lymph % (Auto) 10 [place] % (Auto) 9 Eos % (Auto) 1 Baso % (Auto) 0 Neut # (Auto) 11.2 H Lymph # (Auto) 1.4 [place] # (Auto) 1.3 H Eos # (Auto) 0.2 Baso # (Auto) 0.0 Immature Gran # (Auto) 0.06 H Absolute Nucleated RBC 0.00 Immature Gran % 0 Nucleated RBC % 0 ESR PT 13.5 H INR 1.3 APTT 33.1 D-Dimer VBG pH VBG pCO2 VBG pO2 VBG O2 Sat (Obdulia) VBG Base Excess Sodium 140 Potassium 4.3 D Chloride 107 Carbon Dioxide 27.3 Anion Gap 6 L BUN 6 L Creatinine 0.2 L Estim Creat Clear Calc 297.7 eGFR > 60 BUN/Creatinine Ratio 30 H Glucose [address] Glu mg/dL 91 Hemoglobin A1c 4.8 Calculated Osmolality 278 Lactic Acid Calcium 9.7 Corrected Calcium 9.8 Phosphorus 2.3 L Magnesium 1.7 Total Bilirubin 0.7 AST 38 H ALT 47 Alkaline Phosphatase 76 Troponin I C-Reactive Prot, Quant B-Natriuretic Peptide Total Protein 6.6 Albumin 3.9 D Globulin 2.7 Albumin/Globulin Ratio 1.4 Triglycerides 44 Cholesterol 101 L LDL Cholesterol, Calc 60 HDL Cholesterol 32 L Cholesterol/HDL Ratio 3.2 L Procalcitonin TSH Ur Collection Type Urine Color Urine Clarity Urine pH Ur Specific [place] Urine Protein Urine Glucose (UA) Urine Ketones Urine Blood Urine Nitrite Urine Bilirubin Urine Urobilinogen (Auto) Ur Leukocyte Esterase Urine RBC Urine WBC Ur Squamous Epith Cells Urine Bacteria Ur Culture Indicated? RSV Rapid Negative ABG Interpretation ABG results: 07/01/24 20:07 VBG pH 7.45 VBG pCO2 39 VBG pO2 121 H VBG Base Excess 2 Quality Measures Quality Measures VTE prophylaxis (Lovenox) Assessment & Plan Assessment Current Active Medications: Generic Name Dose Route Start Last Admin Trade Name Freq PRN Reason Stop Dose Admin Albuterol/Ipratropium 3 ml 07/02/24 01:37 07/02/24 07:05 Albuterol/Ipratropium (Duoneb) Rt May 3 Ml Nebu INH 08/01/24 01:36 3 ml Q8H PRN Administration SHORTNESS OF BREATH OR WHEEZE Enoxaparin Sodium 40 mg 07/02/24 09:00 07/02/24 09:07 Enoxaparin Sod Inj 40 Mg/0.4 Ml Syringe SC 07/16/24 08:59 40 mg QDAY OLMAN Administration Cefepime HCl 2 gm/ Sodium 50 mls @ 100 mls/hr 07/02/24 06:15 07/02/24 07:35 Chloride IV 07/09/24 06:14 Infused Q8HR OLMAN Infusion Azithromycin 250 mg/ Sodium 250 mls @ 250 mls/hr 07/02/24 09:00 Chloride IV 07/09/24 08:59 QDAY OLMAN Vancomycin/Sodium Chloride 200 mls @ 120 mls/hr 07/02/24 08:15 07/02/24 09:09 Vancomycin/Ns 1 Gm Ivpb IV 07/02/24 09:54 120 mls/hr X1 ONE Administration Melatonin 3 mg 07/02/24 21:00 Melatonin 3 Mg Tablet PO 08/01/24 20:59 HS [facility] Pharmacy Consult 1 each 07/02/24 09:00 Vancomycin Pharmacy To Dose 1 Each Each IV 08/01/24 08:59 QDAY PRN CONSULT Sennosides 1 tab 07/02/24 01:45 Senna Tablet PO 08/01/24 08:59 QDAY PRN CONSTIPATION Protocol Plan Scot is a 33 y/o male with PMHx of limb-girdle muscular dystrophy type IIb, chronic trach, history of ESBL UTI and recurrent pneumonia who is admitted for IV antibiotics for pneumonia and managemtn of pleural effusions #Sepsis secondary to - ruled out #Hospital-acquired pneumonia versus ventilator associated pneumonia #Acute on chronic hypoxic respiratory failure #Pleural effusion, right side -Although pt meats SIRS 3/4: leukocytosis , tachycardia and fever, SOFA score is 1 and there is no signs of end organ damage therefore sepsis is ruled out -Lactate 2.2 -> 0.8 , Pro-George 0.17 -In the ED pt is given NS 1.25L Bolus -Urine culture on 06/28 - positive GNR -Pt has tracheostomy tube placed in 2023 -Chest CT shows prominent pneumonia in right lung along with atelectasis and right-sided moderate pleural effusion Plan: ? Cefepime 2g Q8H IV 07/02- ? Vancomycin IV pharmacy to dose 07/02- ? Azithromycin 06/26- 07/02 (Pt was started on azithromycin at the subacute) ? Follow-up MRSA screen ? Follow-up blood cultures ? Sputum culture on 06/28 grew pneudomonas, repeat cultures pending ? U/S guided Thoracentesis ordered for am ? Continue with current ventilator settings ? DuoNebs every 8 hours as needed #Chest pain, right sided, improving Does not change with movement or stressful situations, was not given any nitro for this Chronically musculoskeletal or could be related to GERD or/and pleural effusions EKG shows normal sinus rhythm, rate of 98 Chest pain is resolved, unlikely ischemic, troponin negative #Hypercalcemia- resolved Chronic, likely related to hypercalcemia of immobilization on admission Ca 10.7 Plan: ? Trend with CMP #History of limb-girdle muscular dystrophy type IIb #History of chronic trach #Failure to thrive On ventilator VBG pH 7.45, pCO2 39 -Pt's BMI is 18.2 -Confirmed withsubacute, Pt is on oral feeds with regular diet Plan: ? resumed regular diet ? Registered dietitian referral #Health Maintenance Disposition: Telemetry DVT prophylaxis: Lovenox GI prophylaxis: Protonix Diet: Pending swallow eval, high-calorie CODE STATUS: Full Assessment and plan discussed with my senior resident Dr. uJlio & attending physician Dr. Kevin Sebastian (PGY-1)- Internal medicine resident Attending Provider Attestation/Addendum I have discussed and was present for the essential components of the history, physical examination, diagnosis, and treatment plan with the resident. I agree with the patient's care as documented by the resident and amended herein by me. Scot Brown DO. Although this document has been carefully reviewed, there may still be some phonetic and other typographical errors. These errors are purely grammatical due to imperfections in the software program and should not be construed in any way to compromise the substance of the patient's medical care during this visit.
--- NOTE | 2024-07-02 09:16 | PC.CC ---
Patient is a 33 year-old male who presents to the hospital for Sepsis. Oneyda GOODRICH made [id number] contact with patient. ASW introduced self, role, and reason for visit. Patient appeared alert and oriented to self, location, and situation. Patient was pleasant and engaged in initial assessment. Patient reports that in the event he is unable to make his own medical decisions his mother, Rosa Galdamez would be his medical decision maker. Patient had tracheostomy he is connected to a ventilator, non-ambulatory needs assistance to complete all ADLs. Patient is from [facility] and will be returning upon discharge.
[2024-07-02] MEDS: Magnesium Sulfate 4 GM Ivpb 4 GM/50 ML BAG IV (11:19)
[2024-07-02] MEDS: NAPH,KPH MBDB 1 PACKET (1.5 GM) PO (13:15)
[2024-07-02] MEDS: ACETAMINOPHEN 325 MG TABLET 650 MG PO (16:09)
--- NOTE | 2024-07-02 18:36 | PC.NURSE ---
Patient arrived to unit via bed. Patient is awake, alert and talking with no signs of acute distress.
[2024-07-02] MEDS: MELATONIN 3 MG TABLET PO (21:18)
[2024-07-03] VITALS (10 sets, daily range): BP systolic 98–122; BP diastolic 59–78; PULSE 96–153; RESP 8–40; TEMP 36.6–37.2; O2SAT 96–100; BMI 17.7
[2024-07-03] MEDS: CEFEPIME INJ 2 GM in SODIUM CHLORIDE 0.9% (Popper) 50 ML IV ×3 (05:32→21:05)
[2024-07-03 05:51] LABS: Basophils % (Auto) 0 % (0-2.5); Eosinophils # (Auto) 0.2 Thou/mm3 (0.0-0.5); Eosinophils % (Auto) 1 % (0-10); Hemoglobin 10.1 g/dL (13.5-16.0); Immature Granulocytes % (Auto) 1 % (0-0); Immature Granulocytes Auto 0.11 Thou/mm3 (0.00-0.00); Lymphocytes # (Auto) 1.5 Thou/mm3 (1.0-4.8); Lymphocytes % (Auto) 8 % (10-50); Mean Corpuscular HGB Conc 33.7 g/dl (31.0-37.0); Mean Corpuscular Volume 92 fL (80-100); Monocytes # (Auto) 1.2 Thou/mm3 (0.0-0.8); Monocytes % (Auto) 7 % (0-12); Neutrophils # (Auto) 15.4 Thou/mm3 (1.8-7.7); Neutrophils % (Auto) 83 % (37-80); Nucleated Red Blood Cell % 0 /100 WBC (0); Platelet Count 358 Thou/mm3 (140-440); RDW Standard Deviation 47.9 fL (35.1-43.9); Red Blood Count 3.26 Miln/mm3 (4.50-5.90); White Blood Count 18.5 Thou/mm3 (3.8-10.6)
[2024-07-03 06:18] LABS: INR 1.2 (0.9-1.3); Partial Thromboplastin Time 34.8 Seconds (22.0-36.0); Prothrombin Time 13.4 Seconds (9.0-12.2)
[2024-07-03 06:22] LABS: Alanine Aminotransferase 32 U/L (10-49); Albumin, Serum 3.6 gm/dL (3.5-5.0); Albumin/Globulin Ratio 1.2 (1.2-2.2); Alkaline Phosphatase 80 U/L (46-116); Anion Gap 11 (7-16); Aspartate Amino Transferase 17 U/L (0-34); BUN/Creatinine Ratio 25 Ratio (12-20); Bilirubin,Total 0.6 mg/dL (0.3-1.2); Blood Urea Nitrogen < 5 mg/dL (9-23); Calcium 9.1 mg/dL (8.3-10.6); Calcium (Corrected) 9.4 mg/dL (8.5-10.1); Carbon Dioxide 27.8 mMol/L (20.0-31.0); Chloride 100 mMol/L (98-107); Creatinine (Component) < 0.2 mg/dL (0.6-1.3); Estimated Creatinine Clearance 297.7 mL/min (>60); Globulin 2.9 gm/dL (2.3-3.5); Glucose 89 mg/dL (74-106); LDH (Lactate Dehydrogenase) 138 U/L (120-246); Osmolality,Calculated 273 (275-295); Phosphorous 2.8 mg/dL (2.4-5.1); Potassium 3.7 mMol/L (3.4-5.1); Sodium 139 mMol/L (136-145); Total Protein 6.5 gm/dL (5.7-8.2); Vancomycin,Random < 3.0 mcg/mL; eGFR > 60 See Note
[2024-07-03] MEDS: ALBUTEROL/IPRATROPIUM (Duoneb) RT SOL 3 ML NEBU INH ×2 (06:31→15:33)
--- NOTE | 2024-07-03 07:00 | XR_ITS ---
Examination: Ultrasound right hemithorax Ultrasound left hemithorax Exam date and time: July 03, 2024 1040 hours INDICATIONS: Difficulty breathing this week, bilateral pleural fluid on CT chest July 01, 2024 TECHNIQUE AND FINDINGS: Sonographic images right and left hemithoraces demonstrate small bilateral pleural effusions IMPRESSION: Small bilateral pleural effusions
[2024-07-03] MEDS: VANCOMYCIN/NS 500 MG IVPB 100 ML 120 MG IV ×3 (09:05→21:05)
--- NOTE | 2024-07-03 10:00 | CHAP ---
Patient was visited by the Spiritual Care Volunteer who prayed for them. (Volunteer was in the hospital from 9:29-c10:00)
--- NOTE | 2024-07-03 11:49 | ESPR_ITS ---
<Statement entered by Sudheer Julio MD - 07/03/24 15:12> Patient examined at the bedside. No acute overnight events reported. Thoracentesis could not be performed as it was insufficient for drainage. Currently, continuing IV antibiotics cefepime and vancomycin as currently awaiting sputum culture speciation. White count slightly up trended. Hemoglobin stable. Likely follow-up with blood culture results. All labs and orders were reviewed. I saw and examined the patient, and I agree with current management stated by Dr Romulo MD,PGY1. Plan of care was discussed with the attending physician and resident physician. Disclaimer: Despite multiple revisions, due to the dictation software being used, the document bellow may not be free of grammatical errors including phonetic/typographic errors. However, this does not deter from our commitment to providing health care in the patient's best interest in mind. Dr. Nori MD, PGY 2 Documentation for date of: 07/03/24 Subjective Subjective Interval history: No acute overnight events reported, Pt is seen and examined at bedside this morning. Pt states he still has a cough but no chest pain. he remains afebrile. Pt states he is a bit nervous about the thoracenthesis and explained to the patients of the risks and benefits. Per IR, there was insufficient fluid to be drained. Vitals are stable, Pt is mildy tachycardic but denies any pain. Significant labs include uptrending WBC and remainder of labs are stable. BC at 24 hrs have no growth, sputum stian show 1+GNR and sputum cultures are pending. Pt will continue cefepime and vanco. Will continue to monitor for improvement. Exam Vital Signs Temp Pulse Resp BP Pulse Ox O2 Del Method FiO2 98.5 F 117 H 20 98/63 99 Mechanical Ventilation 40 07/03/24 08:00 07/03/24 08:00 07/03/24 08:00 07/03/24 08:00 07/03/24 08:00 07/03/24 08:00 07/03/24 08:00 Narrative Exam GENERAL: A&Ox3 . Awake frail young man, obvious signs of muscle wasting and muscular dystrophy NEURO: no focal neurological deficits HEENT: Atraumatic, Normocephalic. mucous membranes moist. Eyes open, symmetrical, & clear, tracheostomy tube pleasant HEART: Normal Heart Sounds LUNGS: breath sounds heard bilaterally ABDOMEN: soft, non-distended, non-tender, bowel sounds heard, no guarding or rebound tenderness SKIN: No Rash or ecchymoses EXTREMITIES: No edema, tenderness, contracted thing LE Objective Labs 07/03/24 05:23 07/03/24 05:23 Labs: Laboratory Results - last 24 hr 07/03/24 05:23 WBC 18.5 H RBC 3.26 L Hgb 10.1 L Hct 30.0 L MCV 92 MCH 31.0 MCHC 33.7 RDW Std Deviation 47.9 H Plt Count 358 D Neut % (Auto) 83 H Lymph % (Auto) 8 L [place] % (Auto) 7 Eos % (Auto) 1 Baso % (Auto) 0 Neut # (Auto) 15.4 H Lymph # (Auto) 1.5 [place] # (Auto) 1.2 H Eos # (Auto) 0.2 Baso # (Auto) 0.0 Immature Gran # (Auto) 0.11 H Absolute Nucleated RBC 0.00 Immature Gran % 1 H Nucleated RBC % 0 PT 13.4 H INR 1.2 APTT 34.8 Sodium 139 Potassium 3.7 D Chloride 100 Carbon Dioxide 27.8 Anion Gap 11 BUN < 5 L Creatinine < 0.2 L Estim Creat Clear Calc 297.7 eGFR > 60 BUN/Creatinine Ratio 25 H Glucose 89 Calculated Osmolality 273 L Calcium 9.1 Corrected Calcium 9.4 Phosphorus 2.8 Magnesium 2.0 Total Bilirubin 0.6 AST 17 ALT 32 Alkaline Phosphatase 80 Lactate Dehydrogenase 138 Total Protein 6.5 Albumin 3.6 Globulin 2.9 Albumin/Globulin Ratio 1.2 Random Vancomycin < 3.0 ABG Interpretation ABG results: 07/01/24 20:07 VBG pH 7.45 VBG pCO2 39 VBG pO2 121 H VBG Base Excess 2 Quality Measures Quality Measures VTE prophylaxis (Lovenox) Assessment & Plan Assessment Current Active Medications: Generic Name Dose Route Start Last Admin Trade Name Freq PRN Reason Stop Dose Admin Acetaminophen 650 mg 07/02/24 13:24 07/02/24 16:09 Acetaminophen 325 Mg Tablet PO 08/01/24 13:23 650 mg Q6HR PRN Administration Fever >100.4 or pain Albuterol/Ipratropium 3 ml 07/02/24 01:37 07/03/24 06:31 Albuterol/Ipratropium (Duoneb) Rt Amy 3 Ml Nebu INH 08/01/24 01:36 3 ml Q8H PRN Administration SHORTNESS OF BREATH OR WHEEZE Enoxaparin Sodium 40 mg 07/02/24 09:00 07/02/24 09:07 Enoxaparin Sod Inj 40 Mg/0.4 Ml Syringe SC 07/16/24 08:59 40 mg QDAY OLMAN Administration Cefepime HCl 2 gm/ Sodium 50 mls @ 100 mls/hr 07/02/24 06:15 07/03/24 05:32 Chloride IV 07/09/24 06:14 100 mls/hr Q8HR OLMAN Administration Vancomycin/Sodium Chloride 100 mls @ 120 mls/hr 07/03/24 07:30 07/03/24 09:05 Vancomycin/Ns 500 Mg Ivpb IV 07/10/24 07:29 120 mls/hr Q8HR OLMAN Administration Melatonin 3 mg 07/02/24 21:00 07/02/24 21:18 Melatonin 3 Mg Tablet PO 08/01/24 20:59 3 mg HS OLMAN Administration Pharmacy Consult 1 each 07/02/24 09:00 Vancomycin Pharmacy To Dose 1 Each Each IV 08/01/24 08:59 QDAY PRN CONSULT Sennosides 1 tab 07/02/24 01:45 Senna Tablet PO 08/01/24 08:59 QDAY PRN CONSTIPATION Protocol Plan Scot is a 33 y/o male with PMHx of limb-girdle muscular dystrophy type IIb, chronic trach, history of ESBL UTI and recurrent pneumonia who is admitted for IV antibiotics for pneumonia and managemtn of pleural effusions #Sepsis secondary to - ruled out #Hospital-acquired pneumonia versus ventilator associated pneumonia #Acute on chronic hypoxic respiratory failure #Pleural effusion, right side -Although pt meats SIRS 3/4: leukocytosis , tachycardia and fever, SOFA score is 1 and there is no signs of end organ damage therefore sepsis is ruled out -Lactate 2.2 -> 0.8 , Pro-George 0.17 -In the ED pt is given NS 1.25L Bolus -Urine culture on 06/28 - positive GNR -Pt has tracheostomy tube placed in 2023 -Chest CT shows prominent pneumonia in right lung along with atelectasis and right-sided moderate pleural effusion Plan: ? Cefepime 2g Q8H IV 07/02- ? Vancomycin IV pharmacy to dose 07/02- ? Azithromycin 06/26- 07/02 (Pt was started on azithromycin at the subacute) ? Follow-up MRSA screen ? Blood cultures no growth at 24 hrs ? Sputum culture on 06/28 grew pneudomonas, repeat cultures pending ? U/S guided Thoracentesis unsuccess on 07/03 due to insufficient fluid ? Continue with current ventilator settings ? DuoNebs every 8 hours as needed #Chest pain, right sided, improving Does not change with movement or stressful situations, was not given any nitro for this Chronically musculoskeletal or could be related to GERD or/and pleural effusions EKG shows normal sinus rhythm, rate of 98 Chest pain is resolved, unlikely ischemic, troponin negative #Hypercalcemia- resolved Chronic, likely related to hypercalcemia of immobilization on admission Ca 10.7 Plan: ? Trend with CMP #History of limb-girdle muscular dystrophy type IIb #History of chronic trach #Failure to thrive On ventilator VBG pH 7.45, pCO2 39 -Pt's BMI is 18.2 -Confirmed withsubacute, Pt is on oral feeds with regular diet Plan: ? resumed regular diet ? Registered dietitian referral #Health Maintenance Disposition: Telemetry DVT prophylaxis: Lovenox SC Qday GI prophylaxis: Protonix 40mg IVP Qday Diet: regular diet CODE STATUS: Full Assessment and plan discussed with my senior resident Dr. Julio & attending physician Dr. Kevin Sebastian (PGY-1)- Internal medicine resident Attending Provider Attestation/Addendum I have discussed and was present for the essential components of the history, physical examination, diagnosis, and treatment plan with the resident. I agree with the patient's care as documented by the resident and amended herein by me. Scot Brown, . Patient seen and evaluated this AM. No acute events overnight, BP soft 100/59, pulse 105, Tmax 101.5 overnight. States she thinks she feels well, no subjective complaints, scheduled for thoracentesis today however imaging at the time demonstrated small bilateral pleural effusions, which have likely decreased. Will continue IV antibiotics for suspected VAP, to include cefepime and vancomycin, blood cultures NGTD, urine cultures demonstrating GNR, will continue to monitor closely. Although this document has been carefully reviewed, there may still be some phonetic and other typographical errors. These errors are purely grammatical due to imperfections in the software program and should not be construed in any way to compromise the substance of the patient's medical care during this visit.
[2024-07-03] MEDS: PANTOPRAZOLE INJ 40 MG VIAL IVP (16:15)
[2024-07-03] MEDS: ACETAMINOPHEN 325 MG TABLET 650 MG PO (17:32)
--- NOTE | 2024-07-03 18:04 | EKG_ITS ---
[facility] Test Date: 2024-07-03 Pat Name: TERESA LAMBERT Department: Room: S268A Gender: Male Educational Speech Language Clinician: YADY : 1990 Requested By: Shelia Sebastian Order Number: [id number] Reading MD: Shelia Sebastian Measurements Intervals [place] Rate: 136 P: 54 [place]: 132 QRS: 95 QRSD: 90 T: 56 QT: 292 QTc: 440 Interpretive Statements SINUS TACHYCARDIA LATERAL MYOCARDIAL INFARCTION , OF INDETERMINATE AGE Compared to ECG 07/01/2024 18:57:14 Sinus rhythm no longer present Myocardial infarct finding still present /[id number]/[id number]
--- NOTE | 2024-07-03 18:17 | PC.NURSE ---
Dr Hernando Larsen notified that patient has had sustaining heart rate in the 140's. MD has ordered EKG. Awaiting further orders.
[2024-07-03] MEDS: RINGERS LACTATED 1000 ML 1,000 ML 999 ML IV (19:12)
[2024-07-03] MEDS: MELATONIN 3 MG TABLET PO (21:05)
[2024-07-04] VITALS (10 sets, daily range): BP systolic 95–121; BP diastolic 67–91; PULSE 94–118; RESP 12–38; TEMP 36.3–37.3; O2SAT 96–100; BMI 17.7
[2024-07-04] MEDS: CEFEPIME INJ 2 GM in SODIUM CHLORIDE 0.9% (Popper) 50 ML IV ×3 (05:17→21:11)
[2024-07-04 05:56] LABS: Basophils % (Auto) 0 % (0-2.5); Eosinophils # (Auto) 0.1 Thou/mm3 (0.0-0.5); Eosinophils % (Auto) 1 % (0-10); Hematocrit 28.7 % (41.0-53.0); Hemoglobin 9.6 g/dL (13.5-16.0); Immature Granulocytes % (Auto) 1 % (0-0); Immature Granulocytes Auto 0.14 Thou/mm3 (0.00-0.00); Lymphocytes # (Auto) 1.9 Thou/mm3 (1.0-4.8); Lymphocytes % (Auto) 11 % (10-50); Mean Corpuscular HGB Conc 33.4 g/dl (31.0-37.0); Mean Corpuscular Hemoglobin 30.7 pg (25.0-35.0); Mean Corpuscular Volume 92 fL (80-100); Monocytes # (Auto) 1.2 Thou/mm3 (0.0-0.8); Monocytes % (Auto) 7 % (0-12); Neutrophils # (Auto) 13.9 Thou/mm3 (1.8-7.7); Neutrophils % (Auto) 81 % (37-80); Nucleated Red Blood Cell % 0 /100 WBC (0); Platelet Count 350 Thou/mm3 (140-440); RDW Standard Deviation 47.1 fL (35.1-43.9); Red Blood Count 3.13 Miln/mm3 (4.50-5.90); White Blood Count 17.2 Thou/mm3 (3.8-10.6)
[2024-07-04 06:17] LABS: Alanine Aminotransferase 27 U/L (10-49); Albumin, Serum 3.6 gm/dL (3.5-5.0); Albumin/Globulin Ratio 1.3 (1.2-2.2); Alkaline Phosphatase 74 U/L (46-116); Anion Gap 9 (7-16); Aspartate Amino Transferase 25 U/L (0-34); BUN/Creatinine Ratio 25 Ratio (12-20); Bilirubin,Total 0.7 mg/dL (0.3-1.2); Blood Urea Nitrogen < 5 mg/dL (9-23); Calcium 9.2 mg/dL (8.3-10.6); Calcium (Corrected) 9.5 mg/dL (8.5-10.1); Carbon Dioxide 27.7 mMol/L (20.0-31.0); Chloride 100 mMol/L (98-107); Creatinine (Component) < 0.2 mg/dL (0.6-1.3); Estimated Creatinine Clearance 291.1 mL/min (>60); Globulin 2.7 gm/dL (2.3-3.5); Glucose 79 mg/dL (74-106); Magnesium 1.9 mg/dL (1.6-2.6); Osmolality,Calculated 270 (275-295); Phosphorous 2.6 mg/dL (2.4-5.1); Potassium 3.4 mMol/L (3.4-5.1); Sodium 137 mMol/L (136-145); Total Protein 6.3 gm/dL (5.7-8.2); Vancomycin,Trough 5.9 mcg/mL (5.0-10.0); eGFR > 60 See Note
[2024-07-04] MEDS: ALBUTEROL/IPRATROPIUM (Duoneb) RT SOL 3 ML NEBU INH (06:31)
[2024-07-04] MEDS: VANCOMYCIN/NS 500 MG IVPB 100 ML 120 MG IV (07:27)
[2024-07-04] MEDS: POTASSIUM CHLORIDE 20 mEq TABCR 40 MEQ PO (08:55)
[2024-07-04] MEDS: Magnesium Sulfate 2 GM Ivpb 2 GM/50 ML BAG IV (08:55)
[2024-07-04] MEDS: PANTOPRAZOLE INJ 40 MG VIAL IVP (08:55)
--- NOTE | 2024-07-04 10:46 | CHAP ---
Patient was visited by a Spiritual Care Volunteer on 07/04/2024 between 0910 and [id number] and received comfort, encouragement and/or prayer.
[2024-07-04] MEDS: LACTULOSE SYRUP 20 GM/30 ML UDC 10 GM PO (12:16)
[2024-07-04 13:04] LABS: Cocci Serology, IgM Negative (Negative)
--- NOTE | 2024-07-04 15:03 | PC.SS ---
SS follow up note; Patient is on IV ABX.
--- NOTE | 2024-07-04 15:31 | ESPR_ITS ---
<Statement entered by Sudheer Julio MD - 07/04/24 16:04> Patient was seen and examined at the bedside. No acute overnight events were reported. Patient reported has been feeling better. Vitals were stable.Labs revealed slightly improvement in white count. Electrolytes unremarkable. Kidney function stable. Vancomycin was discontinued given sputum and urine cultures growing GNR and MRSA screen negative. Blood cultures are coming negative x 48 hours. ICU hoop bender tank, Dr. Hernandez was consulted for loculated effusion on right side. He recommended to evaluate with bedside ultrasound for evaluation of empyema. He recommended that patient will need diagnostic pleural fluid evaluation only if there is a suspect of empyema does not need to be tapped if it is not infected as patient's current mobility is limited and does not effect patient's lung functions or lung capacity. Will continue with cefepime. No fever spikes recorded from last 24 to 48 hours. Heart rate has been better with IV fluids. Closely monitor and follow-up with final culture results. All labs and orders were reviewed. I saw and examined the patient, and I agree with current management stated by Dr Romulo MD,PGY1. Plan of care was discussed with the attending physician and resident physician. Disclaimer: Despite multiple revisions, due to the dictation software being used, the document bellow may not be free of grammatical errors including phonetic/typographic errors. However, this does not deter from our commitment to providing health care in the patient's best interest in mind. Dr. Avery MD, PGY 2 Documentation for date of: 07/04/24 Subjective Subjective Interval history: No acute overnight event reported. Patient seen and examined at bedside this morning. Patient denies any shortness of breath and endorses to improvement of his cough he remained afebrile overnight. Vitals are stable, patient is mildly tachycardic. Patient states he always have dysuria especially when he has not urinated in a while. Patient does not have a Avendaño catheter. Significant labs include WBC downtrending 17.2, when stable at 9.6 potassium 3.4 and 40 mEq is repleted. Patient states that he had a having a bowel movement yesterday and normally in the subacute he uses lactulose as part of his bowel regimen therefore we will switch senna to lactulose because nothing else worked for him as per patient. Patient is continued on cefepime for hap versus And will discontinue vancomycin due to negative MRSA. ET secretions are cultures grew GNR speciation is pending. IR was unable to perform thoracenthesis due to insufficient fluid. ICU team is consulted for further recommendation on likelyhood of fluid being empyema, bedside ultrasound performed and right pleural effusions are not free flowing. Will continue to monitor for increased accumulation. Exam Vital Signs Temp Pulse Resp BP Pulse Ox O2 Del Method FiO2 98.4 F 108 H 24 H 95/67 96 Mechanical Ventilation 40 07/04/24 12:00 07/04/24 12:00 07/04/24 12:00 07/04/24 12:00 07/04/24 12:00 07/04/24 12:00 07/04/24 12:00 Narrative Exam GENERAL: A&Ox3 . Awake frail young man, obvious signs of muscle wasting and muscular dystrophy NEURO: no focal neurological deficits HEENT: Atraumatic, Normocephalic. mucous membranes moist. Eyes open, symmetrical, & clear, tracheostomy tube pleasant HEART: Normal Heart Sounds LUNGS: breath sounds heard bilaterally ABDOMEN: soft, non-distended, non-tender, bowel sounds heard, no guarding or rebound tenderness SKIN: No Rash or ecchymoses EXTREMITIES: No edema, tenderness, contracted bilateral LE Objective Labs 07/05/24 04:58 07/05/24 04:58 Labs: Laboratory Results - last 24 hr 07/04/24 07/04/24 05:32 10:50 WBC 17.2 H RBC 3.13 L Hgb 9.6 L Hct 28.7 L MCV 92 MCH 30.7 MCHC 33.4 RDW Std Deviation 47.1 H Plt Count 350 Neut % (Auto) 81 H Lymph % (Auto) 11 [place] % (Auto) 7 Eos % (Auto) 1 Baso % (Auto) 0 Neut # (Auto) 13.9 H Lymph # (Auto) 1.9 [place] # (Auto) 1.2 H Eos # (Auto) 0.1 Baso # (Auto) 0.0 Immature Gran # (Auto) 0.14 H Absolute Nucleated RBC 0.00 Immature Gran % 1 H Nucleated RBC % 0 Sodium 137 Potassium 3.4 Chloride 100 Carbon Dioxide 27.7 Anion Gap 9 BUN < 5 L Creatinine < 0.2 L Estim Creat Clear Calc 291.1 eGFR > 60 BUN/Creatinine Ratio 25 H Glucose 79 Calculated Osmolality 270 L Calcium 9.2 Corrected Calcium 9.5 Phosphorus 2.6 Magnesium 1.9 Total Bilirubin 0.7 AST 25 ALT 27 Alkaline Phosphatase 74 Total Protein 6.3 Albumin 3.6 Globulin 2.7 Albumin/Globulin Ratio 1.3 Vancomycin Trough 5.9 Coccidioides IgM Ab Negative ABG Interpretation ABG results: 07/01/24 20:07 VBG pH 7.45 VBG pCO2 39 VBG pO2 121 H VBG Base Excess 2 Quality Measures Quality Measures VTE prophylaxis (Lovenox) Assessment & Plan Assessment Current Active Medications: Generic Name Dose Route Start Last Admin Trade Name Freq PRN Reason Stop Dose Admin Acetaminophen 650 mg 07/02/24 13:24 07/03/24 17:32 Acetaminophen 325 Mg Tablet PO 08/01/24 13:23 650 mg Q6HR PRN Administration Fever >100.4 or pain Albuterol/Ipratropium 3 ml 07/02/24 01:37 07/04/24 06:31 Albuterol/Ipratropium (Duoneb) Rt Amy 3 Ml Nebu INH 08/01/24 01:36 3 ml Q8H PRN Administration SHORTNESS OF BREATH OR WHEEZE Enoxaparin Sodium 40 mg 07/02/24 09:00 07/02/24 09:07 Enoxaparin Sod Inj 40 Mg/0.4 Ml Syringe SC 07/16/24 08:59 40 mg QDAY OLMAN Administration Cefepime HCl 2 gm/ Sodium 50 mls @ 100 mls/hr 07/02/24 06:15 07/04/24 13:13 Chloride IV 07/09/24 06:14 100 mls/hr Q8HR OLMAN Administration Lactulose 10 gm 07/04/24 10:15 07/04/24 12:16 Lactulose Syrup 20 Gm/30 Ml Udc PO 08/03/24 13:59 10 gm TID PRN Administration constipation Protocol Melatonin 3 mg 07/02/24 21:00 07/03/24 21:05 Melatonin 3 Mg Tablet PO 08/01/24 20:59 3 mg HS OLMAN Administration Pantoprazole Sodium 40 mg 07/03/24 15:45 07/04/24 08:55 Pantoprazole Inj 40 Mg Vial IVP 08/02/24 15:44 40 mg QDAY OLMAN Administration Plan Scot is a 33 y/o male with PMHx of limb-girdle muscular dystrophy type IIb, chronic trach, history of ESBL UTI and recurrent pneumonia who is admitted for IV antibiotics for pneumonia and managemtn of pleural effusions #Sepsis secondary to - ruled out #Hospital-acquired pneumonia versus ventilator associated pneumonia #Acute on chronic hypoxic respiratory failure #Pleural effusion, right side -Although pt meats SIRS 3/4: leukocytosis , tachycardia and fever, SOFA score is 1 and there is no signs of end organ damage therefore sepsis is ruled out -Lactate 2.2 -> 0.8 , Pro-George 0.17 -In the ED pt is given NS 1.25L Bolus -Urine culture on 06/28 - positive GNR -Pt has tracheostomy tube placed in 2023 -Chest CT shows prominent pneumonia in right lung along with atelectasis and right-sided moderate pleural effusion Plan: ? Cefepime 2g Q8H IV 07/02- ? Vancomycin IV pharmacy to dose 07/02-07/04 ? Azithromycin 06/26- 07/02 (Pt was started on azithromycin at the subacute) ? MRSA negative, discotinued vancomycin ? Blood cultures no growth at 24 hrs ? Sputum culture on 06/28 grew pneudomonas, repeat cultures pending ? U/S guided Thoracentesis unsuccess on 07/03 due to insufficient fluid observed via ultrasound ? Continue with current ventilator settings ? DuoNebs every 8 hours as needed #Chest pain, right sided, improving Does not change with movement or stressful situations, was not given any nitro for this Chronically musculoskeletal or could be related to GERD or/and pleural effusions EKG shows normal sinus rhythm, rate of 98 Chest pain is resolved, unlikely ischemic, troponin negative #Hypercalcemia- resolved Chronic, likely related to hypercalcemia of immobilization on admission Ca 10.7 Plan: ? Trend with CMP #History of limb-girdle muscular dystrophy type IIb #History of chronic trach #Failure to thrive On ventilator VBG pH 7.45, pCO2 39 -Pt's BMI is 18.2 -Confirmed withsubacute, Pt is on oral feeds with regular diet Plan: ? resumed regular diet ? Registered dietitian referral #Severe Protein Malnutrition BMI 17.7 and age 33 and Pt has chronic condition of muscular dystrophy with abvious signs of muscle wasting and chroniclly bedbound plan: -consult to dietitian is place -Pt is able to tolerate oral feeds- ensure plus high protein shakes and snack between meals and regular diet as per dietition recommendation #Health Maintenance Disposition: Telemetry DVT prophylaxis: Lovenox SC Qday GI prophylaxis: Protonix 40mg IVP Qday Diet: regular diet CODE STATUS: Full Assessment and plan discussed with my senior resident Dr. Julio & attending physician Dr. Connor Sebastian (PGY-1)- Internal medicine resident Attending Provider Attestation/Addendum I reviewed labs, imaging, EKG, home medications and prior available records. Face to face evaluation was performed by me. I have personally examined the patient and discussed assessment and plan with the IM team. I reviewed the resident note and agree with the plan with exceptions as below. Acute hypoxic respiratory failure Muscular dystrophy Sinus tachycardia Right lower lobe pneumonia, community-acquired pneumonia versus aspiration pneumonia Right pleural effusion Cocci IgM is negative Discussed with pulmonology: Recommended to repeat ultrasound of the right lung Frequent suctioning Continue antibiotics: Cefepime Trend WBC: Downtrending Wean off oxygen as tolerated
[2024-07-04] MEDS: ACETAMINOPHEN 325 MG TABLET 650 MG PO (18:21)
[2024-07-04] MEDS: MELATONIN 3 MG TABLET PO (21:11)
[2024-07-05] VITALS (11 sets, daily range): BP systolic 95–105; BP diastolic 71–77; PULSE 85–107; RESP 12–35; TEMP 36.5–36.8; O2SAT 98–100; BMI 18.1
[2024-07-05] MEDS: CEFEPIME INJ 2 GM in SODIUM CHLORIDE 0.9% (Popper) 50 ML IV ×3 (05:03→21:58)
[2024-07-05 06:06] LABS: Basophils # (Auto) 0.1 Thou/mm3 (0.0-0.2); Basophils % (Auto) 0 % (0-2.5); Eosinophils # (Auto) 0.3 Thou/mm3 (0.0-0.5); Eosinophils % (Auto) 2 % (0-10); Hematocrit 31.5 % (41.0-53.0); Hemoglobin 10.6 g/dL (13.5-16.0); Immature Granulocytes % (Auto) 1 % (0-0); Immature Granulocytes Auto 0.14 Thou/mm3 (0.00-0.00); Lymphocytes # (Auto) 1.9 Thou/mm3 (1.0-4.8); Lymphocytes % (Auto) 13 % (10-50); Mean Corpuscular HGB Conc 33.7 g/dl (31.0-37.0); Mean Corpuscular Hemoglobin 30.1 pg (25.0-35.0); Mean Corpuscular Volume 90 fL (80-100); Monocytes % (Auto) 7 % (0-12); Neutrophils # (Auto) 11.1 Thou/mm3 (1.8-7.7); Neutrophils % (Auto) 77 % (37-80); Nucleated Red Blood Cell % 0 /100 WBC (0); Platelet Count 458 Thou/mm3 (140-440); RDW Standard Deviation 45.6 fL (35.1-43.9); Red Blood Count 3.52 Miln/mm3 (4.50-5.90); White Blood Count 14.5 Thou/mm3 (3.8-10.6)
[2024-07-05 06:31] LABS: Alanine Aminotransferase 26 U/L (10-49); Albumin, Serum 3.9 gm/dL (3.5-5.0); Albumin/Globulin Ratio 1.3 (1.2-2.2); Alkaline Phosphatase 84 U/L (46-116); Anion Gap 9 (7-16); Aspartate Amino Transferase 24 U/L (0-34); BUN/Creatinine Ratio 30 Ratio (12-20); Bilirubin,Total 0.4 mg/dL (0.3-1.2); Blood Urea Nitrogen 6 mg/dL (9-23); Calcium 9.9 mg/dL (8.3-10.6); Carbon Dioxide 28.6 mMol/L (20.0-31.0); Chloride 98 mMol/L (98-107); Creatinine (Component) 0.2 mg/dL (0.6-1.3); Estimated Creatinine Clearance 297.7 mL/min (>60); Globulin 3.1 gm/dL (2.3-3.5); Glucose 92 mg/dL (74-106); Magnesium 2.1 mg/dL (1.6-2.6); Osmolality,Calculated 269 (275-295); Phosphorous 2.8 mg/dL (2.4-5.1); Sodium 136 mMol/L (136-145); eGFR > 60 See Note
[2024-07-05] MEDS: PANTOPRAZOLE INJ 40 MG VIAL IVP (09:04)
[2024-07-05 11:09] LABS: Cocci Serology, IgG Negative (Negative)
--- NOTE | 2024-07-05 13:28 | ESPR_ITS ---
<Statement entered by Sudheer Julio MD - 07/05/24 18:35> Patient was seen and examined at the bedside. No acute overnight events were reported. Patient was coughing however improved and remained afebrile. White count mildly improved. Currently we are waiting on final cultures results for sputum and urine for GNR. Will continue with cefepime. All labs and orders were reviewed. I saw and examined the patient, and I agree with current management stated by Dr Romulo MD,PGY1. Plan of care was discussed with the attending physician and resident physician. Disclaimer: Despite multiple revisions, due to the dictation software being used, the document bellow may not be free of grammatical errors including phonetic/typographic errors. However, this does not deter from our commitment to providing health care in the patient's best interest in mind. Dr. Nori MD, PGY 2 Documentation for date of: 07/05/24 Subjective Subjective Interval history: No acute overnight events reported patient seen and examined this morning patient states he still has a cough but has improved, has remained afebrile overnight. Patient had a large bowel movement to those. Vitals are stable WBC count is up for 48 hours in ED and urine cultures growing GNR. Pending speciation. Currently patient is on cefepime. Exam Vital Signs Temp Pulse Resp BP Pulse Ox O2 Del Method FiO2 98.1 F 103 H 20 95/73 100 Mechanical Ventilation 40 07/05/24 08:00 07/05/24 12:05 07/05/24 08:00 07/05/24 08:00 07/05/24 12:05 07/05/24 08:00 07/05/24 12:05 Narrative Exam GENERAL: A&Ox3 . Awake frail young man, obvious signs of muscle wasting and muscular dystrophy NEURO: no focal neurological deficits HEENT: Atraumatic, Normocephalic. mucous membranes moist. Eyes open, symmetrical, & clear, tracheostomy tube present HEART: Normal Heart Sounds LUNGS:clear breath sounds heard bilaterally ABDOMEN: soft, non-distended, non-tender, bowel sounds heard, no guarding or rebound tenderness SKIN: No Rash or ecchymoses EXTREMITIES: No edema, tenderness, contracted bilateral LE Objective Labs 07/06/24 05:09 07/06/24 05:09 Labs: Laboratory Results - last 24 hr 07/04/24 07/05/24 10:50 04:58 WBC 14.5 H RBC 3.52 L Hgb 10.6 L Hct 31.5 L MCV 90 MCH 30.1 MCHC 33.7 RDW Std Deviation 45.6 H Plt Count 458 H D Neut % (Auto) 77 Lymph % (Auto) 13 [place] % (Auto) 7 Eos % (Auto) 2 Baso % (Auto) 0 Neut # (Auto) 11.1 H Lymph # (Auto) 1.9 [place] # (Auto) 1.0 H Eos # (Auto) 0.3 Baso # (Auto) 0.1 Immature Gran # (Auto) 0.14 H Absolute Nucleated RBC 0.00 Immature Gran % 1 H Nucleated RBC % 0 Sodium 136 Potassium 4.0 D Chloride 98 Carbon Dioxide 28.6 Anion Gap 9 BUN 6 L Creatinine 0.2 L Estim Creat Clear Calc 297.7 eGFR > 60 BUN/Creatinine Ratio 30 H Glucose 92 Calculated Osmolality 269 L Calcium 9.9 Corrected Calcium 10.0 Phosphorus 2.8 Magnesium 2.1 Total Bilirubin 0.4 AST 24 ALT 26 Alkaline Phosphatase 84 Total Protein 7.0 Albumin 3.9 Globulin 3.1 Albumin/Globulin Ratio 1.3 Coccidioides IgG Ab Negative ABG Interpretation ABG results: 07/01/24 20:07 VBG pH 7.45 VBG pCO2 39 VBG pO2 121 H VBG Base Excess 2 Quality Measures Quality Measures VTE prophylaxis (Lovenox) Assessment & Plan Assessment Current Active Medications: Generic Name Dose Route Start Last Admin Trade Name Freq PRN Reason Stop Dose Admin Acetaminophen 650 mg 07/02/24 13:24 07/04/24 18:21 Acetaminophen 325 Mg Tablet PO 08/01/24 13:23 650 mg Q6HR PRN Administration Fever >100.4 or pain Albuterol/Ipratropium 3 ml 07/02/24 01:37 07/04/24 06:31 Albuterol/Ipratropium (Duoneb) Rt Amy 3 Ml Nebu INH 08/01/24 01:36 3 ml Q8H PRN Administration SHORTNESS OF BREATH OR WHEEZE Enoxaparin Sodium 40 mg 07/02/24 09:00 07/02/24 09:07 Enoxaparin Sod Inj 40 Mg/0.4 Ml Syringe SC 07/16/24 08:59 40 mg QDAY OLMAN Administration Cefepime HCl 2 gm/ Sodium 50 mls @ 100 mls/hr 07/02/24 06:15 07/05/24 07:15 Chloride IV 07/09/24 06:14 Infused Q8HR OLMAN Infusion Lactulose 10 gm 07/04/24 10:15 07/04/24 12:16 Lactulose Syrup 20 Gm/30 Ml Udc PO 08/03/24 13:59 10 gm TID PRN Administration constipation Protocol Melatonin 3 mg 07/02/24 21:00 07/04/24 21:11 Melatonin 3 Mg Tablet PO 08/01/24 20:59 3 mg HS OLMAN Administration Pantoprazole Sodium 40 mg 07/03/24 15:45 07/05/24 09:04 Pantoprazole Inj 40 Mg Vial IVP 08/02/24 15:44 40 mg QDAY OLMAN Administration Plan Scot is a 33 y/o male with PMHx of limb-girdle muscular dystrophy type IIb, chronic trach, history of ESBL UTI and recurrent pneumonia who is admitted for IV antibiotics for pneumonia and managemtn of pleural effusions #Sepsis secondary to - ruled out #Hospital-acquired pneumonia versus ventilator associated pneumonia #Acute on chronic hypoxic respiratory failure #Pleural effusion, right side -Although pt meats SIRS 3/4: leukocytosis , tachycardia and fever, SOFA score is 1 and there is no signs of end organ damage therefore sepsis is ruled out -Lactate 2.2 -> 0.8 , Pro-George 0.17 -In the ED pt is given NS 1.25L Bolus -Urine culture on 06/28 - positive GNR -Pt has tracheostomy tube placed in 2023 -Chest CT shows prominent pneumonia in right lung along with atelectasis and right-sided moderate pleural effusion -Cocci IgM negative Plan: ? Cefepime 2g Q8H IV 07/02- ? Vancomycin IV pharmacy to dose 07/02-07/04 ? Azithromycin 06/26- 07/02 (Pt was started on azithromycin at the subacute) ? MRSA negative, discotinued vancomycin ? Blood cultures no growth at 24 hrs ? Sputum culture on 06/28 grew pneudomonas - ET and Urine cultures - GNR ? U/S guided Thoracentesis unsuccessful on 07/03 due to insufficient fluid observed via ultrasound ? Continue with current ventilator settings ? DuoNebs every 8 hours as needed #Chest pain, right sided, improving Does not change with movement or stressful situations, was not given any nitro for this Chronically musculoskeletal or could be related to GERD or/and pleural effusions EKG shows normal sinus rhythm, rate of 98 Chest pain is resolved, unlikely ischemic, troponin negative #Hypercalcemia- resolved Chronic, likely related to hypercalcemia of immobilization on admission Ca 10.7 Plan: ? Trend with CMP #History of limb-girdle muscular dystrophy type IIb #History of chronic trach #Failure to thrive On ventilator VBG pH 7.45, pCO2 39 -Pt's BMI is 18.2 -Confirmed withsubacute, Pt is on oral feeds with regular diet Plan: ? resumed regular diet ? Registered dietitian referral #Severe Protein Malnutrition BMI 17.7 and age 33 and Pt has chronic condition of muscular dystrophy with abvious signs of muscle wasting and chronically bedbound plan: -consult to dietitian is place -Pt is able to tolerate oral feeds- ensure plus high protein shakes and snack between meals and regular diet as per dietitian recommendation #Health Maintenance Disposition: Telemetry DVT prophylaxis: Lovenox SC Qday GI prophylaxis: Protonix 40mg IVP Qday Diet: regular diet CODE STATUS: Full Assessment and plan discussed with my senior resident Dr. Julio & attending physician Dr. Connor Sebastian (PGY-1)- Internal medicine resident Attending Provider Attestation/Addendum I reviewed labs, imaging, EKG, home medications and prior available records. Face to face evaluation was performed by me. I have personally examined the patient and discussed assessment and plan with the IM team. I reviewed the resident note and agree with the plan with exceptions as below. Acute hypoxic respiratory failure Muscular dystrophy Sinus tachycardia Right lower lobe pneumonia, community-acquired pneumonia versus aspiration pneumonia Right pleural effusion Cocci IgM is negative Insufficient pleural fluid for drain Frequent suctioning Continue antibiotics: Cefepime Follow-up sputum culture: Showing gram-negative rods Trend WBC: Downtrending Wean off oxygen as tolerated
[2024-07-05] MEDS: ACETAMINOPHEN 325 MG TABLET 650 MG PO (18:15)
[2024-07-05] MEDS: MELATONIN 3 MG TABLET PO (21:58)
[2024-07-06] VITALS (11 sets, daily range): BP systolic 89–106; BP diastolic 66–75; PULSE 73–113; RESP 15–35; TEMP 36.2–36.8; O2SAT 95–100; BMI 18.1
[2024-07-06] MEDS: CEFEPIME INJ 2 GM in SODIUM CHLORIDE 0.9% (Popper) 50 ML IV ×2 (05:23→21:31)
[2024-07-06 05:42] LABS: Basophils # (Auto) 0.1 Thou/mm3 (0.0-0.2); Basophils % (Auto) 1 % (0-2.5); Eosinophils # (Auto) 0.5 Thou/mm3 (0.0-0.5); Eosinophils % (Auto) 5 % (0-10); Hematocrit 31.5 % (41.0-53.0); Hemoglobin 10.1 g/dL (13.5-16.0); Immature Granulocytes % (Auto) 1 % (0-0); Immature Granulocytes Auto 0.09 Thou/mm3 (0.00-0.00); Lymphocytes # (Auto) 1.9 Thou/mm3 (1.0-4.8); Lymphocytes % (Auto) 17 % (10-50); Mean Corpuscular HGB Conc 32.1 g/dl (31.0-37.0); Mean Corpuscular Hemoglobin 30.3 pg (25.0-35.0); Mean Corpuscular Volume 95 fL (80-100); Monocytes # (Auto) 0.7 Thou/mm3 (0.0-0.8); Monocytes % (Auto) 7 % (0-12); Neutrophils # (Auto) 7.6 Thou/mm3 (1.8-7.7); Neutrophils % (Auto) 70 % (37-80); Nucleated Red Blood Cell % 0 /100 WBC (0); Platelet Count 458 Thou/mm3 (140-440); RDW Standard Deviation 48.3 fL (35.1-43.9); Red Blood Count 3.33 Miln/mm3 (4.50-5.90); White Blood Count 10.9 Thou/mm3 (3.8-10.6)
[2024-07-06 07:04] LABS: Alanine Aminotransferase 28 U/L (10-49); Albumin, Serum 3.9 gm/dL (3.5-5.0); Albumin/Globulin Ratio 1.3 (1.2-2.2); Alkaline Phosphatase 76 U/L (46-116); Anion Gap 11 (7-16); Aspartate Amino Transferase 26 U/L (0-34); BUN/Creatinine Ratio 45 Ratio (12-20); Bilirubin,Total 0.2 mg/dL (0.3-1.2); Blood Urea Nitrogen 9 mg/dL (9-23); Calcium 10.5 mg/dL (8.3-10.6); Calcium (Corrected) 10.6 mg/dL (8.5-10.1); Carbon Dioxide 26.2 mMol/L (20.0-31.0); Chloride 102 mMol/L (98-107); Creatinine (Component) < 0.2 mg/dL (0.6-1.3); Estimated Creatinine Clearance 297.7 mL/min (>60); Globulin 3.1 gm/dL (2.3-3.5); Glucose 91 mg/dL (74-106); Magnesium 2.1 mg/dL (1.6-2.6); Osmolality,Calculated 276 (275-295); Potassium 4.5 mMol/L (3.4-5.1); Sodium 139 mMol/L (136-145); eGFR > 60 See Note
[2024-07-06] MEDS: PANTOPRAZOLE INJ 40 MG VIAL IVP (09:22)
--- NOTE | 2024-07-06 09:38 | PC.SS ---
SS follow up note; Pending urine and sputum cultures.
--- NOTE | 2024-07-06 17:09 | ESPR_ITS ---
<Statement entered by Sudheer Julio MD - 07/06/24 17:16> Patient was seen and examined at the bedside. No acute overnight events were reported. Patient was feeling better. No fever spikes or white count is downtrending. Currently awaiting sputum and urine culture speciation. Will continue with cefepime for GNR. Anticipating discharge tomorrow once cultures results are finalized. Blood pressure was soft and can be given IV fluids if necessary. Hemoglobin stable at 10.0. All labs and orders were reviewed. I saw and examined the patient, and I agree with current management stated by Dr Romulo MD,PGY1. Plan of care was discussed with the attending physician and resident physician. Disclaimer: Despite multiple revisions, due to the dictation software being used, the document bellow may not be free of grammatical errors including phonetic/typographic errors. However, this does not deter from our commitment to providing health care in the patient's best interest in mind. Dr. Avery MD, PGY 2 Documentation for date of: 07/06/24 Subjective Subjective Interval history: No acute overnight events reported. Patient seen and examined examined at bedside this morning. Patient denies any chest pain or abdominal pain states he did not have a bowel movement yesterday and did not also take lactulose yesterday. Patient states he still has a cough but endorses to improvement of the cough. Vitals are stable and labs stable. WBC count has down trended to 10.9. Patient is still pending speciation for the urine culture and ET culture which grew GNR. Patient is currently on cefepime patient has no other complaints. Exam Vital Signs Temp Pulse Resp BP Pulse Ox O2 Del Method FiO2 97.4 F 110 H 23 H 106/74 95 Mechanical Ventilation 40 07/06/24 12:00 07/06/24 12:46 07/06/24 12:00 07/06/24 12:00 07/06/24 12:46 07/06/24 12:00 07/06/24 16:00 Narrative Exam GENERAL: A&Ox3 . Awake frail young man, obvious signs of muscle wasting and muscular dystrophy NEURO: no focal neurological deficits HEENT: Atraumatic, Normocephalic. mucous membranes moist. Eyes open, symmetrical, & clear, tracheostomy tube present HEART: Normal Heart Sounds LUNGS:clear breath sounds heard bilaterally ABDOMEN: soft, non-distended, non-tender, bowel sounds heard, no guarding or rebound tenderness SKIN: No Rash or ecchymoses EXTREMITIES: No edema, tenderness, contracted bilateral LE Objective Labs 07/07/24 05:33 07/07/24 05:33 Labs: Laboratory Results - last 24 hr 07/06/24 05:09 WBC 10.9 H RBC 3.33 L Hgb 10.1 L Hct 31.5 L MCV 95 MCH 30.3 MCHC 32.1 RDW Std Deviation 48.3 H Plt Count 458 H Neut % (Auto) 70 Lymph % (Auto) 17 [place] % (Auto) 7 Eos % (Auto) 5 Baso % (Auto) 1 Neut # (Auto) 7.6 Lymph # (Auto) 1.9 [place] # (Auto) 0.7 Eos # (Auto) 0.5 Baso # (Auto) 0.1 Immature Gran # (Auto) 0.09 H Absolute Nucleated RBC 0.00 Immature Gran % 1 H Nucleated RBC % 0 Sodium 139 Potassium 4.5 D Chloride 102 Carbon Dioxide 26.2 Anion Gap 11 BUN 9 Creatinine < 0.2 L Estim Creat Clear Calc 297.7 eGFR > 60 BUN/Creatinine Ratio 45 H Glucose 91 Calculated Osmolality 276 Calcium 10.5 Corrected Calcium 10.6 H Magnesium 2.1 Total Bilirubin 0.2 L AST 26 ALT 28 Alkaline Phosphatase 76 Total Protein 7.0 Albumin 3.9 Globulin 3.1 Albumin/Globulin Ratio 1.3 ABG Interpretation ABG results: 07/01/24 20:07 VBG pH 7.45 VBG pCO2 39 VBG pO2 121 H VBG Base Excess 2 Quality Measures Quality Measures VTE prophylaxis (Lovenox) Assessment & Plan Assessment Current Active Medications: Generic Name Dose Route Start Last Admin Trade Name Freq PRN Reason Stop Dose Admin Acetaminophen 650 mg 07/02/24 13:24 07/05/24 18:15 Acetaminophen 325 Mg Tablet PO 08/01/24 13:23 650 mg Q6HR PRN Administration Fever >100.4 or pain Albuterol/Ipratropium 3 ml 07/02/24 01:37 07/04/24 06:31 Albuterol/Ipratropium (Duoneb) Rt Amy 3 Ml Nebu INH 08/01/24 01:36 3 ml Q8H PRN Administration SHORTNESS OF BREATH OR WHEEZE Enoxaparin Sodium 40 mg 07/02/24 09:00 07/02/24 09:07 Enoxaparin Sod Inj 40 Mg/0.4 Ml Syringe SC 07/16/24 08:59 40 mg QDAY OLMAN Administration Cefepime HCl 2 gm/ Sodium 50 mls @ 100 mls/hr 07/02/24 06:15 07/06/24 09:22 Chloride IV 07/09/24 06:14 Infused Q8HR OLMAN Infusion Lactulose 10 gm 07/04/24 10:15 07/04/24 12:16 Lactulose Syrup 20 Gm/30 Ml Udc PO 08/03/24 13:59 10 gm TID PRN Administration constipation Protocol Melatonin 3 mg 07/02/24 21:00 07/05/24 21:58 Melatonin 3 Mg Tablet PO 08/01/24 20:59 3 mg HS OLMAN Administration Pantoprazole Sodium 40 mg 07/03/24 15:45 07/06/24 09:22 Pantoprazole Inj 40 Mg Vial IVP 08/02/24 15:44 40 mg QDAY OLMAN Administration Plan Scot is a 33 y/o male with PMHx of limb-girdle muscular dystrophy type IIb, chronic trach, history of ESBL UTI and recurrent pneumonia who is admitted for IV antibiotics for pneumonia and managemtn of pleural effusions #Sepsis secondary to - ruled out #Hospital-acquired pneumonia versus ventilator associated pneumonia #Acute on chronic hypoxic respiratory failure #Pleural effusion, right side -Although pt meats SIRS 3/4: leukocytosis , tachycardia and fever, SOFA score is 1 and there is no signs of end organ damage therefore sepsis is ruled out -Lactate 2.2 -> 0.8 , Pro-George 0.17 -In the ED pt is given NS 1.25L Bolus -Urine culture on 06/28 - positive GNR -Pt has tracheostomy tube placed in 2023 -Chest CT shows prominent pneumonia in right lung along with atelectasis and right-sided moderate pleural effusion -Cocci IgM negative Plan: ? Cefepime 2g Q8H IV 07/02- ? Vancomycin IV pharmacy to dose 07/02-07/04 ? Azithromycin 06/26- 07/02 (Pt was started on azithromycin at the subacute) ? MRSA negative, discontinued vancomycin ? Blood cultures no growth at 24 hrs ? Sputum culture on 06/28 grew pneudomonas - ET and Urine cultures - GNR pending speciation of the bacteria ? U/S guided Thoracentesis unsuccessful on 07/03 due to insufficient fluid observed via ultrasound ? Continue with current ventilator settings ? DuoNebs every 8 hours as needed #Chest pain, right sided, improving Does not change with movement or stressful situations, was not given any nitro for this Chronically musculoskeletal or could be related to GERD or/and pleural effusions EKG shows normal sinus rhythm, rate of 98 Chest pain is resolved, unlikely ischemic, troponin negative #Hypercalcemia- resolved Chronic, likely related to hypercalcemia of immobilization on admission Ca 10.7 Plan: ? Trend with CMP #History of limb-girdle muscular dystrophy type IIb #History of chronic trach #Failure to thrive On ventilator VBG pH 7.45, pCO2 39 -Pt's BMI is 18.2 -Confirmed withsubacute, Pt is on oral feeds with regular diet Plan: ? resumed regular diet ? Registered dietitian referral #Severe Protein Malnutrition BMI 17.7 and age 33 and Pt has chronic condition of muscular dystrophy with abvious signs of muscle wasting and chronically bedbound plan: -consult to dietitian is place -Pt is able to tolerate oral feeds- ensure plus high protein shakes and snack between meals and regular diet as per dietitian recommendation #Health Maintenance Disposition: Telemetry DVT prophylaxis: Lovenox SC Qday GI prophylaxis: Protonix 40mg IVP Qday Diet: regular diet CODE STATUS: Full Assessment and plan discussed with my senior resident Dr. Julio & attending physician Dr. Connor Sebastian (PGY-1)- Internal medicine resident Attending Provider Attestation/Addendum I reviewed labs, imaging, EKG, home medications and prior available records. Face to face evaluation was performed by me. I have personally examined the patient and discussed assessment and plan with the IM team. I reviewed the resident note and agree with the plan with exceptions as below. Acute hypoxic respiratory failure Muscular dystrophy Sinus tachycardia Right lower lobe pneumonia, community-acquired pneumonia versus aspiration pneumonia Right pleural effusion Cocci IgM is negative Insufficient pleural fluid for drain Frequent suctioning Continue antibiotics: Cefepime Follow-up sputum culture: Showing gram-negative rods. Discussed with lab: Results will be delayed till 07/07 morning Trend WBC: Downtrending Wean off oxygen as tolerated
[2024-07-06] MEDS: MELATONIN 3 MG TABLET PO (21:30)
[2024-07-07] VITALS (11 sets, daily range): BP systolic 96–109; BP diastolic 67–84; PULSE 80–108; RESP 21–32; TEMP 36.1–36.7; O2SAT 94–100; BMI 18.1
[2024-07-07] MEDS: CEFEPIME INJ 2 GM in SODIUM CHLORIDE 0.9% (Popper) 50 ML IV ×3 (05:35→21:00)
[2024-07-07 06:37] LABS: Basophils # (Auto) 0.1 Thou/mm3 (0.0-0.2); Basophils % (Auto) 1 % (0-2.5); Eosinophils # (Auto) 0.6 Thou/mm3 (0.0-0.5); Eosinophils % (Auto) 4 % (0-10); Hematocrit 28.8 % (41.0-53.0); Hemoglobin 9.5 g/dL (13.5-16.0); Immature Granulocytes % (Auto) 1 % (0-0); Immature Granulocytes Auto 0.16 Thou/mm3 (0.00-0.00); Lymphocytes # (Auto) 2.1 Thou/mm3 (1.0-4.8); Lymphocytes % (Auto) 15 % (10-50); Mean Corpuscular Hemoglobin 30.1 pg (25.0-35.0); Mean Corpuscular Volume 91 fL (80-100); Monocytes # (Auto) 1.1 Thou/mm3 (0.0-0.8); Monocytes % (Auto) 8 % (0-12); Neutrophils # (Auto) 10.1 Thou/mm3 (1.8-7.7); Neutrophils % (Auto) 72 % (37-80); Nucleated Red Blood Cell % 0 /100 WBC (0); Platelet Count 508 Thou/mm3 (140-440); RDW Standard Deviation 46.6 fL (35.1-43.9); Red Blood Count 3.16 Miln/mm3 (4.50-5.90); White Blood Count 14.1 Thou/mm3 (3.8-10.6)
[2024-07-07 06:52] LABS: Alanine Aminotransferase 25 U/L (10-49); Albumin, Serum 3.8 gm/dL (3.5-5.0); Albumin/Globulin Ratio 1.3 (1.2-2.2); Alkaline Phosphatase 72 U/L (46-116); Anion Gap 8 (7-16); Aspartate Amino Transferase 18 U/L (0-34); BUN/Creatinine Ratio 35 Ratio (12-20); Bilirubin,Total 0.4 mg/dL (0.3-1.2); Blood Urea Nitrogen 7 mg/dL (9-23); Calcium 9.5 mg/dL (8.3-10.6); Calcium (Corrected) 9.7 mg/dL (8.5-10.1); Carbon Dioxide 29.5 mMol/L (20.0-31.0); Chloride 101 mMol/L (98-107); Creatinine (Component) 0.2 mg/dL (0.6-1.3); Estimated Creatinine Clearance 297.7 mL/min (>60); Globulin 2.9 gm/dL (2.3-3.5); Glucose 89 mg/dL (74-106); Magnesium 1.9 mg/dL (1.6-2.6); Osmolality,Calculated 272 (275-295); Phosphorous 3.2 mg/dL (2.4-5.1); Potassium 3.6 mMol/L (3.4-5.1); Sodium 138 mMol/L (136-145); Total Protein 6.7 gm/dL (5.7-8.2); eGFR > 60 See Note
[2024-07-07] MEDS: Magnesium Sulfate 2 GM Ivpb 2 GM/50 ML BAG IV (09:19)
[2024-07-07] MEDS: POTASSIUM CHLORIDE 20 mEq TABCR 40 MEQ PO (09:19)
[2024-07-07] MEDS: PANTOPRAZOLE INJ 40 MG VIAL IVP (09:20)
--- NOTE | 2024-07-07 11:45 | PC.SS ---
SS follow up note; Patient white counts are elevated, possible discharge tomorrow.
--- NOTE | 2024-07-07 14:41 | PD.RESPRO ---
Documentation for date of: 07/07/24 Subjective Subjective Interval history: No acute overnight events reported. Patient is seen and examined at bedside this morning. Patient denies any chest pain and endorses to feeling significantly better, patient has remained afebrile overnight. Patient denies abdominal pain, had a regular bowel movement yesterday and is able to tolerate oral diet. Labs are significant for WBC slightly uptrending 14.1 and the remainder of labs are stable with exception of potassium 3.6 and 40 mEq is repleted. ET secretion cultures came back with Pseudomonas and urine cultures are still pending. Patient is currently on cefepime and will need PICC line upon discharge to continue cefepime for total of 2 weeks. Exam Vital Signs Temp Pulse Resp BP Pulse Ox O2 Del Method FiO2 96.9 F 98 27 H 97/67 100 Mechanical Ventilation 40 07/07/24 12:00 07/07/24 12:00 07/07/24 12:00 07/07/24 12:00 07/07/24 12:00 07/07/24 12:00 07/07/24 12:00 Narrative Exam GENERAL: A&Ox3 . Awake frail young man, obvious signs of muscle wasting and muscular dystrophy NEURO: no focal neurological deficits HEENT: Atraumatic, Normocephalic. mucous membranes moist. Eyes open, symmetrical, & clear, tracheostomy tube present HEART: Normal Heart Sounds LUNGS:clear breath sounds heard bilaterally ABDOMEN: soft, non-distended, non-tender, bowel sounds heard, no guarding or rebound tenderness SKIN: No Rash or ecchymoses EXTREMITIES: No edema, tenderness, contracted bilateral LE Objective Labs 07/08/24 05:29 07/08/24 05:29 Labs: Laboratory Results - last 24 hr 07/07/24 05:33 WBC 14.1 H RBC 3.16 L Hgb 9.5 L Hct 28.8 L MCV 91 MCH 30.1 MCHC 33.0 RDW Std Deviation 46.6 H Plt Count 508 H D Neut % (Auto) 72 Lymph % (Auto) 15 [place] % (Auto) 8 Eos % (Auto) 4 Baso % (Auto) 1 Neut # (Auto) 10.1 H Lymph # (Auto) 2.1 [place] # (Auto) 1.1 H Eos # (Auto) 0.6 H Baso # (Auto) 0.1 Immature Gran # (Auto) 0.16 H Absolute Nucleated RBC 0.00 Immature Gran % 1 H Nucleated RBC % 0 Sodium 138 Potassium 3.6 D Chloride 101 Carbon Dioxide 29.5 Anion Gap 8 BUN 7 L Creatinine 0.2 L Estim Creat Clear Calc 297.7 eGFR > 60 BUN/Creatinine Ratio 35 H Glucose 89 Calculated Osmolality 272 L Calcium 9.5 Corrected Calcium 9.7 Phosphorus 3.2 Magnesium 1.9 Total Bilirubin 0.4 AST 18 ALT 25 Alkaline Phosphatase 72 Total Protein 6.7 Albumin 3.8 Globulin 2.9 Albumin/Globulin Ratio 1.3 ABG Interpretation ABG results: 07/01/24 20:07 VBG pH 7.45 VBG pCO2 39 VBG pO2 121 H VBG Base Excess 2 Quality Measures Quality Measures VTE prophylaxis (Lovenox) Assessment & Plan Assessment Current Active Medications: Generic Name Dose Route Start Last Admin Trade Name Freq PRN Reason Stop Dose Admin Acetaminophen 650 mg 07/02/24 13:24 07/05/24 18:15 Acetaminophen 325 Mg Tablet PO 08/01/24 13:23 650 mg Q6HR PRN Administration Fever >100.4 or pain Albuterol/Ipratropium 3 ml 07/02/24 01:37 07/04/24 06:31 Albuterol/Ipratropium (Duoneb) Rt Amy 3 Ml Nebu INH 08/01/24 01:36 3 ml Q8H PRN Administration SHORTNESS OF BREATH OR WHEEZE Enoxaparin Sodium 40 mg 07/02/24 09:00 07/02/24 09:07 Enoxaparin Sod Inj 40 Mg/0.4 Ml Syringe SC 07/16/24 08:59 40 mg QDAY OLMAN Administration Cefepime HCl 2 gm/ Sodium 50 mls @ 100 mls/hr 07/02/24 06:15 07/07/24 14:32 Chloride IV 07/09/24 06:14 100 mls/hr Q8HR OLMAN Administration Lactulose 10 gm 07/04/24 10:15 07/04/24 12:16 Lactulose Syrup 20 Gm/30 Ml Udc PO 08/03/24 13:59 10 gm TID PRN Administration constipation Protocol Melatonin 3 mg 07/02/24 21:00 07/06/24 21:30 Melatonin 3 Mg Tablet PO 08/01/24 20:59 3 mg HS OLMAN Administration Pantoprazole Sodium 40 mg 07/03/24 15:45 07/07/24 09:20 Pantoprazole Inj 40 Mg Vial IVP 08/02/24 15:44 40 mg QDAY OLMAN Administration Plan Scot is a 33 y/o male with PMHx of limb-girdle muscular dystrophy type IIb, chronic trach, history of ESBL UTI and recurrent pneumonia who is admitted for IV antibiotics for pneumonia and management of pleural effusions #Sepsis secondary to - ruled out #Hospital-acquired pneumonia versus ventilator associated pneumonia #Acute on chronic hypoxic respiratory failure #Pleural effusion, right side -Although pt meets SIRS 3/4: leukocytosis , tachycardia and fever, SOFA score is 1 and there is no signs of end organ damage therefore sepsis is ruled out -Lactate 2.2 -> 0.8 , Pro-George 0.17 -In the ED pt is given NS 1.25L Bolus -Urine culture on 06/28 - positive GNR -Pt has tracheostomy tube placed in 2023 -Chest CT shows prominent pneumonia in right lung along with atelectasis and right-sided moderate pleural effusion -Cocci IgM negative Plan: ? Cefepime 2g Q8H IV 07/02- ? Vancomycin IV pharmacy to dose 07/02-07/04 ? Azithromycin 06/26- 07/02 (Pt was started on azithromycin at the subacute) ? MRSA negative, discontinued vancomycin ? Blood cultures no growth at 48 hrs ? ET Sputum cultures grew pseudomonas - Urine cultures - GNR pending speciation of the bacteria ? U/S guided Thoracentesis unsuccessful on 07/03 due to insufficient fluid observed via ultrasound ? Continue with current ventilator settings ? DuoNebs every 8 hours as needed -PICC line ordered for IV antibiotics at the subacute #Chest pain, right sided- resolved -Does not change with movement or stressful situations, was not given any nitro for this -Chronically musculoskeletal or could be related to GERD or/and pleural effusions -EKG shows normal sinus rhythm, rate of 98 -Chest pain is resolved, unlikely ischemic, troponin negative -Chest pain is at the site of pleural effusions, pain is likely related to that #Hypercalcemia- resolved Chronic, likely related to hypercalcemia of immobilization on admission Ca 10.7 Plan: ? Trend with CMP #History of limb-girdle muscular dystrophy type IIb #History of chronic trach #Failure to thrive On ventilator VBG pH 7.45, pCO2 39 -Pt's BMI is 18.2 -Confirmed withsubacute, Pt is on oral feeds with regular diet Plan: ? resumed regular diet ? Registered dietitian referral #Severe Protein Malnutrition BMI 17.7 and age 33 and Pt has chronic condition of muscular dystrophy with obvious signs of muscle wasting and chronically bedbound plan: -consult to dietitian is place -Pt is able to tolerate oral feeds- ensure plus high protein shakes and snack between meals and regular diet as per dietitian recommendation #Health Maintenance Disposition: Telemetry DVT prophylaxis: Lovenox SC Qday GI prophylaxis: Protonix 40mg IVP Qday Diet: regular diet CODE STATUS: Full Assessment and plan discussed with my attending physician Dr. Connor Sebastian (PGY-1)- Internal medicine resident Attending Provider Attestation/Addendum I reviewed labs, imaging, EKG, home medications and prior available records. Face to face evaluation was performed by me. I have personally examined the patient and discussed assessment and plan with the IM team. I reviewed the resident note and agree with the plan with exceptions as below. Acute hypoxic respiratory failure Muscular dystrophy Sinus tachycardia Right lower lobe pneumonia, community-acquired pneumonia versus aspiration pneumonia Right pleural effusion Cocci IgM is negative Insufficient pleural fluid for drain Continue frequent suctioning Continue antibiotics: Cefepime Follow-up sputum culture: Showing gram-negative rods. Discussed with lab: Identified as multiresistant Pseudomonas but sensitive to cefepime. Consulted IR for PICC line placement Trend WBC: Downtrending Wean off oxygen as tolerated
[2024-07-07] MEDS: ACETAMINOPHEN 325 MG TABLET 650 MG PO (19:43)
[2024-07-07] MEDS: MELATONIN 3 MG TABLET PO (21:00)
[2024-07-08] VITALS (11 sets, daily range): BP systolic 91–111; BP diastolic 56–73; PULSE 73–109; RESP 15–39; TEMP 36.1–36.6; O2SAT 95–100
[2024-07-08] MEDS: CEFEPIME INJ 2 GM in SODIUM CHLORIDE 0.9% (Popper) 50 ML IV ×3 (05:02→21:42)
[2024-07-08 06:07] LABS: Basophils # (Auto) 0.1 Thou/mm3 (0.0-0.2); Basophils % (Auto) 0 % (0-2.5); Eosinophils # (Auto) 0.4 Thou/mm3 (0.0-0.5); Eosinophils % (Auto) 4 % (0-10); Hematocrit 28.4 % (41.0-53.0); Hemoglobin 9.2 g/dL (13.5-16.0); Immature Granulocytes % (Auto) 1 % (0-0); Immature Granulocytes Auto 0.16 Thou/mm3 (0.00-0.00); Lymphocytes # (Auto) 2.1 Thou/mm3 (1.0-4.8); Lymphocytes % (Auto) 18 % (10-50); Mean Corpuscular HGB Conc 32.4 g/dl (31.0-37.0); Mean Corpuscular Hemoglobin 30.5 pg (25.0-35.0); Mean Corpuscular Volume 94 fL (80-100); Monocytes # (Auto) 0.8 Thou/mm3 (0.0-0.8); Monocytes % (Auto) 7 % (0-12); Neutrophils # (Auto) 8.3 Thou/mm3 (1.8-7.7); Neutrophils % (Auto) 70 % (37-80); Nucleated Red Blood Cell % 0 /100 WBC (0); Platelet Count 457 Thou/mm3 (140-440); RDW Standard Deviation 47.8 fL (35.1-43.9); Red Blood Count 3.02 Miln/mm3 (4.50-5.90); White Blood Count 11.8 Thou/mm3 (3.8-10.6)
[2024-07-08 06:13] LABS: Alanine Aminotransferase 23 U/L (10-49); Albumin, Serum 3.7 gm/dL (3.5-5.0); Albumin/Globulin Ratio 1.3 (1.2-2.2); Alkaline Phosphatase 65 U/L (46-116); Anion Gap 5 (7-16); Aspartate Amino Transferase 19 U/L (0-34); BUN/Creatinine Ratio 40 Ratio (12-20); Bilirubin,Total 0.3 mg/dL (0.3-1.2); Blood Urea Nitrogen 8 mg/dL (9-23); Calcium 9.3 mg/dL (8.3-10.6); Calcium (Corrected) 9.5 mg/dL (8.5-10.1); Carbon Dioxide 28.1 mMol/L (20.0-31.0); Chloride 106 mMol/L (98-107); Creatinine (Component) 0.2 mg/dL (0.6-1.3); Estimated Creatinine Clearance 297.7 mL/min (>60); Globulin 2.8 gm/dL (2.3-3.5); Glucose 86 mg/dL (74-106); Magnesium 2.1 mg/dL (1.6-2.6); Osmolality,Calculated 274 (275-295); Phosphorous 3.1 mg/dL (2.4-5.1); Potassium 4.2 mMol/L (3.4-5.1); Sodium 139 mMol/L (136-145); Total Protein 6.5 gm/dL (5.7-8.2); eGFR > 60 See Note
[2024-07-08] MEDS: PANTOPRAZOLE INJ 40 MG VIAL IVP (08:31)
--- NOTE | 2024-07-08 11:57 | PD.RESPRO ---
Documentation for date of: 07/08/24 Subjective Subjective Interval history: No acute overnight events reported patient seen and examined at bedside this morning. Patient's vitals are stable blood pressure is 111/73 currently on same vent settings. Patient appears to be a little uncomfortable states that during his readjustment and position changing the trachtube was moving therefore now he is in pain due to trach tube handling. But other than that patient does not have any complaints was able to sleep okay had a bowel movement and tolerating oral diet. Labs are stable WBC count is down trended to 11.8 urine cultures came back as contamination patient will continue cefepime for total of 2-week course. Exam Vital Signs Temp Pulse Resp BP Pulse Ox O2 Del Method FiO2 97.4 F 86 24 H 100/69 97 Mechanical Ventilation 40 07/08/24 08:00 07/08/24 08:00 07/08/24 08:00 07/08/24 08:00 07/08/24 08:00 07/08/24 08:00 07/08/24 08:00 Narrative Exam GENERAL: A&Ox3 . Awake frail young man, obvious signs of muscle wasting and muscular dystrophy NEURO: no focal neurological deficits HEENT: Atraumatic, Normocephalic. mucous membranes moist. Eyes open, symmetrical, & clear, tracheostomy tube present HEART: Normal Heart Sounds LUNGS:clear breath sounds heard bilaterally ABDOMEN: soft, non-distended, non-tender, bowel sounds heard, no guarding or rebound tenderness SKIN: No Rash or ecchymoses EXTREMITIES: No edema, tenderness, contracted bilateral LE Objective Labs 07/09/24 05:23 07/09/24 05:23 Labs: Laboratory Results - last 24 hr 07/08/24 05:29 WBC 11.8 H RBC 3.02 L Hgb 9.2 L Hct 28.4 L MCV 94 MCH 30.5 MCHC 32.4 RDW Std Deviation 47.8 H Plt Count 457 H D Neut % (Auto) 70 Lymph % (Auto) 18 [place] % (Auto) 7 Eos % (Auto) 4 Baso % (Auto) 0 Neut # (Auto) 8.3 H Lymph # (Auto) 2.1 [place] # (Auto) 0.8 Eos # (Auto) 0.4 Baso # (Auto) 0.1 Immature Gran # (Auto) 0.16 H Absolute Nucleated RBC 0.00 Immature Gran % 1 H Nucleated RBC % 0 Sodium 139 Potassium 4.2 D Chloride 106 Carbon Dioxide 28.1 Anion Gap 5 L BUN 8 L Creatinine 0.2 L Estim Creat Clear Calc 297.7 eGFR > 60 BUN/Creatinine Ratio 40 H Glucose 86 Calculated Osmolality 274 L Calcium 9.3 Corrected Calcium 9.5 Phosphorus 3.1 Magnesium 2.1 Total Bilirubin 0.3 AST 19 ALT 23 Alkaline Phosphatase 65 Total Protein 6.5 Albumin 3.7 Globulin 2.8 Albumin/Globulin Ratio 1.3 ABG Interpretation ABG results: 07/01/24 20:07 VBG pH 7.45 VBG pCO2 39 VBG pO2 121 H VBG Base Excess 2 Quality Measures Quality Measures VTE prophylaxis (Lovenox) Assessment & Plan Assessment Current Active Medications: Generic Name Dose Route Start Last Admin Trade Name Freq PRN Reason Stop Dose Admin Acetaminophen 650 mg 07/02/24 13:24 07/07/24 19:43 Acetaminophen 325 Mg Tablet PO 08/01/24 13:23 650 mg Q6HR PRN Administration Fever >100.4 or pain Albuterol/Ipratropium 3 ml 07/02/24 01:37 07/04/24 06:31 Albuterol/Ipratropium (Duoneb) Rt Amy 3 Ml Nebu INH 08/01/24 01:36 3 ml Q8H PRN Administration SHORTNESS OF BREATH OR WHEEZE Enoxaparin Sodium 40 mg 07/02/24 09:00 07/02/24 09:07 Enoxaparin Sod Inj 40 Mg/0.4 Ml Syringe SC 07/16/24 08:59 40 mg QDAY OLMAN Administration Cefepime HCl 2 gm/ Sodium 50 mls @ 100 mls/hr 07/02/24 06:15 07/08/24 07:06 Chloride IV 07/09/24 06:14 Infused Q8HR OLMAN Infusion Lactulose 10 gm 07/04/24 10:15 07/04/24 12:16 Lactulose Syrup 20 Gm/30 Ml Udc PO 08/03/24 13:59 10 gm TID PRN Administration constipation Protocol Melatonin 3 mg 07/02/24 21:00 07/07/24 21:00 Melatonin 3 Mg Tablet PO 08/01/24 20:59 3 mg HS OLMAN Administration Pantoprazole Sodium 40 mg 07/03/24 15:45 07/08/24 08:31 Pantoprazole Inj 40 Mg Vial IVP 08/02/24 15:44 40 mg QDAY OLMAN Administration Plan Scot is a 33 y/o male with PMHx of limb-girdle muscular dystrophy type IIb, chronic trach, history of ESBL UTI and recurrent pneumonia who is admitted for IV antibiotics for pneumonia and management of pleural effusions #Sepsis secondary to - ruled out #Hospital-acquired pneumonia versus ventilator associated pneumonia #Acute on chronic hypoxic respiratory failure #Pleural effusion, right side -Although pt meets SIRS 3/4: leukocytosis , tachycardia and fever, SOFA score is 1 and there is no signs of end organ damage therefore sepsis is ruled out -Lactate 2.2 -> 0.8 , Pro-George 0.17 -In the ED pt is given NS 1.25L Bolus -Urine culture on 06/28 - positive GNR -Pt has tracheostomy tube placed in 2023 -Chest CT shows prominent pneumonia in right lung along with atelectasis and right-sided moderate pleural effusion -Cocci IgM negative Plan: ? Cefepime 2g Q8H IV 07/02- ? Vancomycin IV pharmacy to dose 07/02-07/04 ? Azithromycin 06/26- 07/02 (Pt was started on azithromycin at the subacute) ? MRSA negative, discontinued vancomycin ? Blood cultures no growth at 48 hrs ? ET Sputum cultures grew pseudomonas - Urine cultures - resulted to be contamination ? U/S guided Thoracentesis unsuccessful on 07/03 due to insufficient fluid observed via ultrasound ? Continue with current ventilator settings ? DuoNebs every 8 hours as needed -PICC line ordered for IV antibiotics at the subacute #Chest pain, right sided- resolved -Does not change with movement or stressful situations, was not given any nitro for this -Chronically musculoskeletal or could be related to GERD or/and pleural effusions -EKG shows normal sinus rhythm, rate of 98 -Chest pain is resolved, unlikely ischemic, troponin negative -Chest pain is at the site of pleural effusions, pain is likely related to that #Hypercalcemia- resolved Chronic, likely related to hypercalcemia of immobilization on admission Ca 10.7 Plan: ? Trend with CMP #History of limb-girdle muscular dystrophy type IIb #History of chronic trach #Failure to thrive On ventilator VBG pH 7.45, pCO2 39 -Pt's BMI is 18.2 -Confirmed with subacute, Pt is on oral feeds with regular diet Plan: ? resumed regular diet ? Registered dietitian referral #Severe Protein Malnutrition BMI 17.7 and age 33 and Pt has chronic condition of muscular dystrophy with obvious signs of muscle wasting and chronically bedbound plan: -consult to dietitian is place -Pt is able to tolerate oral feeds- ensure plus high protein shakes and snack between meals and regular diet as per dietitian recommendation #Health Maintenance Disposition: Telemetry DVT prophylaxis: Lovenox SC Qday GI prophylaxis: Protonix 40mg IVP Qday Diet: regular diet CODE STATUS: Full Assessment and plan discussed with my attending physician Dr. Connor Sebastian (PGY-1)- Internal medicine resident Attending Provider Attestation/Addendum I reviewed labs, imaging, EKG, home medications and prior available records. Face to face evaluation was performed by me. I have personally examined the patient and discussed assessment and plan with the IM team. I reviewed the resident note and agree with the plan with exceptions as below. Acute hypoxic respiratory failure Muscular dystrophy Sinus tachycardia Right lower lobe pneumonia, community-acquired pneumonia versus aspiration pneumonia Right pleural effusion Cocci IgM is negative Insufficient pleural fluid for drain Continue frequent suctioning Continue antibiotics: Cefepime Follow-up sputum culture: Showing gram-negative rods. Discussed with lab: Identified as multiresistant Pseudomonas but sensitive to cefepime. Consulted IR for PICC line placement Trend WBC: Downtrending Wean off oxygen as tolerated
[2024-07-08] MEDS: ALBUTEROL/IPRATROPIUM (Duoneb) RT SOL 3 ML NEBU INH (16:54)
[2024-07-08] MEDS: MELATONIN 3 MG TABLET PO (21:42)
[2024-07-09] VITALS (11 sets, daily range): BP systolic 84–107; BP diastolic 58–75; PULSE 69–90; RESP 16–43; TEMP 36.1–37; O2SAT 96–100
[2024-07-09] MEDS: CEFEPIME INJ 2 GM in SODIUM CHLORIDE 0.9% (Popper) 50 ML IV ×3 (05:25→21:00)
[2024-07-09 06:07] LABS: Basophils # (Auto) 0.1 Thou/mm3 (0.0-0.2); Basophils % (Auto) 1 % (0-2.5); Eosinophils # (Auto) 0.3 Thou/mm3 (0.0-0.5); Eosinophils % (Auto) 3 % (0-10); Hematocrit 26.5 % (41.0-53.0); Hemoglobin 8.9 g/dL (13.5-16.0); Immature Granulocytes % (Auto) 2 % (0-0); Immature Granulocytes Auto 0.17 Thou/mm3 (0.00-0.00); Lymphocytes # (Auto) 2.2 Thou/mm3 (1.0-4.8); Lymphocytes % (Auto) 22 % (10-50); Mean Corpuscular HGB Conc 33.6 g/dl (31.0-37.0); Mean Corpuscular Hemoglobin 30.5 pg (25.0-35.0); Mean Corpuscular Volume 91 fL (80-100); Monocytes # (Auto) 0.7 Thou/mm3 (0.0-0.8); Monocytes % (Auto) 7 % (0-12); Neutrophils # (Auto) 6.8 Thou/mm3 (1.8-7.7); Neutrophils % (Auto) 67 % (37-80); Nucleated Red Blood Cell % 0 /100 WBC (0); Platelet Count 466 Thou/mm3 (140-440); RDW Standard Deviation 45.9 fL (35.1-43.9); Red Blood Count 2.92 Miln/mm3 (4.50-5.90); White Blood Count 10.2 Thou/mm3 (3.8-10.6)
[2024-07-09 06:27] LABS: Alanine Aminotransferase 18 U/L (10-49); Albumin, Serum 3.6 gm/dL (3.5-5.0); Albumin/Globulin Ratio 1.3 (1.2-2.2); Alkaline Phosphatase 68 U/L (46-116); Anion Gap 6 (7-16); Aspartate Amino Transferase 15 U/L (0-34); BUN/Creatinine Ratio 55 Ratio (12-20); Bilirubin,Total 0.2 mg/dL (0.3-1.2); Blood Urea Nitrogen 11 mg/dL (9-23); Calcium 9.4 mg/dL (8.3-10.6); Calcium (Corrected) 9.7 mg/dL (8.5-10.1); Carbon Dioxide 25.7 mMol/L (20.0-31.0); Chloride 109 mMol/L (98-107); Creatinine (Component) 0.2 mg/dL (0.6-1.3); Estimated Creatinine Clearance 297.7 mL/min (>60); Globulin 2.7 gm/dL (2.3-3.5); Glucose 91 mg/dL (74-106); Magnesium 1.9 mg/dL (1.6-2.6); Osmolality,Calculated 280 (275-295); Phosphorous 2.6 mg/dL (2.4-5.1); Potassium 3.8 mMol/L (3.4-5.1); Sodium 141 mMol/L (136-145); Total Protein 6.3 gm/dL (5.7-8.2); eGFR > 60 See Note
[2024-07-09] MEDS: ENOXAPARIN SOD INJ 40 MG/0.4 ML SYRINGE SC (08:52)
[2024-07-09] MEDS: PANTOPRAZOLE INJ 40 MG VIAL IVP (08:52)
--- NOTE | 2024-07-09 10:18 | ESPR_ITS ---
Documentation for date of: 07/09/24 Subjective Subjective Interval history: Patient seen and examined at bedside this morning. No acute overnight events. Vitals, labs reviewed. SBP <90 while patient was sleeping however did improve once awake, and MAP was >65. WBC normalized. Pending PICC line placement on Monday 07/10. Today is day 8 of cefepime, and patient will need to complete 14- day total course. At bedside, patient has no acute complaints. ROS negative. Exam Vital Signs Temp Pulse Resp BP Pulse Ox O2 Del Method FiO2 97.3 F 79 26 H 98/69 100 Mechanical Ventilation 40 07/09/24 08:00 07/09/24 08:00 07/09/24 08:00 07/09/24 08:00 07/09/24 08:00 07/09/24 08:00 07/09/24 08:00 Narrative Exam GENERAL: A&Ox3 . Awake frail young man, obvious signs of muscle wasting and muscular dystrophy NEURO: no focal neurological deficits HEENT: Atraumatic, Normocephalic. mucous membranes moist. Eyes open, symmetrical, & clear, tracheostomy tube present HEART: Normal Heart Sounds LUNGS:clear breath sounds heard bilaterally ABDOMEN: soft, non-distended, non-tender, bowel sounds heard, no guarding or rebound tenderness SKIN: No Rash or ecchymoses EXTREMITIES: No edema, tenderness, contracted bilateral LE Objective Labs 07/09/24 05:23 07/09/24 05:23 Labs: Laboratory Results - last 24 hr 07/09/24 05:23 WBC 10.2 RBC 2.92 L Hgb 8.9 L Hct 26.5 L MCV 91 MCH 30.5 MCHC 33.6 RDW Std Deviation 45.9 H Plt Count 466 H Neut % (Auto) 67 Lymph % (Auto) 22 [facility] % (Auto) 7 Eos % (Auto) 3 Baso % (Auto) 1 Neut # (Auto) 6.8 Lymph # (Auto) 2.2 [facility] # (Auto) 0.7 Eos # (Auto) 0.3 Baso # (Auto) 0.1 Immature Gran # (Auto) 0.17 H Absolute Nucleated RBC 0.00 Immature Gran % 2 H Nucleated RBC % 0 Sodium 141 Potassium 3.8 Chloride 109 H Carbon Dioxide 25.7 Anion Gap 6 L BUN 11 Creatinine 0.2 L Estim Creat Clear Calc 297.7 eGFR > 60 BUN/Creatinine Ratio 55 H Glucose 91 Calculated Osmolality 280 Calcium 9.4 Corrected Calcium 9.7 Phosphorus 2.6 Magnesium 1.9 Total Bilirubin 0.2 L AST 15 ALT 18 Alkaline Phosphatase 68 Total Protein 6.3 Albumin 3.6 Globulin 2.7 Albumin/Globulin Ratio 1.3 ABG Interpretation ABG results: 07/01/24 20:07 VBG pH 7.45 VBG pCO2 39 VBG pO2 121 H VBG Base Excess 2 Quality Measures Quality Measures VTE prophylaxis (Lovenox) Assessment & Plan Assessment Current Active Medications: Generic Name Dose Route Start Last Admin Trade Name Freq PRN Reason Stop Dose Admin Acetaminophen 650 mg 07/02/24 13:24 07/07/24 19:43 Acetaminophen 325 Mg Tablet PO 08/01/24 13:23 650 mg Q6HR PRN Administration Fever >100.4 or pain Albuterol/Ipratropium 3 ml 07/02/24 01:37 07/08/24 16:54 Albuterol/Ipratropium (Duoneb) Rt Amy 3 Ml Nebu INH 08/01/24 01:36 3 ml Q8H PRN Administration SHORTNESS OF BREATH OR WHEEZE Enoxaparin Sodium 40 mg 07/02/24 09:00 07/09/24 08:52 Enoxaparin Sod Inj 40 Mg/0.4 Ml Syringe SC 07/16/24 08:59 40 mg QDAY OLMAN Administration Cefepime HCl 2 gm/ Sodium 50 mls @ 100 mls/hr 07/09/24 14:00 Chloride IV 07/16/24 13:59 Q8HR OLMAN Lactulose 10 gm 07/04/24 10:15 07/04/24 12:16 Lactulose Syrup 20 Gm/30 Ml Udc PO 08/03/24 13:59 10 gm TID PRN Administration constipation Protocol Melatonin 3 mg 07/02/24 21:00 07/08/24 21:42 Melatonin 3 Mg Tablet PO 08/01/24 20:59 3 mg HS OLMAN Administration Pantoprazole Sodium 40 mg 07/03/24 15:45 07/09/24 08:52 Pantoprazole Inj 40 Mg Vial IVP 08/02/24 15:44 40 mg QDAY OLMAN Administration Plan Scot is a 33 y/o male with PMHx of limb-girdle muscular dystrophy type IIb, chronic trach, history of ESBL UTI and recurrent pneumonia who is admitted for IV antibiotics for pneumonia and management of pleural effusions #Sepsis secondary to - ruled out #Hospital-acquired pneumonia versus ventilator associated pneumonia; MDR Pseudomonas #Acute on chronic hypoxic respiratory failure #Pleural effusion, right side; improving; insufficient for drainage -Although pt meets SIRS 3/4: leukocytosis , tachycardia and fever, SOFA score is 1 and there is no signs of end organ damage therefore sepsis is ruled out -Lactate 2.2 -> 0.8 , Pro-George 0.17 -In the ED pt is given NS 1.25L Bolus -Urine culture on 06/28 - positive GNR -Pt has tracheostomy tube placed in 2023 -Chest CT shows prominent pneumonia in right lung along with atelectasis and right-sided moderate pleural effusion -Cocci IgM negative Plan: ? Cefepime 2g Q8H IV (07/02- with end date 07/15/2024) ? Vancomycin IV pharmacy to dose 07/02-07/04 (NH'ed due to neg MRSA and culture speciation) ? Azithromycin 06/26- 07/02 (Pt was started on azithromycin at the [facility]) ? Blood cultures no growth at 48 hrs ? ET Sputum cultures grew pseudomonas - Urine cultures - resulted to be contamination ? Continue with current ventilator settings ? DuoNebs every 8 hours as needed - PICC line ordered for IV antibiotics at the [facility]: 07/10; NPO at DC, coags ordered #Chest pain, right sided- resolved -Does not change with movement or stressful situations, was not given any nitro for this -Chronically musculoskeletal or could be related to GERD or/and pleural effusions -EKG shows normal sinus rhythm, rate of 98 -Chest pain is resolved, unlikely ischemic, troponin negative -Chest pain is at the site of pleural effusions, pain is likely related to that #Hypercalcemia- resolved Chronic, likely related to hypercalcemia of immobilization on admission Ca 10.7 Plan: ? Trend with CMP #History of limb-girdle muscular dystrophy type IIb #History of chronic trach #Failure to thrive On ventilator VBG pH 7.45, pCO2 39 -Pt's BMI is 18.2 -Confirmed with subacute, Pt is on oral feeds with regular diet Plan: ? resumed regular diet ? Registered dietitian referral #Severe Protein Malnutrition BMI 17.7 and age 33 and Pt has chronic condition of muscular dystrophy with obvious signs of muscle wasting and chronically bedbound plan: -consult to dietitian is place -Pt is able to tolerate oral feeds- ensure plus high protein shakes and snack between meals and regular diet as per dietitian recommendation #Health Maintenance Disposition: Telemetry; pending PICC line to complete a 14-day course of antibiotics DVT prophylaxis: Lovenox SC Qday GI prophylaxis: Protonix 40mg IVP Qday Diet: regular diet CODE STATUS: Full Patient seen and care discussed with my attending Dr. Ryan. Anyi Shrestha MD PGY-3 Attending Provider Attestation/Addendum I reviewed labs, imaging, EKG, home medications and prior available records. Face to face evaluation was performed by me. I have personally examined the patient and discussed assessment and plan with the IM team. I reviewed the resident note and agree with the plan with exceptions as below. Acute hypoxic respiratory failure Muscular dystrophy Sinus tachycardia Right lower lobe pneumonia, community-acquired pneumonia versus aspiration pneumonia Right pleural effusion Cocci IgM is negative Insufficient pleural fluid for drain Continue frequent suctioning Continue antibiotics: Cefepime Follow-up sputum culture: Showing gram-negative rods. Discussed with lab: Identified as multiresistant Pseudomonas but sensitive to cefepime. Consulted IR for PICC line placement Trend WBC: Downtrending Wean off oxygen as tolerated
[2024-07-09] MEDS: MELATONIN 3 MG TABLET PO (21:00)
[2024-07-10] VITALS (14 sets, daily range): BP systolic 90–134; BP diastolic 63–94; PULSE 65–102; RESP 16–37; TEMP 36.2–37; O2SAT 96–100; BMI 18.1
[2024-07-10] MEDS: CEFEPIME INJ 2 GM in SODIUM CHLORIDE 0.9% (Popper) 50 ML IV ×3 (05:10→20:59)
[2024-07-10 06:47] LABS: INR 1.1 (0.9-1.3); Prothrombin Time 12.4 Seconds (9.0-12.2)
[2024-07-10 06:56] LABS: Magnesium 1.9 mg/dL (1.6-2.6)
--- NOTE | 2024-07-10 07:00 | XR_ITS ---
Examination: Ultrasound-guided needle placement right basilic vein. Dual-lumen central line placement (PICC line). Fluoroscopy AP chest, portable, single view Exam date and time:July 10, 2024 at 1035 hours INDICATIONS: Need for long-term intravenous antibiotic therapy A timeout was completed verifying correct patient, procedure, site, positioning Informed consent provided Technique: The patient's site was prepped and draped in sterile fashion. Maximum Sterile Barrier Technique used including cap, mask, sterile gown, sterile gloves, and sterile full body drape. If ultrasound technique used: sterile gel and sterile probe covers. Hand Hygiene performed using proper scrub, soap and water, or alcohol-based hand rub. Ultrasound utilized to confirm patency of right basilic vein Utilizing ultrasonographic guidance successful 21-gauge needle puncture into the right basilic vein Ultrasound images recorded and stored. 5 cc 1% lidocaine administered for local anesthetic. Successful micropuncture with a 21-gauge needle is performed. 0.18 wire guide is then introduced into the SVC under fluoroscopic guidance. Dual-lumen catheter dilator is then introduced, followed by the catheter in the SVC and proper position under fluoroscopic guidance. Successful aspiration of blood and flushing with heparinized saline is then performed in the 2 venous limbs. The catheter sutured in place. Findings: Under fluoroscopy, the tip of the catheter is in good position in the vena cava. Portable chest x-ray, post line placement is ordered. Estimated blood loss 3 cc The patient tolerated the procedure well and was in stable and satisfactory condition at completion of the procedure Impression: Successful ultrasound-guided needle placement right basilic vein Successful placement of dual lumen central line, percutaneous Fluoroscopy 6 seconds. AP chest completion procedure demonstrates satisfactory position central line. May use central line.
[2024-07-10] MEDS: Magnesium Sulfate 2 GM Ivpb 2 GM/50 ML BAG IV (09:22)
[2024-07-10] MEDS: PANTOPRAZOLE INJ 40 MG VIAL IVP (09:22)
--- NOTE | 2024-07-10 10:39 | PD.RESPRO ---
Documentation for date of: 07/10/24 Subjective Subjective Interval history: Patient was seen and examined at the bedside. No acute overnight events were reported. Patient reported that he is a little bit anxious on getting a PICC line and was given Ativan before insertion of the PICC line for continuation of cefepime for 6 more days to complete course of antibiotics. Vitals were stable. Patient is currently stable on ventilator. Labs will be drawn for tomorrow. Anticipating discharge back to subacute tomorrow once PICC line is inserted today. All labs and orders were reviewed. Exam Vital Signs Temp Pulse Resp BP Pulse Ox O2 Del Method FiO2 97.2 F 67 24 H 92/65 99 Mechanical Ventilation 40 07/10/24 08:00 07/10/24 08:00 07/10/24 08:00 07/10/24 08:00 07/10/24 08:00 07/10/24 08:00 07/10/24 08:00 Narrative Exam GENERAL: A&Ox3 . Awake frail young man, obvious signs of muscle wasting and muscular dystrophy NEURO: no focal neurological deficits HEENT: Atraumatic, Normocephalic. mucous membranes moist. Eyes open, symmetrical, & clear, tracheostomy tube present HEART: Normal Heart Sounds LUNGS:clear breath sounds heard bilaterally ABDOMEN: soft, non-distended, non-tender, bowel sounds heard, no guarding or rebound tenderness SKIN: No Rash or ecchymoses EXTREMITIES: No edema, tenderness, contracted bilateral LE Objective Labs 07/09/24 05:23 07/09/24 05:23 Labs: Laboratory Results - last 24 hr 07/10/24 05:56 PT 12.4 H INR 1.1 Magnesium 1.9 ABG Interpretation ABG results: 07/01/24 20:07 VBG pH 7.45 VBG pCO2 39 VBG pO2 121 H VBG Base Excess 2 Quality Measures Quality Measures VTE prophylaxis (Lovenox) Assessment & Plan Assessment Current Active Medications: Generic Name Dose Route Start Last Admin Trade Name Freq PRN Reason Stop Dose Admin Acetaminophen 650 mg 07/02/24 13:24 07/07/24 19:43 Acetaminophen 325 Mg Tablet PO 08/01/24 13:23 650 mg Q6HR PRN Administration Fever >100.4 or pain Albuterol/Ipratropium 3 ml 07/02/24 01:37 07/08/24 16:54 Albuterol/Ipratropium (Duoneb) Rt Amy 3 Ml Nebu INH 08/01/24 01:36 3 ml Q8H PRN Administration SHORTNESS OF BREATH OR WHEEZE Enoxaparin Sodium 40 mg 07/02/24 09:00 07/09/24 08:52 Enoxaparin Sod Inj 40 Mg/0.4 Ml Syringe SC 07/16/24 08:59 40 mg QDAY OLMAN Administration Cefepime HCl 2 gm/ Sodium 50 mls @ 100 mls/hr 07/09/24 14:00 07/10/24 05:10 Chloride IV 07/16/24 13:59 100 mls/hr Q8HR OLMAN Administration Lactulose 10 gm 07/04/24 10:15 07/04/24 12:16 Lactulose Syrup 20 Gm/30 Ml Udc PO 08/03/24 13:59 10 gm TID PRN Administration constipation Protocol Melatonin 3 mg 07/02/24 21:00 07/09/24 21:00 Melatonin 3 Mg Tablet PO 08/01/24 20:59 3 mg HS OLMAN Administration Pantoprazole Sodium 40 mg 07/03/24 15:45 07/10/24 09:22 Pantoprazole Inj 40 Mg Vial IVP 08/02/24 15:44 40 mg QDAY OLMAN Administration Plan Scot is a 33 y/o male with PMHx of limb-girdle muscular dystrophy type IIb, chronic trach, history of ESBL UTI and recurrent pneumonia who is admitted for IV antibiotics for pneumonia and management of pleural effusions #Sepsis secondary to - ruled out #Hospital-acquired pneumonia versus ventilator associated pneumonia; MDR Pseudomonas #Acute on chronic hypoxic respiratory failure #Pleural effusion, right side; improving; insufficient for drainage -Although pt meets SIRS 3/4: leukocytosis , tachycardia and fever, SOFA score is 1 and there is no signs of end organ damage therefore sepsis is ruled out -Lactate 2.2 -> 0.8 , Pro-George 0.17 -In the ED pt is given NS 1.25L Bolus -Urine culture on 06/28 - positive GNR -Pt has tracheostomy tube placed in 2023 -Chest CT shows prominent pneumonia in right lung along with atelectasis and right-sided moderate pleural effusion -Cocci IgM negative Plan: ? Cefepime 2g Q8H IV (07/02- with end date 07/15/2024) ? Vancomycin IV pharmacy to dose 07/02-07/04 (DC'ed due to neg MRSA and culture speciation) ? Azithromycin 06/26- 07/02 (Pt was started on azithromycin at the subacute) ? Blood cultures no growth at 48 hrs ? ET Sputum cultures grew pseudomonas - Urine cultures - resulted to be contamination ? Continue with current ventilator settings ? DuoNebs every 8 hours as needed - PICC line ordered for IV antibiotics today. Anticipate discharge tomorrow. #Chest pain, right sided- resolved -Does not change with movement or stressful situations, was not given any nitro for this -Chronically musculoskeletal or could be related to GERD or/and pleural effusions -EKG shows normal sinus rhythm, rate of 98 -Chest pain is resolved, unlikely ischemic, troponin negative -Chest pain is at the site of pleural effusions, pain is likely related to that #Hypercalcemia- resolved Chronic, likely related to hypercalcemia of immobilization on admission Ca 10.7 Plan: ? Trend with CMP #History of limb-girdle muscular dystrophy type IIb #History of chronic trach #Failure to thrive On ventilator VBG pH 7.45, pCO2 39 -Pt's BMI is 18.2 -Confirmed with subacute, Pt is on oral feeds with regular diet Plan: ? resumed regular diet ? Registered dietitian referral #Severe Protein Malnutrition BMI 17.7 and age 33 and Pt has chronic condition of muscular dystrophy with obvious signs of muscle wasting and chronically bedbound plan: -consult to dietitian is place -Pt is able to tolerate oral feeds- ensure plus high protein shakes and snack between meals and regular diet as per dietitian recommendation #Health Maintenance Disposition: Telemetry; pending PICC line to complete a 14-day course of antibiotics DVT prophylaxis: Lovenox SC Qday GI prophylaxis: Protonix 40mg IVP Qday Diet: regular diet CODE STATUS: Full Patient seen and care discussed with my attending Dr. Ryan. Dr. Nori MD, PGY 2 Attending Provider Attestation/Addendum I reviewed labs, imaging, EKG, home medications and prior available records. Face to face evaluation was performed by me. I have personally examined the patient and discussed assessment and plan with the IM team. I reviewed the resident note and agree with the plan with exceptions as below. Acute hypoxic respiratory failure Muscular dystrophy Sinus tachycardia Right lower lobe pneumonia, community-acquired pneumonia versus aspiration pneumonia Right pleural effusion Cocci IgM is negative Insufficient pleural fluid for drain Continue frequent suctioning Continue antibiotics: Cefepime Follow-up sputum culture: Showing gram-negative rods. Discussed with lab: Identified as multiresistant Pseudomonas but sensitive to cefepime. Consulted IR for PICC line placement Trend WBC: Downtrending Wean off oxygen as tolerated Discussed with Dr. Castanon who accepted the patient to come back to subacute rehab once PICC line is in and once a bed is available
--- NOTE | 2024-07-10 12:23 | PC.SS ---
SS follow up note; Pending Pic Line insertion, Sheeba from Subacute requesting for patient to discharge tomorrow morning.
[2024-07-10] MEDS: LORazepam 2 MG/ML VIAL 1 MG IVP (13:49)
[2024-07-10] MEDS: ENOXAPARIN SOD INJ 40 MG/0.4 ML SYRINGE SC (20:59)
[2024-07-10] MEDS: MELATONIN 3 MG TABLET PO (20:59)
[2024-07-11] VITALS (10 sets, daily range): BP systolic 84–120; BP diastolic 57–80; PULSE 66–86; RESP 14–29; TEMP 36.3–36.6; O2SAT 99–100; BMI 18.1
[2024-07-11] MEDS: CEFEPIME INJ 2 GM in SODIUM CHLORIDE 0.9% (Popper) 50 ML IV (05:35)
[2024-07-11 06:50] LABS: Magnesium 2.1 mg/dL (1.6-2.6); Phosphorous 3.5 mg/dL (2.4-5.1)
--- NOTE | 2024-07-11 07:53 | PC.NURSE ---
RN received a call from [facility] about discharge time for transfer back to subacute. awaiting order and confirmation for discharge today.
[2024-07-11] MEDS: PANTOPRAZOLE INJ 40 MG VIAL IVP (08:20)
[2024-07-11] MEDS: ENOXAPARIN SOD INJ 40 MG/0.4 ML SYRINGE SC (08:21)
[2024-07-11 08:39] LABS: Basophils # (Auto) 0.1 Thou/mm3 (0.0-0.2); Basophils % (Auto) 1 % (0-2.5); Eosinophils # (Auto) 0.3 Thou/mm3 (0.0-0.5); Eosinophils % (Auto) 3 % (0-10); Hematocrit 29.3 % (41.0-53.0); Hemoglobin 9.4 g/dL (13.5-16.0); Immature Granulocytes % (Auto) 2 % (0-0); Immature Granulocytes Auto 0.15 Thou/mm3 (0.00-0.00); Lymphocytes # (Auto) 2.1 Thou/mm3 (1.0-4.8); Lymphocytes % (Auto) 21 % (10-50); Mean Corpuscular HGB Conc 32.1 g/dl (31.0-37.0); Mean Corpuscular Hemoglobin 30.3 pg (25.0-35.0); Mean Corpuscular Volume 95 fL (80-100); Monocytes # (Auto) 0.9 Thou/mm3 (0.0-0.8); Monocytes % (Auto) 9 % (0-12); Neutrophils # (Auto) 6.6 Thou/mm3 (1.8-7.7); Neutrophils % (Auto) 66 % (37-80); Nucleated Red Blood Cell % 0 /100 WBC (0); Platelet Count 487 Thou/mm3 (140-440); RDW Standard Deviation 48.5 fL (35.1-43.9)
[2024-07-11 09:10] LABS: Alanine Aminotransferase 23 U/L (10-49); Albumin, Serum 3.7 gm/dL (3.5-5.0); Albumin/Globulin Ratio 1.3 (1.2-2.2); Alkaline Phosphatase 70 U/L (46-116); Anion Gap 8 (7-16); Aspartate Amino Transferase 21 U/L (0-34); BUN/Creatinine Ratio 60 Ratio (12-20); Bilirubin,Total 0.2 mg/dL (0.3-1.2); Blood Urea Nitrogen 12 mg/dL (9-23); Calcium 9.6 mg/dL (8.3-10.6); Calcium (Corrected) 9.8 mg/dL (8.5-10.1); Carbon Dioxide 25.8 mMol/L (20.0-31.0); Chloride 107 mMol/L (98-107); Creatinine (Component) 0.2 mg/dL (0.6-1.3); Estimated Creatinine Clearance 297.7 mL/min (>60); Globulin 2.8 gm/dL (2.3-3.5); Glucose 87 mg/dL (74-106); Osmolality,Calculated 279 (275-295); Potassium 3.8 mMol/L (3.4-5.1); Sodium 141 mMol/L (136-145); Total Protein 6.5 gm/dL (5.7-8.2); eGFR > 60 See Note
--- NOTE | 2024-07-11 10:02 | PC.SS ---
SS follow up note; SS contacted Team A to input Discharge orders. Patient will be discharging back to [facility], Subacute.
--- NOTE | 2024-07-11 10:04 | ESDS_ITS ---
Planned Discharge Date 07/11/24 DS: Providers Provider Date of admission: 07/02/24 01:31 Primary care physician: Jose Velasquez MD Admitting Provider: Caroline Easton MD Attending Provider on Admission: Joe Ryan MD Consults: 07/02/24 02:26 Referral Registered Dietitian Routine Comment: anorexia 07/04/24 11:53 Consult to Pulmonology Routine Comment: pleural effusion Consulting Provider: Sally Hernandez Attending Provider on DC: Bunny Velez MD Discharging Provider: Bunny Velez MD DS: Diagnosis Problem List Completed Was Problem List Reviewed/Reconciled?: Yes Hospital Course Hospital Course Hospital course: A 33-year-old male with past medical history of limb-girdle muscular dystrophy type IIb, chronic trach, history of ESBL UTI and recurrent pneumonia from subacute presented with fever, chills and chest pain, admitted in the hospital for acute on chronic hypoxic respiratory failure secondary to MDR Pseudomonas pneumonia. Chest CT showed prominent pneumonia and atelectasis in the right lobe, moderate pleural effusion. Labs at the time of admission are within normal limits except for potassium 3, WBC 15, lactate 2.2. VBG showed pH 7.45, pCO2 39 cocci IgM is negative. Pleural effusion cannot be drained as it is minimal in amount. Urine culture came back positive for gram-negative rods, sputum culture tested positive for MDR Pseudomonas aeruginosa. Patient is treated with cefepime during the hospital stay and discharged on PICC line to continue antibiotics and subacute. Patient is discharged to subacute with the following medications and recommendations Patient is to continue ?>Cefepime 2g Q8H IV (07/02- with end date 07/15/2024) to complete 14-day course antibiotic for pseudomonal pneumonia via PICC line Resume home medications as prescribed In case of emergency, patient would need to come back to the ED Follow up with PCP as outpatient Patient will be discharged back to subacute #Sepsis secondary to - ruled out #Hospital-acquired pneumonia versus ventilator associated pneumonia; MDR Pseudomonas #Acute on chronic hypoxic respiratory failure #Pleural effusion, right side; improving; insufficient for drainage #Hypercalcemia- resolved #History of limb-girdle muscular dystrophy type IIb #History of chronic trach #Failure to thrive #Severe Protein Malnutrition Patient plan of care was discussed with the attending physician, Dr. Ryan and senior resident Dr. Flavio Velez, PGY1 Time Spent with Patient Time attestation: Total time spent providing and/or coordinating discharge services: Time spent: Greater than 30 minutes Exam Vital Signs Temp Pulse Resp BP Pulse Ox O2 Del Method FiO2 97.4 F 71 14 90/62 100 Mechanical Ventilation 40 07/11/24 07:58 07/11/24 07:58 07/11/24 07:58 07/11/24 07:58 07/11/24 07:58 07/11/24 07:58 07/11/24 07:58 Narrative Exam GENERAL: A&Ox3 . Awake frail young man, obvious signs of muscle wasting and muscular dystrophy NEURO: no focal neurological deficits HEENT: Atraumatic, Normocephalic. mucous membranes moist. Eyes open, symmetrical, & clear, tracheostomy tube present HEART: Normal Heart Sounds LUNGS:clear breath sounds heard bilaterally ABDOMEN: soft, non-distended, non-tender, bowel sounds heard, no guarding or rebound tenderness SKIN: No Rash or ecchymoses EXTREMITIES: No edema, tenderness, contracted bilateral LE Discharge Plan Plan Patient Disposition: Xfer Skilled Nsg Fac (SNF) Care Plan Goals: Patient is to continue ?>Cefepime 2g Q8H IV (07/02- with end date 07/15/2024) to complete 14-day course antibiotic for pseudomonal pneumonia via PICC line Resume home medications as prescribed In case of emergency, patient would need to come back to the ED Follow up with PCP as outpatient Patient will be discharged back to subacute Prescriptions/Referrals Prescriptions/Med Rec: New pantoprazole 40 mg tablet,delayed release (DR/EC) 40 mg PO QDAY Qty: 30 0RF cefepime 2 gram recon soln 2 g IV Q8H 5 Days Continued melatonin 3 mg tablet 3 mg PO HS PRN (Reason: sleep) ipratropium-albuterol 0.5 mg-3 mg(2.5 mg base)/3 mL solution for nebulization 3 ml INHALATION Q4H PRN (Reason: shortness of breath or wheezing) Patient Comments: USE 1 AMPULE IN NEBULIZER EVERY 4 HOURS NEEDED acetaminophen 325 mg tablet 650 mg PO Q6H PRN (Reason: fever or pain) Patient Comments: TAKE 2 TABLETS BY MOUTH EVERY 6 HOURS NEEDED. lorazepam [Ativan] 0.5 mg tablet 0.5 mg buccal Q12H PRN (Reason: anxiety) bisacodyl 10 mg suppository 10 mg AZ QDAY PRN (Reason: constipation) magnesium hydroxide [Milk of Magnesia] 400 mg/5 mL suspension 30 ml PO PRN PRN (Reason: constipation) alum-mag hydroxide-simeth [Isidra-Lanta] 200-200-20 mg/5 mL suspension 30 ml PO Q6H PRN (Reason: indigestion) artificial tear(awpjr-ffo-haq) 0.1-0.3-0.2 % drops 2 drp ophthalmic (eye) QID PRN (Reason: dry eye(s)) carbamide peroxide 6.5 % drops 5 drp otic (ear) Q6HR ferrous sulfate [Iron (ferrous sulfate)] 325 mg (65 mg iron) tablet 325 mg PO Q OTHER DAY Referrals: Jose Velasquez MD [Primary Care Provider] - Patient/Caregiver Discharge Instructions Education Materials: Thoracentesis Dc, What Is Pneumonia?, Preventing Pneumonia, Treating Pneumonia, Muscular Dystrophy Print Language: Thai Stand Alone Forms: Smart Devices Info., Patient Portal Info Letter Discharge Order Discharge Orders: Discharge (Routine); Ordered 07/11/24 Ordered By: Bernard Muniz Quality Discharge Quality Measures VTE prophylaxis MD Attestestation MD Attestation I reviewed labs, imaging, EKG, home medications and prior available records. Face to face evaluation was performed by me. I have personally examined the patient and discussed assessment and plan with the IM team. I reviewed the resident note and agree with the plan with exceptions as below. Acute hypoxic respiratory failure Muscular dystrophy Sinus tachycardia Right lower lobe pneumonia, community-acquired pneumonia versus aspiration pneumonia Right pleural effusion Cocci IgM is negative Insufficient pleural fluid for drain Continue frequent suctioning Continue antibiotics: Cefepime Follow-up sputum culture: Showing gram-negative rods. Discussed with lab: Identified as multiresistant Pseudomonas but sensitive to cefepime. Consulted IR for PICC line placement and they finally got the line placed Trend WBC: Downtrending Wean off oxygen as tolerated Discussed with Dr. Castanon who accepted the patient to come back to subacute rehab Time spent is 40 minutes. More than 50% of the time was spent on patient education and coordination of care.
--- NOTE | 2024-07-11 10:20 | PC.NURSE ---
Dr. Velez aware that Cefepime order not present on discharge paperwork. Dr. Velez states I will enter that right now.
--- NOTE | 2024-07-11 10:54 | CHAP ---
Patient was visited by a Spiritual Care Volunteer on 07/11/2024 between 0900 and 0930 and received comfort, encouragement and/or prayer.
== END 2024-07-11 12:10 | disposition skilled nursing facility (03) | DRG 130 ==
LOC: SERX 07-02 01:12 → SERHOLD 07-02 02:02 → S2NX 07-02 18:10
PROVIDERS: Student in an Organized Health Care Education/Training Program; Admitting Provider Internal Medicine; Emergency Provider Emergency Medicine; PCP Specialist; Visit Provider Student in an Organized Health Care Education/Training Program
DX: J96.21 Acute and chronic respiratory failure with hypoxia (principal); J15.1 Pneumonia due to Pseudomonas; J95.851 Ventilator associated pneumonia; G71.039 Limb girdle muscular dystrophy, unspecified; J90 Pleural effusion, not elsewhere classified; E83.52 Hypercalcemia; R62.7 Adult failure to thrive; Z68.1 Body mass index [BMI] 19.9 or less, adult; Y84.8 Other medical procedures as the cause of abnormal reaction of the patient, or of later complication, without mention of misadventure at the time of the procedure; Z93.0 Tracheostomy status; E43 Unspecified severe protein-calorie malnutrition; Z16.24 Resistance to multiple antibiotics; Z87.01 Personal history of pneumonia (recurrent); Z63.4 Disappearance and death of family member; Z87.440 Personal history of urinary (tract) infections
CPT/HCPCS: 36415; 36600; 71045; 71250; 76705; 76999; 80053; 80061; 80202; 81001; 82803; 83036; 83605; 83615; 83735; 83880; 84100; 84145; 84443; 84484; 85025; 85379; 85610; 85652; 85730; 86140; 86331; 86635; 87040; 87077; 87081; 87186; 87205; 87400; 87634; 87811; 93005; 94003; 94640; 96365; 96366; 96367; 96372; 96375; 99285; A9270; C1751; C1894; J0131; J0456; J0692; J1650; J1885; J2060; J2470; J3370; J3475; J7030; J7050; J7120

== ENCOUNTER 2024-08-29 13:03 | Emergency (ER) | payer MEDICAID, SELFPAY ==
[2024-08-29 13:04] VITALS: BP 156/101; RESP 95; TEMP 37.1; O2SAT 100
--- NOTE | 2024-08-29 13:16 | EDNOTE_ITS ---
ED General RME/HPI General Chief complaint: Urogenital-Male Stated complaint: DIFFICULTY WITH CATHETER PLACEMENT Time Seen by Provider: 08/29/24 13:15 Arrival date/time: 08/29/24 13:03 CC: Inability urinate HPI patient comes to subacute the patient is only had dribbling, now has abdominal distention and pain. Last urinary stream was last night since then he said minimal dribbling. Patient has not low center abdominal pain. Related Data Home Medications ?Medication ?Instructions ?Recorded ?Confirmed acetaminophen 325 mg tablet 650 mg G-tube Q6HR PRN Renata n 08/21/24 08/21/24 artificial 1 drp Both eyes Q6HR PRN Red Eyes 08/21/24 08/21/24 tears([id number]) 0.1 %-0.3 %-0.2 % eye drops (GenTeal Tears Moderate) bisacodyl 10 mg rectal suppository 10 mg WI PRN PRN No BM Per Bowel 08/21/24 08/21/24 (Dulcolax (bisacodyl)) Management Protocol ferrous sulfate 325 mg (65 mg 325 mg PO Q48H 08/21/24 08/21/24 iron) tablet ipratropium 0.5 mg-albuterol 3 mg 3 ml INH Q6HRRT PRN Shortness Of 08/21/24 08/21/24 (2.5 mg base)/3 mL nebulization Breath Or Wheeze soln magnesium hydroxide 400 mg/5 mL 30 ml PO PRN PRN Const ipation 08/21/24 08/21/24 oral suspension (Milk of Magnesia) melatonin 3 mg tablet 3 mg PO HS PRN to initiate s leep. 08/21/24 08/21/24 pantoprazole 40 mg granules 40 mg PO QDAY 08/21/2404/05 delayed-release for susp in packet polyethylene glycol 3350 17 gram 17 g PO PRN PRN No BM Per Bowel 08/21/24 08/21/24 oral powder packet Management Protocol sodium phosphates 19 gram-7 133 ml WI PRN PRN No BM Pe r Bowel 08/21/24 08/21/24 gram/118 mL enema (Fleet Enema) Management Protocol Allergies Allergy/AdvReac Type Severity Reaction Status Date / Time No Known Allergies Allergy Unverified 09/27/23 15:37 Review of Systems Review of Systems Systems Reviewed: All systems reviewed, normal except as documented Past Medical History Past Medical History NEUROLOGIC: Negative Neurological Disorders or Seizures CARDIAC: Negative Cardiac Disorders or Congestive Heart Failure RESPIRATORY: Positive Asthma (MUSCULAR DYSTROPHY) and Pneumonia; Negative Chronic Obstructive Pulmonary Disease (COPD) GASTROINTESTINAL: Negative Gastrointestinal Disorders GENITOURINARY: Positive Genitourinary Disorders (UTI); Negative Renal Disease MUSCULOSKELETAL: Positive Musculoskeletal Disorders and Muscular Dystrophy (limb-gridle muscular dystrophy type 2) ENDOCRINE: Negative Endocrine Disorders, Diabetes Mellitus Type 1 or Diabetes Mellitus Type 2 HEMATOLOGIC: Negative Blood Disorders or Sickle Cell Disease PSYCHO/SOCIAL: Positive Depression OTHER HISTORY: Negative Autoimmune Disease, Anesthesia Reactions or Cancer Surgical History SURGICAL: Positive Tracheostomy (Trach, on ventilator) Social History SMOKING STATUS: Never smoker SECOND HAND EXPOSURE: No SUBSTANCE USE: does not use ED Exam Narrative Physical exam: [General: Deconditioned, in moderate discomfort but not in any acute distress Head normocephalic HEENT: Eyes pupils are PERRLA EOMs are intact mouth pink dry membranes uvula is visible. Phonation is normal. Patient is speaking with normal tone I suspect the patient has a fenestrated trach, dressing is clean dry intact. Within acceptable limits Neck is supple nontender Chest equal chest rise nontender to palpation Respiratory: Clear to auscultation no wheezes crackles or rubs CV: Rate rhythm is regular no murmurs rubs or clicks Abdomen is flat, mild low-dose abdominal distention exquisite tenderness to palpation. Back: No CVA tenderness no spinous process tenderness from cervical spine thoracic and lumbar spine Skin: Intact no petechiae rash induration ulceration or crepitus Extremities: Flaccid lower extremities, gross motor control in the upper extremity with significant deconditioning secondary to his chronic condition. Cap refill in all digits less than 2 seconds. Neuro: Awake alert oriented x2, person and place, Glascow coma 15 no focal deficits] Course Course Course Narrative: Patient is to maintain the Avendaño into the near future, at some time he can eventually have a urology consult to determine if the prostate size is an issue for natural normal urination without Avendaño catheter Quality Measures none Orders Category Date Time Status Urinalysis, C/S if Indicated Stat Lab 08/29/24 15:20 Completed Lidocaine Jelly 2% Urojet [Xylocaine Jelly 2% Urojet] Med 08/29/24 13:11 Discontinued See Dose Instructions TOP X1 ONE Vital Signs Vital signs: Vital Signs Temperature 98.7 F 08/29/24 13:04 Respiratory Rate 95 H 08/29/24 13:04 Blood Pressure 156/101 H 08/29/24 13:04 Pulse Oximetry (%) 100 08/29/24 13:04 Oxygen Delivery Method Trach Collar 08/29/24 13:04 Fraction of Inspired Oxygen 40 08/29/24 13:04 Procedures -ED Procedure Comment Avendaño placement, after 7 prior attempts, I used a 16 coud?, and a sterile set up, patient's penis intact no ulcerations, circumcised, no blood or skin tears at the meatus. The coud? was advanced with mild resistance into the bladder with clear yellow urine immediately draining down the catheter, balloon was inflated. A total of 1 L was drained with spontaneously, no clamping necessary as the bladder was empty. Patient expressed considerable relief. Patient tolerated the procedure well. Discharge Plan Plan Patient Disposition: Xfer Skilled Nursing Acute w/in Hosp Patient condition on transfer: Stable Prescriptions/Referrals Prescriptions/Med Rec: No Action acetaminophen 325 mg Tablet 650 mg G-tube Q6HR PRN (Reason: Pain) Label Comments: not to exceed 3 grms of tylenol from any source. ipratropium-albuterol 0.5 mg-3 mg(2.5 mg base)/3 mL Solution For Nebulization 3 ml INH Q6HRRT PRN (Reason: Shortness Of Breath Or Wheeze) polyethylene glycol 3350 17 gram Powder In Packet 17 g PO PRN PRN (Reason: No BM Per Bowel Management Protocol) Label Comments: Administer as needed if 2nd round bowel protocol ineffective. Rx Instructions: Mix with 4oz of water before giving. Hold tube feeding for 30 minutes after administration. Notify provider if no results from Miralax. melatonin 3 mg Tablet 3 mg PO HS PRN (Reason: to initiate sleep.) magnesium hydroxide [Milk of Magnesia] 400 mg/5 mL Suspension 30 ml PO PRN PRN (Reason: Constipation) Rx Instructions: CONC: 400MG/5ML bisacodyl [Dulcolax (bisacodyl)] 10 mg Suppository 10 mg WI PRN PRN (Reason: No BM Per Bowel Management Protocol) Rx Instructions: Administer as needed on 6th shift, if MOM ineffective. ferrous sulfate 325 mg (65 mg iron) Tablet 325 mg PO Q48H Label Comments: anemia Fleet Enema 19-7 gram/118 mL Enema 133 ml WI PRN PRN (Reason: No BM Per Bowel Management Protocol) Label Comments: If Dulcolax is ineffective on 3rd day / 7th shift, give Fleets enema per Bowel Management Protocol. Notify MD if no results from Enema. artificial tear(gijdo-[id number]) [GenTeal Tears Moderate] 0.1-0.3-0.2 % Drops 1 drp Both eyes Q6HR PRN (Reason: Red Eyes) pantoprazole [address] For Susp In Packet 40 mg PO QDAY Label Comments: for GERD. Referrals: Jose Velasquez MD [Primary Care Provider] - In 1 week Problem List Clinical Impression: Acute urinary retention Patient/Caregiver Discharge Instructions Education Materials: ED Avendaño Catheter, Care, ED Urinary Retention, Male Print Language: Malaysian PA/INTERNATIONAL TRADE MANAGER Supervising Physician PA/INTERNATIONAL TRADE MANAGER Supervising Physician: Miguel Botello ENP MDM Labs/Rad/Tests considered, not ordered Describe: Urine is negative for UTI. Medication Administration(s) Medication Administration History Discontinued Medications Lidocaine HCl (Lidocaine Jelly 2% (Urojet) 10 Ml Tube) 0 ml TOP X1 ONE Stop: 08/29/24 13:12 Last Admin: 08/29/24 13:23 Dose: 10 ml Documented By: ANISHA Diagnosis Differential Diagnosis ED Complaint MDM: Urinary obstruction urinary retention UTI
[2024-08-29] MEDS: LIDOCAINE JELLY 2% (Urojet) 10 ML TUBE TOP (13:23)
[2024-08-29 14:30] VITALS: BP 146/105; PULSE 117; RESP 20; TEMP 37.2; O2SAT 99
[2024-08-29 15:49] LABS: Collection Type, Urine Catheter; Squamous Epithelial Cell,Urine 0 /hpf (0-5)
[2024-08-29 16:10] LABS: Bilirubin,Urine Negative (Negative); Blood,Urine Negative (Negative); Clarity,Urine Clear (Clear/Hazy); Color,Urine Colorless (Lt Yel-Yel); Culture Indicated,Urine Not Indicated; Glucose, Urine Negative (Negative); Ketones,Urine Negative (Negative); Leukocyte Esterase,Urine Negative (Negative); Nitrite,Urine Negative (Negative); Protein,Urine Negative (Neg - Trace); RBC,Urine < 1 /hpf (0-3); Specific Gravity,Urine 1.007 (1.001-1.035); Urobilinogen,Urine Negative mg/dL (0.0-1.0); WBC,Urine < 1 /hpf (0-5)
--- NOTE | 2024-08-29 17:08 | PC.NURSE ---
Sub-acute called and informed patient being discharged after garcia catheter insertion and is rady to go back.
--- NOTE | 2024-08-29 17:36 | PC.NURSE ---
Received verbal order for 10mg Reglan IV and 4 mg morphine IV
== END 2024-08-29 17:33 | disposition skilled nursing facility (03) ==
PROVIDERS: Registered Nurse General Practice; Emergency Provider Emergency Medicine; PCP Specialist
DX: R33.9 Retention of urine, unspecified (principal); R14.0 Abdominal distension (gaseous)
CPT/HCPCS: 51702; 81001; 99283

== ENCOUNTER 2025-01-04 11:03 | Day surgery (SDC) | payer MEDICAID, SELFPAY ==
--- NOTE | 2025-01-04 11:37 | PD.SUROPNT ---
Date of Procedure 01/04/25 Pre Op Diagnosis Tracheostomy stenosis Post Op Diagnosis Tracheostomy stenosis Procedure Revision of tracheostomy Findings Significant granulation around the tracheostomy site creating stenosis Procedure Description Patient brought into operating room in supine position. After administration of general tracheal anesthesia, patient's tracheostomy was removed and he underwent orotracheal intubation. His neck was prepped and draped in standard surgical manner. He had significant stenosis around the tracheostomy site. The skin along with underlying granulation tissue were excised up to the trachea. The tracheotomy site was dilated. The orotracheal tube was pulled by anesthesiologist until the tube was just beyond the tracheotomy site. A size 7 cuffed tracheostomy was placed through the tracheotomy site and orotracheal was removed. Hemostasis was adequate and satisfactory. The tracheostomy balloon was inflated, patient was connected to ventilator where he was being ventilated without difficulty with normal end-tidal CO2. Appropriate dressings applied. A Velcro was placed around the neck to further secure tracheostomy. Patient tolerated procedure well. He was transferred to postanesthesia care in stable condition. Instruments, needles and sponge counts were reported to be correct x 2. Anesthesia GETA Pathology / specimen None Estimated Blood Loss 2 Condition Stable Disposition PACU Surgeon Mirza Billingsley MD Surgical Staff Operation Date: 01/04/25 12:15 <No data on this case meets the specified criteria>
[2025-01-04 11:47] VITALS: BP 123/93; PULSE 94; RESP 18; TEMP 36.6; O2SAT 100
--- NOTE | 2025-01-04 11:47 | SUR.PHASEI ---
1147 Patient arrived to recovery resting comfortably in bed, Sheyrl RT at bedside immediately hooked patient up to mechanical ventilator, setting managed by RT, patient awake and responding to staff, breathing unlabored, vital signs stable, dressing intact to tracheostomy; drain sponge, stoma site clean, no bleeding noted, denies pain and nausea, report received from Dr. Briggs and Louise CALDWELL
[2025-01-04 11:52] VITALS: BP 134/91; PULSE 97; RESP 20; O2SAT 98
[2025-01-04 11:57] VITALS: BP 124/92; PULSE 83; RESP 25; O2SAT 100
[2025-01-04 12:02] VITALS: BP 122/86; PULSE 84; RESP 18; O2SAT 98
[2025-01-04 12:17] VITALS: BP 113/86; PULSE 79; RESP 18; TEMP 36.7; O2SAT 100
[2025-01-04 12:30] VITALS: BP 119/87; PULSE 83; RESP 17; O2SAT 98
--- NOTE | 2025-01-04 12:37 | SUR.PHASEII ---
1237 Patient meets discharge criteria from recovery, awake and talking to staff, Sheryl RT at bedside to assist with transport patient to sub-acute, breathing unlabored, vital signs stable, denies pain and nausea, dressing intact; no bleeding noted, IV discontinued, discharge instructions given to Starla CALDWELL via telephone, signed in [facility]PS[facility] upon patient arriving to his room, patient transported via bed without incident.
--- NOTE | 2025-01-04 13:50 | SUR.PHASEI ---
1147 Patient arrived to recovery in bed, Sheryl RT at bedside and hooked patient up to mechanical vent immediately, patient awake and responding to staff, denies costa, dressing intact to tracheostomy; drain sponge, no bleeding noted, stoma site clean, Sheryl RT at bedside monitoring patient as well, report received from Dr. Saez and Louise CALDWELL
== END 2025-01-04 12:37 | disposition home or self-care (01) ==
LOC: S2EX 14:41
PROVIDERS: PCP Family Medicine; Referring Provider Surgery; Visit Provider Surgery
PROC: (CPT 31613; principal; 2025-01-04 12:00)
DX: J95.03 Malfunction of tracheostomy stoma (principal)
CPT/HCPCS: 31613; A4649; J2250; J2704; J3010; J3490